=== PATIENT | female | born 1955 | race Caucasian/White ===

== ENCOUNTER 2020-09-19 13:59 | Outpatient (REF) | payer MEDICARE, SELFPAY ==
[2020-09-19 14:02] LABS: MANUAL DIFF FLAG NO
[2020-09-19 14:10] LABS: Basophils Absolute Auto 0.1 X10*3/uL (0.0-0.2); Basophils Percent Auto 0.9 % (0-2); Eosinophils Absolute Auto 0.2 X10*3/uL (0.0-0.4); Eosinophils Percent Auto 3.7 % (0-4); Hematocrit 42.6 % (37-47); Hemoglobin 13.7 g/dl (12.0-16.0); Imm Gran Abs Auto 0.01 X10*3/uL (0.00-0.03); Imm Gran Pct Auto 0.2 % (0.0-0.4); Lymphocytes Absolute Auto 1.6 X10*3/uL (1.2-4.9); Lymphocytes Percent Auto 29.5 % (20-40); Mean Corpuscular HGB Conc 32.2 g/dl (31.0-35.0); Mean Corpuscular Hemoglobin 30.6 pg (27.0-33.0); Mean Corpuscular Volume 95.3 fL (80-98); Mean Platelet Volume 9.6 fL (9.4-12.3); Monocytes Absolute Auto 0.4 X10*3/uL (0.1-1.2); Neutrophils Absolute Auto 3.2 X10*3/uL (2.0-8.3); Neutrophils Percent Auto 58.7 % (45-73); Platelet Count 231 X10*3/uL (160-400); Red Blood Count 4.47 X10*6/uL (4.20-5.50); Red Cell Distribution Width 13.4 % (11.0-16.0); White Blood Count 5.5 X10*3/uL (4.8-10.8)
[2020-09-19 14:38] LABS: Alanine Aminotransferase 25 U/L (0-31); Albumin Level 4.1 g/dL (3.5-5.0); Alkaline Phosphatase 65 U/L (39-117); Anion Gap 13 (12-20); Aspartate Amino Transferase 23 U/L (5-31); Bilirubin Total 0.6 mg/dL (0.0-1.0); Blood Urea Nitrogen 20 mg/dL (9-16); Calcium 8.8 mg/dL (8.4-10.2); Carbon Dioxide 29 mmol/L (22-29); Chloride 104 mmol/L (96-108); Estimated Glomerular Filt Rate > 60; Glucose Fasting 92 mg/dL (60-99); Potassium 4.8 mmol/L (3.3-5.1); Sodium 141 mmol/L (135-145); Total Protein 6.7 g/dL (6.5-8.0)
[2020-09-19 15:00] LABS: Thyroid Stimulating Hormone 3.22 uIU/mL (0.32-4.0)
== END 2020-09-19 14:00 | disposition home or self-care (01) ==
LOC: HO.LNP 13:59
PROVIDERS: Visit Provider Internal Medicine
DX: R06.02 Shortness of breath (principal)
CPT/HCPCS: 80053; 84443; 85025

== ENCOUNTER → 2020-10-28 12:55 | Outpatient (REF) | payer MEDICARE, SELFPAY ==
--- NOTE | 2020-10-28 13:00 | CA_ITS ---
Transthoracic Echocardiogram Patient (Last, First, Middle): Becky Rios R Gender: Female Date of : 1955 Age: 65 Procedure Date: 10/28/2020 Procedure Type: Transthoracic Echocardiogram Location: OP Height: 157.48 cm Weight: 86.18 kg BSA: 1.87 m2 Heart Rate: bpm BP: 147 / 80 mmHg Beauty Culturist: EVERETTE Referring MD: Jesus Malave MD Symptoms: SHORTNESS OF BREATH Study Quality: Good ECG Rhythm: Sinus Conclusions: - The left ventricular systolic function is normal. The visually estimated ejection fraction is between 60-65%. - There is a bicuspid aortic valve. There is mild to moderate aortic valve stenosis. Trace to mild aortic regurgitation. Findings Left Ventricle Normal left ventricular cavity size. There is normal left ventricular wall thickness. The left ventricular systolic function is normal. The visually estimated ejection fraction is between 60-65%. There is no evidence of regional wall motion abnormalities. Diastolic function is normal for age. Right Ventricle Normal right ventricular cavity size and systolic function. Atria The left atrium is normal in size. The right atrium is normal in size. Aortic Valve There is a bicuspid aortic valve. There is mild to moderate aortic valve stenosis. The peak aortic velocity is 2.33 m/s with a calculated peak gradient of 22 mmHg. The mean gradient is 15 mmHg. The aortic valve area is 1.33 cm2. Trace to mild aortic regurgitation. Dimensionless index 0.39. Mitral Valve The mitral valve appears normal. There is trace mitral valve regurgitation. There is no mitral valve stenosis. Pulmonic Valve The pulmonic valve was not well visualized. There is trace pulmonic valve regurgitation. Tricuspid Valve Normal tricuspid valve structure. There is trace tricuspid valve regurgitation. The pulmonary artery systolic pressure is normal. Great Vessels The asc aorta is normal in size. Top normal ascending aortic size at 3.6 cm. Venous The inferior vena cava is normal in size and collapses greater than 50% with inspiration. Pericardium/Pleural There is no evidence of pericardial effusion. Prior Study Comparison No significant change compared to prior study dated: 01/17/2019. Measurements M-Mode Liner Measurements Normals - Women/Men AOV Cusps: 2.00 1.5-2.6 cm/m2 2D Linear Measurements IVSd: 0.95 0.6-0.9/0.6-1.0 cm LVIDd: 4.59 3.9-5.3/4.2-5.9 cm LVIDd Index: 2.45 2.4-3.2/2.2-3.1 cm/m2 LVIDs: 3.10 2.0-3.6 cm LVPWd: 0.94 0.7-1.1 cm Ao Root: 2.70 2.1-3.5 cm LA Diam: 3.40 2.7-3.8/3.0-4.0 cm LAIDs Index: 1.82 1.5-2.3 cm/m2 LV Mass: 181.36 67-162/88-224 g LV Mass Index: 96.99 43-95/49-115 g/m2 LVOT Diam: 2.10 3.0+(-)1.3 cm 2D Systolic Function EF 4C: 66.50 >55% EF 2C: 65.50 >55% EF BiP: 67.00 >55% Mitral Valve MV Pk E: 0.75 MV PK A: 0.70 MV Decel Time: 183.00 E/A: 1.10 E'Lateral: 9.79 E'Medial: 7.94 E/E' Med: 9.50 E/E' Lat: 7.70 PHT: 54.00 MVA PHT: 4.07 Decel [place]: 4.11 Aortic Valve AoV Pk [place]: 2.33 AoV Mn [place]: 1.85 AoV VTI: 0.64 AoV Pk Grad: 22.00 Aov Mn Grad: 15.00 JENNIFER Cont.VTI: 1.33 AI Pk [place]: 3.84 AI [place]: 2.08 LVOT LVOT Pk [place]: 0.92 LVOT Mn [place]: 0.65 LVOT VTI: 0.24 LVOT Pk Grad: 3.00 LVOT Mn Grad: 2.00 LVOT Diam: 2.10 LVOT Area: 3.46 Diastolic Function MV Pk E: 0.75 MV Pk A: 0.70 E/A: 1.10 E'Medial: 7.94 E/E' Med: 9.50 E' Laterial: 9.79 E/E' Lat: 7.70 Tricuspid Valve TR Pk [place]: 1.83 TR Pk Grad: 13.00 RA Press: 3.00 RVSP: 16.00 Great Vessels Aorta Ao Root-2D: 2.70 2.0-3.7 cm Ao Asc: 3.60 2.1-3.4 cm Ao Arch: 2.70 Pulmonary Valve PV Pk [place]: 1.30 Peak PV Grad: 7.00 Updated in Other Vendor System with Status of Final Louis Brooks MD electronically signed on 10/30/2020 4:53:56 PM with status of Final
== END ==
LOC: HO.CARD 12:55
PROVIDERS: PCP Internal Medicine; Visit Provider Internal Medicine
DX: R06.02 Shortness of breath (principal)
CPT/HCPCS: 93306

== ENCOUNTER 2020-12-29 09:29 | Outpatient (REF) | payer MEDICARE, SELFPAY ==
--- NOTE | ~2020-12-29 | XR_ITS ---
EXAMINATION: XR CHEST CLINICAL INFORMATION: Shortness of breath COMPARISON: Previous chest CTA December 2016 TECHNIQUE: 2 views of the chest were obtained. FINDINGS: The heart does not appear enlarged. The ascending thoracic aorta is prominent. This is similar to previous chest CTA December 2016. Hilar and mediastinal contours are otherwise unremarkable. The lungs are clear. There is no pleural effusion or pneumothorax. There are degenerative changes of the spine. XR/XR chest 2V IMPRESSION: No evidence for acute disease in the chest. Prominent ascending thoracic aorta similar to December 2016 chest CTA.
== END 2020-12-29 09:30 | disposition home or self-care (01) ==
LOC: HO.XRAY 09:29
PROVIDERS: PCP Internal Medicine; Visit Provider Internal Medicine
DX: R06.02 Shortness of breath (principal)
CPT/HCPCS: 71046

== ENCOUNTER 2021-06-12 10:31 | Outpatient (REF) | payer MEDICARE, SELFPAY ==
[2021-06-12 10:33] LABS: MANUAL DIFF FLAG NO
[2021-06-12 10:45] LABS: Basophils Percent Auto 0.7 % (0-2); Eosinophils Absolute Auto 0.2 X10*3/uL (0.0-0.4); Eosinophils Percent Auto 3.7 % (0-4); Hematocrit 42.3 % (37.0-47.0); Hemoglobin 13.9 g/dl (12.0-16.0); Imm Gran Abs Auto 0.01 X10*3/uL (0.00-0.03); Imm Gran Pct Auto 0.2 % (0.0-0.4); Lymphocytes Absolute Auto 1.5 X10*3/uL (1.2-4.9); Lymphocytes Percent Auto 32.8 % (20-40); Mean Corpuscular HGB Conc 32.9 g/dl (31.0-35.0); Mean Corpuscular Volume 94.2 fL (80.0-98.0); Mean Platelet Volume 9.8 fL (9.4-12.3); Monocytes Absolute Auto 0.3 X10*3/uL (0.1-1.2); Monocytes Percent Auto 7.4 % (2-11); Neutrophils Absolute Auto 2.5 x10*3/uL (2.0-8.3); Neutrophils Percent Auto 55.2 % (45-73); Platelet Count 240 X10*3/uL (160-400); Red Blood Count 4.49 X10*6/uL (4.20-5.50); Red Cell Distribution Width 13.5 % (11.0-16.0); White Blood Count 4.6 X10*3/uL (4.8-10.8)
[2021-06-12 10:48] LABS: Appearance Urine HAZY; Color Urine YELLOW; Glucose Urine UA NEG (NEG); Leukocyte Esterase Urine 2+ (NEG); Nitrite Urine NEG (NEG); Specific Gravity - Urine 1.025 (1.005-1.025); Urine Blood NEG (NEG); Urine Ketones NEG (NEG); Urine Protein NEG (NEG-TRACE)
[2021-06-12 10:57] LABS: Alanine Aminotransferase 14 U/L (0-31); Albumin Level 4.3 g/dL (3.5-5.0); Alkaline Phosphatase 62 U/L (39-117); Anion Gap 13 (12-20); Aspartate Amino Transferase 18 U/L (5-31); Bilirubin Total 0.8 mg/dL (0.0-1.0); Blood Urea Nitrogen 21 mg/dL (9-16); Calcium 8.9 mg/dL (8.4-10.2); Carbon Dioxide 26 mmol/L (22-29); Chloride 104 mmol/L (96-108); Cholesterol 195 mg/dL; Estimated Glomerular Filt Rate 59; Glucose Fasting 108 mg/dL (60-99); HDL Cholesterol 74 mg/dL; LDL Cholesterol Calculated 107 mg/dl; Mucus Urine 2+ /LPF; Sodium 139 mmol/L (135-145); Squamous Epithelial Cell Urine 3+ /LPF; Total Protein 7.1 g/dL (6.5-8.0); Triglycerides 72 mg/dL
[2021-06-12 10:58] LABS: Bacteria Urine 2+ /LPF; RBC Urine 0 /HPF (0)
[2021-06-12 11:17] LABS: Vitamin D 25-OH Total 36.8 ng/mL (>30)
== END 2021-06-12 10:32 | disposition home or self-care (01) ==
LOC: HO.LNP 10:31
PROVIDERS: PCP Internal Medicine; Visit Provider Internal Medicine
DX: Z00.00 Encounter for general adult medical examination without abnormal findings (principal); I35.0 Nonrheumatic aortic (valve) stenosis; I73.00 Raynaud's syndrome without gangrene
CPT/HCPCS: 80053; 80061; 81001; 82306; 85025

== ENCOUNTER → 2021-09-07 08:17 | Outpatient (REF) | payer MEDICARE, SELFPAY ==
--- NOTE | 2021-09-07 08:23 | CA_ITS ---
Transthoracic Echocardiogram Patient (Last, First, Middle): Becky Rios R Gender: Female Date of : 1955 Age: 66 Procedure Date: 09/07/2021 Procedure Type: Transthoracic Echocardiogram Location: OP Height: 157.48 cm Weight: 90.72 kg BSA: 1.91 m2 Heart Rate: bpm BP: 136 / 80 mmHg Tank Hoop Bender: DAWIT Referring MD: Jesus Malave MD Symptoms: NON RHEUMATIC VALVE STENOSIS I35.0, MURMUR R01.1 Study Quality: Good ECG Rhythm: Sinus Conclusions: - The left ventricular systolic function is normal. The calculated ejection fraction is 58% by biplane method. - There is a bicuspid aortic valve. There is mild to moderate aortic valve stenosis. Trace to mild aortic regurgitation. - There is mild dilatation of the ascending aorta measuring 3.90 cm and no dilatation of the aortic arch measuring 2.60 cm. Findings Left Ventricle Normal left ventricular cavity size. There is normal left ventricular wall thickness. The left ventricular systolic function is normal. The calculated ejection fraction is 58% by biplane method. There is no evidence of regional wall motion abnormalities. Diastolic function is normal for age. Right Ventricle Normal right ventricular cavity size and systolic function. Atria Both atria are normal in size. Aortic Valve There is a bicuspid aortic valve. There is mild to moderate aortic valve stenosis. The peak aortic velocity is 2.50 m/s with a calculated peak gradient of 25 mmHg. The mean gradient is 14 mmHg. The aortic valve area is 1.10 cm2. Trace to mild aortic regurgitation. Dimensionless index 0.32. Mitral Valve There is mild anterior mitral leaflet thickening. There is trace mitral valve regurgitation. There is no mitral valve stenosis. Pulmonic Valve The pulmonic valve was not well visualized. Tricuspid Valve Normal tricuspid valve structure. There is trace tricuspid valve regurgitation. The right ventricular systolic pressure is 35 mmHg. Top normal RVSP. Great Vessels There is mild dilatation of the ascending aorta measuring 3.90 cm and no dilatation of the aortic arch measuring 2.60 cm. Venous The inferior vena cava is mildly dilated and collapses greater than 50% with inspiration. Pericardium/Pleural There is no evidence of pericardial effusion. Prior Study Comparison Changes noted compared to prior study dated: 10/28/2020. Slight progression of aortic stenosis. Increase in ascending aortic size. Measurements 2D Linear Measurements IVSd: 1.00 0.6-0.9/0.6-1.0 cm LVIDd: 4.57 3.9-5.3/4.2-5.9 cm LVIDd Index: 2.39 2.4-3.2/2.2-3.1 cm/m2 LVIDs: 3.22 2.0-3.6 cm LVPWd: 1.00 0.7-1.1 cm Ao Root: 2.90 2.1-3.5 cm LA Diam: 3.50 2.7-3.8/3.0-4.0 cm LAIDs Index: 1.83 1.5-2.3 cm/m2 LV Mass: 195.00 67-162/88-224 g LV Mass Index: 102.10 43-95/49-115 g/m2 LVOT Diam: 2.10 3.0+(-)1.3 cm 2D Systolic Function EF 4C: 56.20 >55% EF 2C: 63.50 >55% EF BiP: 57.80 >55% Mitral Valve MV Pk E: 0.83 MV PK A: 0.59 MV Decel Time: 185.00 E/A: 1.40 E'Lateral: 8.16 E'Medial: 8.49 E/E' Med: 9.70 E/E' Lat: 10.10 PHT: 54.00 MVA PHT: 4.07 Decel [place]: 4.47 Aortic Valve AoV Pk [place]: 2.50 AoV Mn [place]: 1.81 AoV VTI: 0.65 AoV Pk Grad: 25.00 Aov Mn Grad: 14.00 JENNIFER Cont.VTI: 1.10 LVOT LVOT Pk [place]: 0.80 LVOT Mn [place]: 0.56 LVOT VTI: 0.21 LVOT Pk Grad: 3.00 LVOT Mn Grad: 1.00 LVOT Diam: 2.10 LVOT Area: 3.46 Diastolic Function MV Pk E: 0.83 MV Pk A: 0.59 E/A: 1.40 E'Medial: 8.49 E/E' Med: 9.70 E' Laterial: 8.16 E/E' Lat: 10.10 Right Ventricle TAPSE (mm): 17.00 TVS' [place]: 11.50 Tricuspid Valve TR Pk [place]: 2.62 TR Pk Grad: 27.00 RA Press: 8.00 RVSP: 35.00 Great Vessels Aorta Ao Root-2D: 2.90 2.0-3.7 cm Ao Asc: 3.90 2.1-3.4 cm Ao Arch: 2.60 Updated in Other Vendor System with Status of Final Louis Brooks MD electronically signed on 09/07/2021 12:01:15 PM with status of Final
== END ==
LOC: HO.CARD 08:17
PROVIDERS: PCP Internal Medicine; Visit Provider Internal Medicine
DX: R01.1 Cardiac murmur, unspecified (principal); R35.0 Frequency of micturition
CPT/HCPCS: 93306

== ENCOUNTER 2022-06-17 10:33 | Outpatient (REF) | payer MEDICARE, SELFPAY ==
[2022-06-17 10:36] LABS: MANUAL DIFF FLAG NO
[2022-06-17 10:54] LABS: Appearance Urine Cloudy; Color Urine Yellow; Glucose Urine UA Negative (Negative); Leukocyte Esterase Urine Large (3+) (Negative); Nitrite Urine Negative (Negative); PH 6.5 (5.0-9.0); UMIC TRIGGER UA YES; Urine Blood Negative (Negative); Urine Ketones Negative (Negative); Urine Protein Negative (Neg-Trace)
[2022-06-17 10:58] LABS: Basophils Percent Auto 0.8 % (0-2); Eosinophils Absolute Auto 0.2 X10*3/uL (0.0-0.4); Eosinophils Percent Auto 3.1 % (0-4); Hematocrit 43.5 % (37.0-47.0); Hemoglobin 14.4 g/dl (12.0-16.0); Imm Gran Abs Auto 0.01 X10*3/uL (0.00-0.03); Imm Gran Pct Auto 0.2 % (0.0-0.4); Lymphocytes Absolute Auto 1.7 X10*3/uL (1.2-4.9); Lymphocytes Percent Auto 31.9 % (20-40); Mean Corpuscular HGB Conc 33.1 g/dl (31.0-35.0); Mean Corpuscular Volume 93.5 fL (80.0-98.0); Mean Platelet Volume 9.5 fL (9.4-12.3); Monocytes Absolute Auto 0.4 X10*3/uL (0.1-1.2); Monocytes Percent Auto 6.9 % (2-11); Neutrophils Percent Auto 57.1 % (45-73); Platelet Count 253 X10*3/uL (160-400); Red Blood Count 4.65 X10*6/uL (4.20-5.50); Red Cell Distribution Width 13.3 % (11.0-16.0); White Blood Count 5.2 X10*3/uL (4.8-10.8)
[2022-06-17 11:20] LABS: Bacteria Urine 4+ (None Seen); Hyaline Casts Urine 0-2 /LPF (0-2); RBC Urine 0-2 /HPF (0-2)
[2022-06-17 11:24] LABS: Alanine Aminotransferase 9 U/L (0-31); Albumin Level 4.4 g/dL (3.5-5.0); Alkaline Phosphatase 58 U/L (39-117); Anion Gap 14 (12-20); Aspartate Amino Transferase 17 U/L (5-31); Bilirubin Total 0.7 mg/dL (0.0-1.0); Blood Urea Nitrogen 16 mg/dL (9-16); Calcium 9.3 mg/dL (8.4-10.2); Carbon Dioxide 27 mmol/L (22-29); Chloride 105 mmol/L (96-108); Cholesterol 201 mg/dL; Estimated Glomerular Filt Rate 60; Glucose Fasting 104 mg/dL (60-99); HDL Cholesterol 72 mg/dL; LDL Cholesterol Calculated 112 mg/dl; Potassium 4.4 mmol/L (3.3-5.1); Sodium 142 mmol/L (135-145); Total Protein 7.2 g/dL (6.5-8.0); Triglycerides 89 mg/dL; Vitamin D 25-OH Total 41.3 ng/mL (>30)
== END 2022-06-17 10:34 | disposition home or self-care (01) ==
LOC: HO.LNP 10:33
PROVIDERS: Visit Provider Internal Medicine
DX: Z00.00 Encounter for general adult medical examination without abnormal findings (principal); N95.8 Other specified menopausal and perimenopausal disorders
CPT/HCPCS: 80053; 80061; 81001; 82306; 85025

== ENCOUNTER 2022-07-15 20:29 | Emergency (ER) | payer MEDICARE, SELFPAY ==
--- NOTE | ~2022-07-15 | XR_ITS ---
EXAMINATION: XR CHEST CLINICAL INFORMATION: Chest pain COMPARISON: Chest x-ray 12/29/2020 TECHNIQUE: Frontal portable view of the chest was obtained. 10:21 PM FINDINGS: No significant abnormality is noted involving the heart, lungs, mediastinum, bony thorax or soft tissues. XR/XR chest 1V IMPRESSION: Unremarkable examination.
--- NOTE | ~2022-07-15 | CT_ITS ---
EXAMINATION: CT HEAD WITHOUT CONTRAST CLINICAL INFORMATION: Weakness. COMPARISON: None TECHNIQUE: Contiguous axial imaging was performed from the skull base to vertex without intravenous administration of contrast. This CT examination was performed using dose optimization techniques as appropriate, variously including the following: *Automated exposure control *Adjustment of mA and/or kV according to patient size (this includes techniques or standardized protocols for targeted exams where dose is matched to indication/reason for exam; i.e. extremities or head) *Use of iterative reconstruction technique DLP: 605 mGy-cm FINDINGS: No intracranial hemorrhage, tumors or acute infarcts noted. Mild diffuse commensurate prominence of ventricles and sulci. No focal parenchymal lesions of the brain. Minimal segmental calcific atherosclerosis of the cavernous portions of the internal carotid arteries. Normal appearance of the orbits and globes. No significant opacification of the visualized paranasal sinuses, mastoid air cells and middle ear cavities. CT/CT head/brain wo IV con IMPRESSION: No acute intracranial abnormalities.
[2022-07-15 20:44] VITALS: BP 186/78; BP 196/94; PULSE 61; PULSE 67; RESP 15; TEMP 36.6; O2SAT 98; BMI 37.1
--- NOTE | 2022-07-15 21:00 | ECG_ITS ---
Test Reason : SOB Blood Pressure : / mmHG Vent. Rate : 061 BPM Atrial Rate : 061 BPM P-R Int : 174 ms QRS Dur : 066 ms QT Int : 418 ms P-R-T Axes : 053 -03 031 degrees QTc Int : 420 ms Normal sinus rhythm Normal ECG No previous ECGs available Referred By: Beatrice Torres Electronically Signed By:RUI MALDONADO MD
[2022-07-15 21:41] VITALS: BP 174/72; PULSE 65; RESP 16; TEMP 36.6; O2SAT 97
[2022-07-15 21:52] LABS: MANUAL DIFF FLAG NO
[2022-07-15 21:53] LABS: Basophils Absolute Auto 0.1 X10*3/uL (0.0-0.2); Basophils Percent Auto 0.9 % (0-2); Eosinophils Absolute Auto 0.2 X10*3/uL (0.0-0.4); Eosinophils Percent Auto 2.5 % (0-4); Hematocrit 40.4 % (37.0-47.0); Hemoglobin 13.4 g/dl (12.0-16.0); Imm Gran Abs Auto 0.03 X10*3/uL (0.00-0.03); Imm Gran Pct Auto 0.4 % (0.0-0.4); Lymphocytes Absolute Auto 2.8 X10*3/uL (1.2-4.9); Lymphocytes Percent Auto 34.7 % (20-40); Mean Corpuscular HGB Conc 33.2 g/dl (31.0-35.0); Mean Corpuscular Hemoglobin 30.2 pg (27.0-33.0); Mean Corpuscular Volume 91.2 fL (80.0-98.0); Mean Platelet Volume 8.7 fL (9.4-12.3); Monocytes Absolute Auto 0.6 X10*3/uL (0.1-1.2); Monocytes Percent Auto 6.9 % (2-11); Neutrophils Absolute Auto 4.5 x10*3/uL (2.0-8.3); Neutrophils Percent Auto 54.6 % (45-73); Platelet Count 265 X10*3/uL (160-400); Red Blood Count 4.43 X10*6/uL (4.20-5.50); Red Cell Distribution Width 13.4 % (11.0-16.0); White Blood Count 8.2 X10*3/uL (4.8-10.8)
--- NOTE | 2022-07-15 21:53 | ED.SOB ---
HPI - SOB/Dyspnea General Chief Complaint: Dyspnea Stated Complaint: sob Time Seen by Provider: 07/15/22 20:47 History of Present Illness HPI Narrative: Patient is a 67-year-old female presented today with having shortness of breath that is ongoing. Patient denies any coughing congestion upper respiratory symptoms. Vaccinated for COVID. No headache no nausea no diarrhea. No GI symptoms. No chest pain, no orthopnea no leg swelling. No history of blood clots. No history of cancer. Patient from home. Complaining of increasing shortness of breath. Generalized malaise. No change in sleep pattern. No change in weight. No changes in medication. Related Data Allergies Allergy/AdvReac Type Severity Reaction Status Date / Time No Known Allergies Allergy Unverified 04/24/20 15:14 Review of Systems Review of Systems: Positive shortness of breath No chest pain no diaphoresis All system reviewed otherwise negative Yes all other systems are reviewed and are negative PMFSH Past Medical History Attestation statement: The following information was validated with the patient. Social History Social History Smoked in Last 30 Days: No Use of substances other than those prescribed or required for medical reasons: No Advance Directives: No Advance Directives Information Provided: No Physical Exam Vital Signs: Vital Signs: Last Vital Signs Temp 97.9 F 07/15/22 21:41 Pulse 65 07/15/22 21:41 Resp 16 07/15/22 21:41 BP 174/72 H 07/15/22 21:41 Pulse Ox 97 07/15/22 21:41 O2 Del Method 07/15/22 21:41 BMI result Body Mass Index 37.1 Appearance: Alert. Oriented X3. No acute distress. Eyes: Pupils equal, round and reactive to light. ENT: Pharynx normal. Neck: Normal inspection. Neck supple. No lymph nodes noted. No crepitus CVS: Normal heart rate and rhythm. Pulses normal. Normal S1 and S2 Respiratory: No respiratory distress. Breath sounds normal. No Wheezing. No rales Abdomen: Soft and nontender. No rigidity. No distention. good BS x4 Skin: Skin warm and dry. Normal skin color. Normal skin turgor. Extremities: No lower extremity edema. Neurovascular intact to all extremities. No Lacerations. No Rash Neuro: Oriented X 3. No motor deficit. No sensory deficit. Moving all extermities. No slurred speech Medical Decision Making Medical Decision Making MDM Narrative: Well-appearing O2 sats 97% on room air no distress. Will check x-ray for pneumonia pneumothorax. Will also get D-dimer to rule out the possibility of PE. Patient is low risk for PE. With a negative D-dimer unlikely to have PE. Patient's troponin is pending. No chest pain. Pain atypical for ACS. A thyroid will also be checked. Hemoglobin will be checked for anemia. Patient's troponin was negative. EKG showed a sinus pattern heart rate was 60 W[place] QRS QT within normal limits is no acute ST segment elevation. In the setting of patient having no chest pain just generalized malaise. Unlikely this secondary to ACS. Patient's TSH is normal. No evidence for hypo or hyperthyroid. Patient's hemoglobin is normal. No evidence for anemia. D-dimer is less than 150. In the setting of low risk history unlikely to have pulmonary emboli. Her O2 sats 98% on room air. Her flu COVID RSV were all negative. CT scan of the head was grossly negative for any acute evidence of bleeding no large mass. Patient's O2 sats did not drop with ambulation. Will discharge patient home. Patient walks with a steady gait reflexes at patella were equal. No hyperreflexia noted. Symptoms not consistent with Guillain-[place] Differential Diagnoses: Differential diagnosis (Flu RSV COVID, anemia, congestive heart failure, pneumonia, pulmonary emboli, mass, hypothyroid) Consideration of admission/observation: Consideration of Admission/Observation (O2 sat 98% no need for admission ambulates okay, has good follow-up) Lab Attestation: I reviewed the patient's lab results. Independent interpretation of EKG, rhythm strip, radiology study: Independent interp EKG,rhythm strip, radiology study I performed an independent interpretation of the: EKG My interpretation is Patient's EKG showed a sinus pattern heart rate is 60 WV QRS QT within normal limits is no acute ST segment elevation. Tests considered but not performed: Tests Considered But Not Performed (No need for CTA given negative D-dimer) Discharge Plan Discharge Clinical Impression: Shortness of breath Patient Disposition: Home, Self-Care Instructions: Shortness of Breath (ED) Referrals: PhysicianRobin [Primary Care Provider] - 07/16/22
[2022-07-15 22:12] LABS: Troponin-I High Sensitivity 14.2 ng/L (<3.5-17.0)
[2022-07-15 22:13] LABS: B Type Natriuretic Peptide 27 pg/mL (<100)
[2022-07-15 22:16] LABS: D Dimer High Sensitivity < 150 NG/ML
[2022-07-16 00:01] LABS: Anion Gap 13 (12-20); Blood Urea Nitrogen 24 mg/dL (9-16); Carbon Dioxide 27 mmol/L (22-29); Chloride 104 mmol/L (96-108); Creatinine Clr Calc Pharmacy 67.5; Estimated Glomerular Filt Rate > 60; Glucose Random 106 mg/dL (60-115); Potassium 4.2 mmol/L (3.3-5.1); Sodium 140 mmol/L (135-145)
[2022-07-16 00:22] LABS: TSH reflex Free T4 3.47 uIU/mL (0.32-4.0)
[2022-07-16 01:12] LABS: Influenza A PCR NEGATIVE (Negative); Influenza B PCR NEGATIVE (Negative); Resp Syncy Virus RNA Qual PCR NEGATIVE (Negative); SARS COV2 PCR INHOUSE NEGATIVE (Negative)
[2022-07-16 01:58] VITALS: BP 147/78; PULSE 64; RESP 14; O2SAT 95
== END 2022-07-16 02:08 | disposition home or self-care (01) ==
PROVIDERS: Emergency Provider Emergency Medicine Emergency Medical Services
DX: R06.02 Shortness of breath (principal); R51.9 Headache, unspecified; R53.1 Weakness; Z20.822 Contact with and (suspected) exposure to COVID-19; Z79.899 Other long term (current) drug therapy
CPT/HCPCS: 0241U; 36415; 70450; 71045; 80048; 83880; 84443; 84484; 85025; 85379; 93005; 99284

== ENCOUNTER → 2022-07-16 09:16 | Outpatient (REF) | payer MEDICARE, SELFPAY ==
--- NOTE | 2022-07-16 09:19 | CA_ITS ---
Transthoracic Echocardiogram Patient (Last, First, Middle): Becky Rios R Gender: Female Date of : 1955 Age: 67 Procedure Date: 07/16/2022 Procedure Type: Transthoracic Echocardiogram Location: OP Height: 157.48 cm Weight: 92.08 kg BSA: 1.92 m2 Heart Rate: 56 bpm BP: 147 / 78 mmHg Youth Care Professional: SB Referring MD: Jesus Malave MD Donor Relations Officer: Jameel Cordoba MD Symptoms: AORTIC VALVE DIS ORDER I35.9 Study Quality: Adequate ECG Rhythm: Bradycardia Conclusions: - 1. Normal LV systolic function with LVEF of 60 65% 2. [id number] aortic stenosis mild aortic regurgitation with possible underlying bicuspid aortic valve 3. Mildly dilated ascending aorta 4.2 cm 4. Normal RV systolic pressure 5. No gross pericardial effusion Findings Left Ventricle Normal left ventricular size, thickness, and systolic function. The visually estimated ejection fraction is between 60-65%. Spectral Doppler is indicative of a normal filling pattern. Right Ventricle Normal right ventricular cavity size and systolic function. Atria Both atria are normal in size. Interatrial shunt cannot be excluded. Aortic Valve The aortic valve was not well visualized. There is moderate calcification of the aortic valve. There is mild to moderate aortic valve stenosis. The peak aortic gradient is 20 mmHg.The mean gradient is 12 mmHg. There is mild aortic valve regurgitation. Mitral Valve Normal mitral valve structure and function. There is trace mitral valve regurgitation. There is no mitral valve stenosis. Pulmonic Valve The pulmonic valve is likely normal. There is trace pulmonic valve regurgitation. Tricuspid Valve Normal tricuspid valve structure. There is trace tricuspid valve regurgitation. The right ventricular systolic pressure is normal. The right ventricular systolic pressure is 25 mmHg. Normal right atrial pressure. There is no evidence of pulmonary hypertension. Great Vessels The pulmonary artery was not well visualized. There is mild dilatation of the ascending aorta measuring 4.20 cm. Venous The inferior vena cava is normal in size and collapses greater than 50% with inspiration. Pericardium/Pleural There is no evidence of pericardial effusion. Prior Study Comparison Changes noted compared to prior study dated: 09/07/2021. ascending aorta is slightly enlarged on this study measured at 4.2 cm compared to prior study. Measurements 2D Linear Measurements IVSd: 0.84 0.6-0.9/0.6-1.0 cm LVIDd: 4.91 3.9-5.3/4.2-5.9 cm LVIDd Index: 2.56 2.4-3.2/2.2-3.1 cm/m2 LVIDs: 3.03 2.0-3.6 cm LVPWd: 0.92 0.7-1.1 cm LA Diam: 3.60 2.7-3.8/3.0-4.0 cm LAIDs Index: 1.88 1.5-2.3 cm/m2 LV Mass: 184.81 67-162/88-224 g LV Mass Index: 96.26 43-95/49-115 g/m2 LVOT Diam: 2.00 3.0+(-)1.3 cm 2D Systolic Function EF 4C: 57.70 >55% EF 2C: 64.10 >55% EF BiP: 61.70 >55% Mitral Valve MV Pk E: 0.72 MV PK A: 0.56 MV Decel Time: 208.00 E/A: 1.30 E'Lateral: 6.74 E'Medial: 5.33 E/E' Med: 13.40 E/E' Lat: 10.60 PHT: 61.00 MVA PHT: 3.61 Decel [place]: 3.44 Aortic Valve AoV Pk [place]: 2.25 AoV Mn [place]: 1.61 AoV VTI: 0.58 AoV Pk Grad: 20.00 Aov Mn Grad: 12.00 JENNIFER Cont.VTI: 1.09 AI Pk [place]: 4.07 AI [place]: 1.73 LVOT LVOT Pk [place]: 0.83 LVOT Mn [place]: 0.57 LVOT VTI: 0.20 LVOT Pk Grad: 3.00 LVOT Mn Grad: 2.00 LVOT Diam: 2.00 LVOT Area: 3.14 Diastolic Function MV Pk E: 0.72 MV Pk A: 0.56 E/A: 1.30 E'Medial: 5.33 E/E' Med: 13.40 E' Laterial: 6.74 E/E' Lat: 10.60 Right Ventricle TAPSE (mm): 18.90 TVS' [place]: 10.20 Tricuspid Valve TR Pk [place]: 2.33 TR Pk Grad: 22.00 RA Press: 3.00 RVSP: 25.00 Great Vessels Aorta Sinus of Valsalva: 2.90 2.0-3.5 cm Ao Asc: 4.20 2.1-3.4 cm Ao Arch: 3.20 Pulmonary Veins Pulm Vein S/D 1.20 Pulmonary Valve PV Pk [place]: 0.88 Peak PV Grad: 3.00 Updated in Other Vendor System with Status of Final Jameel Cordoba MD electronically signed on 07/17/2022 1:40:46 PM with status of Final
== END ==
LOC: HO.CARD 09:16
PROVIDERS: PCP Internal Medicine; Visit Provider Internal Medicine
DX: I35.9 Nonrheumatic aortic valve disorder, unspecified (principal)
CPT/HCPCS: 93306

== ENCOUNTER 2022-07-16 11:45 | Outpatient (REF) | payer MEDICARE, SELFPAY ==
--- NOTE | ~2022-07-16 | CT_ITS ---
EXAMINATION: CT ANGIOGRAM OF THE CHEST WITH AND WITHOUT CONTRAST (CT PULMONARY ANGIOGRAM FOR PE) EXAMINATION: CT ANGIOGRAM OF THE CHEST WITH CONTRAST (CT PULMONARY ANGIOGRAM FOR PE) CLINICAL INFORMATION: Shortness of breath. Evaluate for pulmonary embolism. COMPARISON: Chest CT from 12/16/2016. CXR from 07/15/2022. TECHNIQUE: Prior to contrast administration, noncontrast localization images were obtained. Subsequently, multidetector volumetric imaging was performed from the thoracic inlet to below the diaphragms following the administration of 65 mL Omnipaque 350 intravenous contrast. No contrast reaction reported. Sagittal, coronal, and MIP oblique sagittal reformatted images were obtained on the CT workstation, uploaded to PACS, and reviewed. This CT examination was performed using dose optimization techniques as appropriate, variously including the following: *Automated exposure control *Adjustment of mA and/or kV according to patient size (this includes techniques or standardized protocols for targeted exams where dose is matched to indication/reason for exam; i.e. extremities or head) *Use of iterative reconstruction technique DLP: Total exam dose-length product 127 mGy-cm FINDINGS: LUNGS AND PLEURA: Trachea and central airways are widely patent and normal in caliber. Mild mosaic attenuation of the lungs can represent air trapping phenomenon from inflammation of small airways. A few scattered linear opacities of atelectasis are present in both lungs. No airspace disease, pleural effusion or pneumothorax. QUALITY OF STUDY/CONTRAST BOLUS: Satisfactory. CARDIOVASCULAR: The pulmonary arteries are normal in size. No embolic filling defects are identified within the main, lobar or segmental vessels. The heart size is normal. No pericardial effusion. At the level of the right pulmonary artery, the ascending thoracic aorta is 3.9 cm AP and 3.8 cm transverse diameter (see saved encarnacion image). The ascending thoracic aorta was 4 cm on 12/16/2016. No aneurysm or dissection. The great vessels arising from the top of the aortic arch are widely patent. MEDIASTINUM/LOWER NECK: No mediastinal mass. The esophagus and visualized portion of the thyroid gland are unremarkable. LYMPHATICS: No pathologic sized axillary, hilar or mediastinal lymph nodes. UPPER ABDOMEN: No acute findings in the visualized portion of the upper abdomen. Cholelithiasis is noted. OSSEOUS STRUCTURES: Multilevel degenerative disc disease of the thoracic spine. There is a stairstep pattern of mild degenerative anterolisthesis at C7-T1, T1-T2, T2-T3 and T3-T4. Mild anterolisthesis also noted at T10-11 and T11-12. Bone island of T10 vertebral body. No suspicious osseous lesions. CT/CT angio chest PE protocol IMPRESSION: * No evidence of pulmonary embolism. * There are a few scattered linear opacities of atelectasis in both lungs, which have mild mosaic attenuation. This could represent mild air trapping phenomenon from inflammation of small airways.
[2022-07-16] MEDS: iohexoL 350 MG/ML 100 ML INFUS..BTL 65 ML IV (12:18)
== END 2022-07-16 11:46 | disposition home or self-care (01) ==
LOC: HO.CT 11:45
PROVIDERS: PCP Internal Medicine; Visit Provider Internal Medicine
DX: R06.02 Shortness of breath (principal)
CPT/HCPCS: 71275; Q9967

== ENCOUNTER 2022-11-29 10:53 | Outpatient (REF) | payer MEDICARE, SELFPAY ==
--- NOTE | ~2022-11-29 | XR_ITS ---
EXAMINATION: AP PELVIS AND BILATERAL HIPS XR KNEE, RIGHT CLINICAL INFORMATION: Pain. COMPARISON: MRI lumbar spine of 01/24/2015. TECHNIQUE: AP and lateral views of the right knee. AP pelvis and 2 views of each hip. FINDINGS: RIGHT KNEE: AP and lateral views of the right knee performed. Right knee joint spaces are maintained. No acute fracture or dislocation. No right knee effusion. No significant spurring. AP PELVIS AND BILATERAL HIPS. AP view of the pelvis does not demonstrate any evidence of acute fracture or diastasis. There is some mild sclerosis about the sacroiliac joints bilaterally but without evidence of fusion or widening. Patient status post previous spinal surgery and fusion at the L4-L5 level. Degenerative disc disease is seen at the L5-S1 level. 2 views of the right hip demonstrate significant degenerative change with loss of the joint space superiorly and with marginal sclerosis and spurring. No femoral head collapse is identified. There is mild spurring of the right greater trochanter. 2 views of the left hip do not demonstrate any evidence of acute fracture or dislocation. There is some mild marginal spurring present. The joint space appears maintained. No destructive lytic or sclerotic lesions identified. No evidence of femoral head collapse. XR/XR knee RT 2V IMPRESSION: Status post spinal fusion L4-L5 with hardware intact. Degenerative disc disease L5-S1 level. Significant degenerative joint disease involving the right hip. No significant right knee abnormality appreciated.
--- NOTE | ~2022-11-29 | XR_ITS ---
EXAMINATION: AP PELVIS AND BILATERAL HIPS XR KNEE, RIGHT CLINICAL INFORMATION: Pain. COMPARISON: MRI lumbar spine of 01/24/2015. TECHNIQUE: AP and lateral views of the right knee. AP pelvis and 2 views of each hip. FINDINGS: RIGHT KNEE: AP and lateral views of the right knee performed. Right knee joint spaces are maintained. No acute fracture or dislocation. No right knee effusion. No significant spurring. AP PELVIS AND BILATERAL HIPS. AP view of the pelvis does not demonstrate any evidence of acute fracture or diastasis. There is some mild sclerosis about the sacroiliac joints bilaterally but without evidence of fusion or widening. Patient status post previous spinal surgery and fusion at the L4-L5 level. Degenerative disc disease is seen at the L5-S1 level. 2 views of the right hip demonstrate significant degenerative change with loss of the joint space superiorly and with marginal sclerosis and spurring. No femoral head collapse is identified. There is mild spurring of the right greater trochanter. 2 views of the left hip do not demonstrate any evidence of acute fracture or dislocation. There is some mild marginal spurring present. The joint space appears maintained. No destructive lytic or sclerotic lesions identified. No evidence of femoral head collapse. XR/XR hips LEA min 3V IMPRESSION: Status post spinal fusion L4-L5 with hardware intact. Degenerative disc disease L5-S1 level. Significant degenerative joint disease involving the right hip. No significant right knee abnormality appreciated.
== END 2022-11-29 10:54 | disposition home or self-care (01) ==
LOC: HO.XRAY 10:53
PROVIDERS: PCP Internal Medicine; Visit Provider Internal Medicine
DX: M25.552 Pain in left hip (principal); M25.551 Pain in right hip
CPT/HCPCS: 73522; 73560

== ENCOUNTER 2023-03-29 14:49 | Outpatient (AMB) | payer MEDICARE, SELFPAY ==
[2023-03-29 14:54] VITALS: BP 150/80; PULSE 55; BMI 29.8
--- NOTE | 2023-03-29 14:54 | MHC.OFFVIS ---
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 In the past, she was seen regarding bicuspid aortic valve but we have not seen recently. Her significant other has been diagnosed with dementia and she is dealing with that issue for some time. Otherwise, she needs hip surgery and hence preoperative cardiac evaluation. Overall, she does not really have any clear exertional symptoms like chest pain or shortness of breath. However, there is some limitation from the pain itself. Before all of this, she was very active and used to play tennis extra. No documented coronary disease, myocardial infarction. Her blood pressures are on the higher side but she does not seem to be on blood pressure medicines. [facility] Medical History (Updated 03/29/23 @ 15:38 by Louis Brooks MD) Ascending aorta enlargement Bicuspid aortic valve Non-rheumatic aortic stenosis Family History (Updated 03/29/23 @ 15:00 by Yeny Nunez) Mother Heart problem Father Heart problem Social History (Updated 03/29/23 @ 15:00 by Yeny Nunez) Alcohol intake: never Patient Tobacco Use Status: Never used Tobacco Review of Systems Const Denies weakness ENT Denies dizziness Card Denies chest pain, Denies chest pain with activity, Denies syncope, Denies rapid heart rate, Denies pedal edema, Denies edema, Denies leg edema, Denies lightheadedness, Denies palpitations, Denies dyspnea, Denies dyspnea on exertion and Denies orthopnea Resp Denies cough, Denies dyspnea and Denies dyspnea on exertion GI Denies hematochezia and Denies change in stool character Musc Denies abnormal gait, Denies muscle cramps, Denies muscle weakness, Denies numbness, Denies radiating pain into limb and Denies tingling Neuro Denies abnormal gait, Denies dizziness, Denies syncope, Denies numbness, Denies tingling and Denies weakness Endo Denies palpitations Physical Exam Vital Signs: Last Vital Signs Pulse 55 03/29/23 14:54 BP 150/80 H 03/29/23 14:54 BMI result Body Mass Index 29.8 Const General: comfortable and no acute distress Orientation/consciousness: patient oriented x3 HEENT Other: Unremarkable Head: Yes normal to inspection Neck Neck: Yes normal visual inspection Chest Chest palpation & inspection: normal inspection of the chest Resp Auscultation: clear to auscultation bilaterally Cardio Palpation: normal PMI Heart sounds: S1 normal heart sound present, S2 normal heart sound present, no gallops, Murmur heart sound present systolic II/ and at the right sternal border and no rubs GI Palpation (GI): Soft to palpation Back/Spine/Pelvis Other: unremarkable Skin General skin exam: no rashes or lesions noted Neuro General: patient oriented x3 Extrem General: Yes normal to inspection Psych Mental Status: mental status grossly normal Office Procedures EKG Details: EKG with sinus bradycardia 55/Min; no significant ST-T changes and otherwise unremarkable[place] [address]-[id number], Complete Assessment & Plan Assessment & Plan (1) Preoperative cardiovascular examination: Code(s): Z01.810 - Encounter for preprocedural cardiovascular examination (2) Non-rheumatic aortic stenosis: Code(s): I35.0 - Nonrheumatic aortic (valve) stenosis (3) Bicuspid aortic valve: Code(s): Q23.1 - Congenital insufficiency of aortic valve (4) Ascending aorta enlargement: Code(s): I77.89 - Other specified disorders of arteries and arterioles (5) Elevated blood pressure reading without diagnosis of hypertension: Code(s): R03.0 - Elevated blood-pressure reading, without diagnosis of hypertension Plan In the most recent echocardiogram from July, LVEF 60-65%. Ibjq-ug-dtmbhnqq aortic stenosis with suspected bicuspid aortic valve. Mild ascending aortic dilatation at 4.2 cm. In the echocardiogram prior to that, ascending aortic size was 3.9 cm. Hence there is a change. With regard to the hip surgery, suggest myocardial perfusion imaging for further evaluation. With regard to bicuspid aortic valve/aortic stenosis/aortic dilatation, will need periodic echocardiograms. Otherwise, blood pressure seems to be on the higher side and she will need to probably do some home blood pressures and may need medications for the same. She would like to consolidate her care with her PCP. We will see her as and when necessary. She would also like to get echocardiograms through her own PCP who will order. Orders: Orders CA stress test Today Z01.810 - Encounter for preprocedural cardiovascular examination NM cardiolite stress test Today Z01.810 - Encounter for preprocedural cardiovascular examination Coding Level of Care Code New Pt Level 4 (41715) Diagnoses Preoperative cardiovascular examination Z01.810 Non-rheumatic aortic stenosis I35.0 Bicuspid aortic valve Q23.1 Ascending aorta enlargement I77.89 Elevated blood pressure reading without diagnosis of hypertension R03.0 CPT Codes EKG - CPT: [id number], Complete ([id number])
== END 2023-03-29 15:23 | disposition home or self-care (01) ==
PROVIDERS: PCP Internal Medicine; Referring Provider Internal Medicine; Visit Provider Internal Medicine
DX: I77.89 Other specified disorders of arteries and arterioles (principal); I35.0 Nonrheumatic aortic (valve) stenosis; Z01.810 Encounter for preprocedural cardiovascular examination; R00.1 Bradycardia, unspecified
CPT/HCPCS: 93010; 99204

== ENCOUNTER → 2023-03-29 14:49 | Outpatient (BNVA) | payer MEDICARE, SELFPAY | PROVIDERS: PCP Internal Medicine; Referring Provider Internal Medicine; Visit Provider Internal Medicine | DX: Z01.810 Encounter for preprocedural cardiovascular examination (principal); I35.0 Nonrheumatic aortic (valve) stenosis; I77.89 Other specified disorders of arteries and arterioles; R03.0 Elevated blood-pressure reading, without diagnosis of hypertension; Q23.1 Congenital insufficiency of aortic valve | CPT/HCPCS: 93005; 99202 ==

== ENCOUNTER → 2023-04-18 08:50 | Outpatient (REF) | payer MEDICARE, SELFPAY ==
--- NOTE | ~2023-04-18 | NM_ITS ---
Exercise Myocardial perfusion study Indication: Preoperative cardiovascular risk stratification Technique: The patient was brought in for an exercise perfusion study on 04/18/2023. Patient performed exercise as per Cl protocol and was injected 25 mCi of sestamibi was given intravenously one target HR was achieved. Images were obtained using the SPECT gamma camera interlaced with the gating device. Images were obtained in supine position. Resting perfusion study was performed on 04/19/2023. Patient was administered 25 mCi of sestamibi intravenously at rest. Images were then obtained in supine position. Images obtained with and without CT attenuation. Total DLP 84 mGy-cm. Images were processed with the software and compared side to side in short axis, horizontal long axis and vertical long axis views. Findings: The stress perfusion study showed non attenuated images show minimally reduced uptake in the LV myocardium. Remainder of the LV myocardium normally perfused. Attenuation corrected images show mildly to moderately reduced uptake in the apex of the LV myocardium.. The gated study shows normal LV systolic function with calculated LVEF of 57%. LV cavity is normal in size. The gated study shows normal systolic wall thickening and contraction of all segments. There is no transient ischemic dilation. Resting study shows no change in perfusion pattern compared to stress perfusion study. Gating at rest reveals normal systolic wall motion with ejection fraction at 55%. The findings are consistent with no clear reversible defect suggestive ischemia. Minimal apical defect most likely due to soft tissue attenuation. NM/NM cardiolite stress test Impression: 1. Normal myocardial perfusion 2. Gated LVEF is 57% 3. Transient ischemic dilatation not present Stress EKG is negative for ischemia
--- NOTE | 2023-04-18 08:52 | CA_ITS ---
Acquisition Time: 2023-04-18 09:05:02 Total Exercise Time: 00:07:35 Test Indications: AORTIC STENOSIS Medications: ASA CELECOXIB ESTRADRAL Protocol: SUZIE Max HR: 146 BPM 97% of Pred: 150 BPM Max BP: 172/070 mmHG Max Work Load: 9.4 METS Exercise stress test exercuse 7 min 35 sec of Suzie protocol achieving 97% MPHR, without anignal symptoms, with isolated PVCs, with normotensive response to exercise, without EKG changes. Nuclear images pending. Test reviewed with Dr. Gunter. Referred By: Gianna Gunter Overread By: GIANNA GUNTER
== END ==
LOC: HO.CARD 08:50
PROVIDERS: PCP Internal Medicine; Visit Provider Internal Medicine
DX: Z01.810 Encounter for preprocedural cardiovascular examination (principal)
CPT/HCPCS: 78452; 93017; A9500

== ENCOUNTER → 2023-04-18 09:13 | Outpatient (BNV) | payer MEDICARE, SELFPAY | PROVIDERS: PCP Internal Medicine; Visit Provider Internal Medicine Cardiovascular Disease | DX: I35.0 Nonrheumatic aortic (valve) stenosis (principal); Z01.810 Encounter for preprocedural cardiovascular examination | CPT/HCPCS: 78452; 93016; 93018 ==

== ENCOUNTER 2023-06-23 10:52 | Outpatient (REF) | payer MEDICARE, SELFPAY ==
[2023-06-23 10:55] LABS: MANUAL DIFF FLAG NO
[2023-06-23 11:00] LABS: Basophils Absolute Auto 0.1 X10*3/uL (0.0-0.2); Eosinophils Absolute Auto 0.2 X10*3/uL (0.0-0.4); Eosinophils Percent Auto 2.9 % (0-4); Hematocrit 42.9 % (37.0-47.0); Imm Gran Abs Auto 0.02 X10*3/uL (0.00-0.03); Imm Gran Pct Auto 0.4 % (0.0-0.4); Lymphocytes Absolute Auto 1.3 X10*3/uL (1.2-4.9); Lymphocytes Percent Auto 24.6 % (20-40); Mean Corpuscular HGB Conc 32.6 g/dl (31.0-35.0); Mean Corpuscular Hemoglobin 30.4 pg (27.0-33.0); Mean Corpuscular Volume 93.3 fL (80.0-98.0); Mean Platelet Volume 10.2 fL (9.4-12.3); Monocytes Absolute Auto 0.3 X10*3/uL (0.1-1.2); Neutrophils Absolute Auto 3.4 x10*3/uL (2.0-8.3); Neutrophils Percent Auto 65.1 % (45-73); Platelet Count 191 X10*3/uL (160-400); Red Cell Distribution Width 13.6 % (11.0-16.0); White Blood Count 5.2 X10*3/uL (4.8-10.8)
[2023-06-23 11:01] LABS: Appearance Urine Clear; Color Urine Yellow; Glucose Urine UA Negative (Negative); Leukocyte Esterase Urine Moderate (2+) (Negative); Nitrite Urine Negative (Negative); PH 5.5 (5.0-9.0); UMIC TRIGGER UACC YES; Urine Blood Negative (Negative); Urine Ketones Negative (Negative); Urine Protein Negative (Neg-Trace)
[2023-06-23 11:06] LABS: Bacteria Urine 1+ (None Seen); Hyaline Casts Urine 0-2 /LPF (0-2); RBC Urine 0-2 /HPF (0-2); UACC Culture Trigger YES
[2023-06-23 11:50] LABS: Alanine Aminotransferase 8 U/L (0-31); Albumin Level 4.5 g/dL (3.5-5.0); Alkaline Phosphatase 74 U/L (39-117); Anion Gap 13 (12-20); Aspartate Amino Transferase 22 U/L (5-31); Bilirubin Total 0.6 mg/dL (0.0-1.0); Blood Urea Nitrogen 19 mg/dL (9-16); Calcium 9.5 mg/dL (8.4-10.2); Carbon Dioxide 26 mmol/L (22-29); Chloride 105 mmol/L (96-108); Cholesterol 201 mg/dL (<200); Estimated Glomerular Filt Rate > 60; Glucose Fasting 89 mg/dL (60-99); HDL Cholesterol 79 mg/dL (>40); LDL Cholesterol Calculated 113 mg/dL (<100); Potassium 4.3 mmol/L (3.3-5.1); Sodium 140 mmol/L (135-145); Total Protein 7.7 g/dL (6.5-8.0); Triglycerides 49 mg/dL (<150)
== END 2023-06-23 10:53 | disposition home or self-care (01) ==
LOC: HO.LNP 10:52
PROVIDERS: Visit Provider Internal Medicine
DX: Z00.00 Encounter for general adult medical examination without abnormal findings (principal); R82.90 Unspecified abnormal findings in urine
CPT/HCPCS: 80053; 80061; 81001; 85025; 87086

== ENCOUNTER → 2023-08-16 10:42 | Outpatient (REF) | payer MEDICARE, SELFPAY ==
--- NOTE | 2023-08-16 11:00 | CA_ITS ---
Transthoracic Echocardiogram Patient (Last, First, Middle): Becky Rios R Gender: Female Date of : 1955 Age: 68 Procedure Date: 08/16/2023 Procedure Type: Transthoracic Echocardiogram Location: OP Height: 157.48 cm Weight: 73.94 kg BSA: 1.75 m2 Heart Rate: bpm BP: 120 / 72 mmHg [employer] Piping Designer: CAM Referring MD: Jesus Malave MD Director Group Sales: Jameel Cordoba MD Symptoms: I35.9 AORTIC VALVE DIS ORDER Study Quality: Adequate ECG Rhythm: Sinus Conclusions: - 1. Normal LV systolic function with LVEF of 60-65% 2. Bicuspid aortic valve with [id number] aortic stenosis and mild aortic regurgitation 3. Mildly dilated ascending aorta at 4.2 cm 4. Normal RV systolic pressure 5. No gross pericardial effusion Findings Left Ventricle Normal left ventricular size, thickness, and systolic function. The visually estimated ejection fraction is between 60-65%. Spectral Doppler is indicative of a normal filling pattern. Peak GLS is -19.7%, within normal limits Right Ventricle Normal right ventricular cavity size and systolic function. Atria The left atrium is likely dilated. There is no evidence of interatrial shunt. The right atrium is normal in size. Aortic Valve There is a bicuspid aortic valve. There is moderate calcification of the aortic valve. There is mild to moderate aortic valve stenosis. The peak aortic gradient is 26 mmHg.The mean gradient is 16 mmHg. There is mild aortic valve regurgitation. Mitral Valve Normal mitral valve structure and function. There is trace mitral valve regurgitation. There is no mitral valve stenosis. Pulmonic Valve The pulmonic valve is likely normal. There is trace pulmonic valve regurgitation. Tricuspid Valve Normal tricuspid valve structure. There is mild tricuspid valve regurgitation. The right ventricular systolic pressure is normal. The right ventricular systolic pressure is 32 mmHg. Normal right atrial pressure. There is no evidence of pulmonary hypertension. Great Vessels The pulmonary artery was not well visualized. There is mild dilatation of the ascending aorta measuring 4.20 cm. Venous The inferior vena cava is normal in size and collapses greater than 50% with inspiration. Pericardium/Pleural There is no evidence of pericardial effusion. Prior Study Comparison No significant change compared to prior study dated: 07/16/2022. Measurements 2D Linear Measurements IVSd: 0.95 0.6-0.9/0.6-1.0 cm LVIDd: 4.69 3.9-5.3/4.2-5.9 cm LVIDd Index: 2.68 2.4-3.2/2.2-3.1 cm/m2 LVIDs: 2.97 2.0-3.6 cm LVPWd: 1.03 0.7-1.1 cm LA Diam: 3.60 2.7-3.8/3.0-4.0 cm LAIDs Index: 2.06 1.5-2.3 cm/m2 LV Mass: 201.74 67-162/88-224 g LV Mass Index: 115.28 43-95/49-115 g/m2 LVOT Diam: 2.00 3.0+(-)1.3 cm 2D Systolic Function EF 4C: 59.60 >55% EF 2C: 67.60 >55% EF BiP: 64.20 >55% Mitral Valve MV Pk E: 0.80 MV PK A: 0.55 MV Decel Time: 172.00 E/A: 1.40 E'Lateral: 8.49 E'Medial: 7.72 E/E' Med: 10.40 E/E' Lat: 9.40 PHT: 50.00 MVA PHT: 4.40 Decel [place]: 4.66 Aortic Valve AoV Pk [place]: 2.57 AoV Mn [place]: 1.84 AoV VTI: 0.69 AoV Pk Grad: 26.00 Aov Mn Grad: 16.00 JENNIFER Cont.VTI: 1.04 AI Pk [place]: 3.88 AI [place]: 1.69 LVOT LVOT Pk [place]: 0.83 LVOT Mn [place]: 0.63 LVOT VTI: 0.23 LVOT Pk Grad: 3.00 LVOT Mn Grad: 2.00 LVOT Diam: 2.00 LVOT Area: 3.14 Diastolic Function MV Pk E: 0.80 MV Pk A: 0.55 E/A: 1.40 E'Medial: 7.72 E/E' Med: 10.40 E' Laterial: 8.49 E/E' Lat: 9.40 Right Ventricle TAPSE (mm): 20.00 TVS' [place]: 10.90 Tricuspid Valve TR Pk [place]: 2.44 TR Pk Grad: 24.00 RA Press: 8.00 RVSP: 32.00 Great Vessels Aorta Sinus of Valsalva: 2.80 2.0-3.[address] [place]: 2.29 1.7-3.4 cm Ao Asc: 4.20 2.1-3.4 cm Ao Arch: 3.20 Updated in Other Vendor System with Status of Final Jameel Cordoba MD electronically signed on 08/16/2023 5:33:24 PM with status of Final
== END ==
LOC: HO.CARD 10:42
PROVIDERS: PCP Internal Medicine; Visit Provider Internal Medicine
DX: I35.9 Nonrheumatic aortic valve disorder, unspecified (principal)
CPT/HCPCS: 93306; 93356

== ENCOUNTER → 2023-08-16 11:00 | Outpatient (BNV) | payer MEDICARE, SELFPAY | PROVIDERS: PCP Internal Medicine; Visit Provider Internal Medicine Cardiovascular Disease | DX: I35.9 Nonrheumatic aortic valve disorder, unspecified (principal) | CPT/HCPCS: 93306 ==

== ENCOUNTER 2024-07-26 10:42 | Outpatient (REF) | payer MEDICARE, SELFPAY ==
[2024-07-26 10:54] LABS: MANUAL DIFF FLAG NO
[2024-07-26 11:14] LABS: Basophils Absolute Auto 0.1 X10*3/uL (0.0-0.2); Basophils Percent Auto 1.4 % (0-2); Eosinophils Absolute Auto 0.2 X10*3/uL (0.0-0.4); Eosinophils Percent Auto 5.3 % (0-4); Hematocrit 41.7 % (37.0-47.0); Hemoglobin 14.1 g/dl (12.0-16.0); Imm Gran Abs Auto 0.02 X10*3/uL (0.00-0.03); Imm Gran Pct Auto 0.5 % (0.0-0.4); Lymphocytes Absolute Auto 1.5 X10*3/uL (1.2-4.9); Lymphocytes Percent Auto 35.4 % (20-40); Mean Corpuscular HGB Conc 33.8 g/dl (31.0-35.0); Mean Corpuscular Hemoglobin 30.9 pg (27.0-33.0); Mean Corpuscular Volume 91.2 fL (80.0-98.0); Mean Platelet Volume 9.4 fL (9.4-12.3); Monocytes Absolute Auto 0.3 X10*3/uL (0.1-1.2); Monocytes Percent Auto 6.9 % (2-11); Neutrophils Absolute Auto 2.2 x10*3/uL (2.0-8.3); Neutrophils Percent Auto 50.5 % (45-73); Platelet Count 261 X10*3/uL (160-400); Red Blood Count 4.57 X10*6/uL (4.20-5.50); Red Cell Distribution Width 13.4 % (11.0-16.0); White Blood Count 4.4 X10*3/uL (4.8-10.8)
[2024-07-26 11:27] LABS: Appearance Urine Cloudy; Color Urine Yellow; Glucose Urine UA Negative (Negative); Leukocyte Esterase Urine Moderate (2+) (Negative); Nitrite Urine Negative (Negative); UMIC TRIGGER UACC YES; Urine Blood Negative (Negative); Urine Ketones Negative (Negative); Urine Protein Negative (Neg-Trace)
[2024-07-26 11:42] LABS: Bacteria Urine 1+ (None Seen); Hyaline Casts Urine 0-2 /LPF (0-2); RBC Urine 0-2 /HPF (0-2); UACC Culture Trigger YES; WBC Urine 0-5 /HPF (0-5)
[2024-07-26 11:52] LABS: Alanine Aminotransferase 14 U/L (0-31); Albumin Level 4.1 g/dL (3.5-5.0); Alkaline Phosphatase 58 U/L (39-117); Anion Gap 10 (12-20); Aspartate Amino Transferase 23 U/L (5-31); Bilirubin Total 0.7 mg/dL (0.0-1.0); Blood Urea Nitrogen 18 mg/dL (9-16); Carbon Dioxide 29 mmol/L (22-29); Chloride 107 mmol/L (96-108); Cholesterol 176 mg/dL (<200); Estimated Glomerular Filt Rate > 60; Glucose Fasting 92 mg/dL (60-99); HDL Cholesterol 67 mg/dL (>40); LDL Cholesterol Calculated 99 mg/dL (<100); Potassium 3.9 mmol/L (3.3-5.1); Sodium 142 mmol/L (135-145); Total Protein 6.9 g/dL (6.5-8.0); Triglycerides 50 mg/dL (<150)
== END 2024-07-26 10:43 | disposition home or self-care (01) ==
LOC: HO.LNP 10:42
PROVIDERS: Visit Provider Internal Medicine
DX: Z00.00 Encounter for general adult medical examination without abnormal findings (principal)
CPT/HCPCS: 80053; 80061; 81001; 85025; 87086

== ENCOUNTER → 2024-08-24 08:41 | Outpatient (REF) | payer MEDICARE, SELFPAY ==
--- NOTE | 2024-08-24 08:47 | CA_ITS ---
Transthoracic Echocardiogram Patient (Last, First, Middle): Becky Rios R Gender: Female Date of : 1955 Age: 69 Procedure Date: 08/24/2024 Procedure Type: Transthoracic Echocardiogram Location: OP Height: 160.02 cm Weight: 87.54 kg BSA: 1.90 m2 Heart Rate: 69 bpm BP: 142 / 72 mmHg Lvn: SB Referring MD: Jesus Malave MD Symptoms: I35.9AV DISORDER Study Quality: Adequate ECG Rhythm: Sinus Conclusions: - Normal left ventricular cavity size. The left ventricular systolic function is normal. The visually estimated ejection fraction is between 60-65%. - E/E prime ratio is between 8 and 15 consistent with indeterminate filling pressures. - Normal right ventricular cavity size and systolic function. - There is mild to moderate aortic valve stenosis. The peak aortic velocity is 2.42 m/s. The mean gradient is 13 mmHg. The aortic valve area is 1.13 cm2. - There is mild dilatation of the ascending aorta measuring 4.00 cm and mild dilatation of the aortic arch measuring 3.30 cm. Findings Left Ventricle Normal left ventricular cavity size. The left ventricular systolic function is normal. The visually estimated ejection fraction is between 60-65%. Diastolic function is normal for age. Spectral Doppler is indicative of an impaired relaxation filling pattern. E/E prime ratio is between 8 and 15 consistent with indeterminate filling pressures. There is mild septal asymmetric hypertrophy. Right Ventricle Normal right ventricular cavity size and systolic function. Atria The left atrium is likely dilated. Aortic Valve There is mild calcification of the aortic valve. There is mild to moderate aortic valve stenosis. The peak aortic velocity is 2.42 m/s. The mean gradient is 13 mmHg. The aortic valve area is 1.13 cm2. There is trace (trivial) aortic valve regurgitation. Mitral Valve The mitral valve appears normal. There is no mitral valve regurgitation. There is no mitral valve stenosis. Pulmonic Valve The pulmonic valve is normal. There is trace pulmonic valve regurgitation. Tricuspid Valve Normal tricuspid valve structure. There is no tricuspid valve regurgitation. Normal right atrial pressure. There is no evidence of pulmonary hypertension. Great Vessels There is mild dilatation of the ascending aorta measuring 4.00 cm and mild dilatation of the aortic arch measuring 3.30 cm. The visualized portions of the pulmonary artery and branches are normal. Venous The inferior vena cava is normal in size and collapses greater than 50% with inspiration. Pericardium/Pleural There is no evidence of pericardial effusion. Prior Study Comparison No significant change compared to prior study dated: 08/16/2023. Measurements 2D Linear Measurements IVSd: 1.13 0.6-0.9/0.6-1.0 cm LVIDd: 4.83 3.9-5.3/4.2-5.9 cm LVIDd Index: 2.54 2.4-3.2/2.2-3.1 cm/m2 LVIDs: 3.49 2.0-3.6 cm LVPWd: 0.77 0.7-1.1 cm LA Diam: 3.70 2.7-3.8/3.0-4.0 cm LAIDs Index: 1.95 1.5-2.3 cm/m2 LV Mass: 199.97 67-162/88-224 g LV Mass Index: 105.25 43-95/49-115 g/m2 LVOT Diam: 2.10 3.0+(-)1.3 cm 2D Systolic Function EF 4C: 71.70 >55% EF 2C: 54.50 >55% EF BiP: 63.70 >55% Mitral Valve MV Pk E: 0.71 MV PK A: 0.57 MV Decel Time: 184.00 E/A: 1.20 E'Lateral: 6.74 E'Medial: 5.33 E/E' Med: 13.30 E/E' Lat: 10.50 PHT: 54.00 MVA PHT: 4.07 Decel [place]: 3.84 Aortic Valve AoV Pk [place]: 2.42 AoV Mn [place]: 1.67 AoV VTI: 0.59 AoV Pk Grad: 23.00 Aov Mn Grad: 13.00 JENNIFER Cont.VTI: 1.13 AI Pk [place]: 3.26 AI [place]: 1.23 LVOT LVOT Pk [place]: 0.81 LVOT Mn [place]: 0.57 LVOT VTI: 0.19 LVOT Pk Grad: 3.00 LVOT Mn Grad: 2.00 LVOT Diam: 2.10 LVOT Area: 3.46 Diastolic Function MV Pk E: 0.71 MV Pk A: 0.57 E/A: 1.20 E'Medial: 5.33 E/E' Med: 13.30 E' Laterial: 6.74 E/E' Lat: 10.50 Right Ventricle TAPSE (mm): 22.60 TVS' [place]: 13.70 Tricuspid Valve TR Pk [place]: 1.25 TR Pk Grad: 6.00 RA Press: 3.00 RVSP: 9.00 Great Vessels Aorta Sinus of Valsalva: 2.70 2.0-3.5 cm Ao Asc: 4.00 2.1-3.4 cm Ao Arch: 3.30 Pulmonary Veins Pulm Vein S/D 1.30 Pulmonary Valve PV Pk [place]: 1.15 Peak PV Grad: 5.00 Updated in Other Vendor System with Status of Final Myke Granda MD electronically signed on 08/25/2024 1:38:54 PM with status of Final
== END ==
LOC: HO.CARD 08:41
PROVIDERS: PCP Internal Medicine; Visit Provider Internal Medicine
DX: I35.9 Nonrheumatic aortic valve disorder, unspecified (principal)
CPT/HCPCS: 93306

== ENCOUNTER → 2024-08-24 08:47 | Outpatient (BNV) | payer MEDICARE, SELFPAY | PROVIDERS: PCP Internal Medicine; Visit Provider Internal Medicine Cardiovascular Disease | DX: I35.2 Nonrheumatic aortic (valve) stenosis with insufficiency (principal); I35.8 Other nonrheumatic aortic valve disorders; I51.89 Other ill-defined heart diseases | CPT/HCPCS: 93306 ==

== ENCOUNTER 2025-03-29 15:43 | Outpatient (REF) | payer MEDICARE, SELFPAY ==
--- OUTSIDE RECORDS SUMMARY | 2025-03-29 15:46 | XMS_ITS | Patient Health Record ---
Author Organization Jesus Malave MD Address [address] [place], [place] [id number] Care Team Providers Care Eyeglass Assembler Name Role Phone Jesus Malave Primary Care Provider Allergies No Known Allergies Results Component Value Reference Range Notes Complete Blood Count Auto Di ff Reviewed date:07/26/2024 12:23:24 PM Interpretation: Performing Lab:[facility], [address] [place] [phone] Notes/Report: White Blood Count 4.4 4.8-10.8 X10*3/uL Red Blood Count 4.57 4.20-5.50 X10*6/uL Hemoglobin 14.1 12.0-16.0 g/dl Hematocrit 41.7 37.0-47.0 % Mean Corpuscular Volume 91.2 80.0-98.0 fL Mean Corpuscular Hemoglobin 30.9 27.0-33.0 pg Mean Corpuscular HGB Conc 33.8 31.0-35.0 g/dl Red Cell Distribution Width 13.4 11.0-16.0 % Platelet Count 261 160-400 X10*3/uL Mean Platelet Volume 9.4 9.4-12.3 fL Neutrophils Percent Auto 50.5 45-73 % Imm Gran Pct Auto 0.5 0.0-0.4 % Lymphocytes Percent Auto 35.4 20-40 % Monocytes Percent Auto 6.9 2-11 % Eosinophils Percent Auto 5.3 0-4 % Basophils Percent Auto 1.4 0-2 % NRBC Pct Auto 0.0 0.0-0.2 /100WBC Neutrophils Absolute Auto 2.2 2.0-8.3 x10*3/u L Imm Gran Abs Auto 0.02 0.00-0.03 X10*3/uL Lymphocytes Absolute Auto 1.5 1.2-4.9 X10*3/u L Monocytes Absolute Auto 0.3 0.1-1.2 X10*3/uL Eosinophils Absolute Auto 0.2 0.0-0.4 X10*3/u L Basophils Absolute Auto 0.1 0.0-0.2 X10*3/uL NRBC Abs Auto 0.000 0.0-0.012 X10*3/uL Comprehensive [place]. Panel Fa st Reviewed date:07/26/2024 12:25:21 PM Interpretation: Performing Lab:[facility], [address] [place] [phone] Notes/Report: Sodium 142 135-145 mmol/L Potassium 3.9 3.3-5.1 mmol/L Chloride 107 96-108 mmol/L Carbon Dioxide 29 22-29 mmol/L Anion Gap 10 12-20 Blood Urea Nitrogen 18 9-16 mg/dL Creatinine 0.88 0.5-1.4 mg/dL Estimated Glomerular Filt Rate > 60 Chronic Kidney Disease: Estimated GFR < 60 mL/min/1.73m2 Severe Kidney Disease: Estimated GFR < 15 mL/min/1.73m2 Glucose Fasting 92 60-99 mg/dL Calcium 9.0 8.4-10.2 mg/dL Bilirubin Total 0.7 0.0-1.0 mg/dL Aspartate Amino Transferase 23 5-31 U/L Alanine Aminotransferase 14 0-31 U/L Total Protein 6.9 6.5-8.0 g/dL Albumin Level 4.1 3.5-5.0 g/dL Alkaline Phosphatase 58 39-117 U/L Lipid Panel Reviewed date:07/26/2024 12:17:17 PM Interpretation: Performing Lab:[facility], [address] [place] [phone] Notes/Report: Triglycerides 50 <150 mg/dL Desirable Triglyceride: less than 150 mg/dL Borderline High Triglyceride 150-199 mg/dL High Triglyceride: 200-499 mg/dL Very High Triglyceride: greater than or equal to 5OO mg/dL Cholesterol 176 <200 mg/dL Desirable Cholesterol: less than 200 mg/dL Borderline High Cholesterol: 200-239 mg/dL High Cholesterol: greater than 239 mg/dL LDL Cholesterol Calculated 99 <100 mg/dL Desirable LDL: less than 100 mg/dL Near Optimal/Above Optimal LDL: 110-129 mg/dL Borderline High LDL: 130-159 mg/dL High LDL: 160-189 mg/dL Very High LDL: greater than or equal to 190 mg/dL HDL Cholesterol 67 >40 mg/dL Desirable HDL: greater than 40 mg/dL Note: This HDL assay may give artificially low results in patients with liver disease. UA ClnCatch+Micro w/rflx Cul t Reviewed date:07/26/2024 12:25:03 PM Interpretation: Performing Lab:[facility], [address] [place] [phone] Notes/Report: Urine, Clean Catch Color Urine Yellow Appearance Urine Cloudy PH 6.0 5.0-9.0 Glucose Urine UA Negative Negative mg/dL Urine Blood Negative Negative Specific [place] - Urine 1.020 1.005-1.025 Urine Protein Negative Neg-Trace mg/dL Urine Ketones Negative Negative mg/dL Nitrite Urine Negative Negative Leukocyte Esterase Urine Moderate (2+) Negative RBC Urine 0-2 0-2 /HPF WBC Urine 0-5 0-5 /HPF Squamous Epithelial Cell Urine 3-5 0-2 /HPF Bacteria Urine 1+ None Seen Hyaline Casts Urine 0-2 0-2 /LPF Hold Gold Reviewed date:07/26/2024 12:16:59 PM Interpretation: Performing Lab:[facility], [address] [place] [phone] Notes/Report: Hold Gold See Note Specimen held untested for 24 hours; Call to request Chemistry testing. Urine Culture Reviewed date:07/27/2024 04:37:35 PM Interpretation: Performing Lab:[facility], [address] [place] [address], [place] [phone] Notes/Report: Urine Culture No growth. Reason For Referral No Information Medications Medication SIG (Take, Route, Frequency, Duration) Notes Start Date End Date Status Estradiol 0.5 MG 1 tablet Orally Once a day for 90 days Active Fiber - as directed Orally N ot-Taking ProAir HFA 108 (90 Base) MCG/ACT 2 puffs as needed Inhalation every 6 hrs for 30 days 11/22/2018 Not-Taking Omeprazole 20 MG 1 capsule 1/2 to 1 hour before morning meal Orally Once a day for 30 days 03/29/2025 Active Aspir-81 81 MG 1 tablet Orally Once a day for 30 day(s) Active Ambien 5 MG 1 tablet at bedtime Orally Once a day for 14 days 06/25/2022 Not-Taking Vitamin D (Cholecalciferol) 50 MCG (2000 UT) 2 capsules Orally Once a day Active Zolpidem Tartrate 10 MG 1 tablet at bedt maxime as needed Orally Once a day as needed 05/29/2018 Not-Taking dexAMETHasone 4 MG 1 tablet Orally 3 times a day for 10 days 03/14/2025 Not-Taking HYDROcodone-Acetaminophen 5-325 MG 1 tablet as needed Orally every 6 hrs as needed for 30 days 08/17/2022 Not-Taking medroxyPROGESTERone Acetate 2.5 MG TAKE ONE [...] dental work for 1 days 04/07/2021 Active Immunizations Vaccine Route Administration Date Status Comme nts Tetanus Unknown 02/17/2011 Administered Flu Vaccine IM Intramuscular 04/26/2011 Administered TDaP IM Intramuscular 11/08/2011 Administered Flu Vaccine IM Intramuscular 04/04/2012 Administered Flu Vaccine IM Intramuscular 07/09/2013 Administered PPSV23 (Pnemovax) IM Intramuscular 03/15/2014 Administered Fluarix Quadrivalent IM Intramuscular 04/23/2014 Administe red Fluarix Quadrivalent IM Intramuscular 04/28/2015 Administe red Fluarix Quadrivalent IM Intramuscular 04/19/2016 Administe red Shingles IM Intramuscular 04/26/2016 Administered Fluarix Quadrivalent IM Intramuscular 05/30/2017 Administe red Prevnar 13 IM Intramuscular 06/13/2017 Administered Shingrix IM Intramuscular 01/09/2018 Administered Shingrix IM Intramuscular 04/17/2018 Administered Fluarix Quadrivalent IM Intramuscular 04/20/2018 Administe red Fluarix Quadrivalent IM Intramuscular 06/26/2019 Administe red PPSV23 (Pnemovax) IM Intramuscular 10/08/2019 Administered Influenza High Dose IM Intramuscular 04/10/2020 Administer ed Covid Vaccine Unknown 08/05/2020 Administered [facility] Covid Vaccine Unknown 08/27/2020 Administered [facility] Influenza High Dose IM Intramuscular 06/12/2021 Administer ed Influenza High Dose IM Intramuscular 05/27/2022 Administer ed SARS-COV-2 Moderna Unknown 06/20/2021 Administered Influenza High Dose IM Intramuscular 06/23/2023 Administer ed Social History Tobacco Use: Social History Observation Description Date Details (start date - stop date) Never Smoker NA - NA Tobacco Use/Smoking Question Answer Notes Patient is a nonsmoker Additional Findings: Tobacco Non-User Cu rrent non-smoker, currently using no form of tobacco Alcohol Screen Question Answer Notes Did you have a drink containing alcohol in the p ast year? No Points 0 Interpretation Negative Problems Problem Type SNOMED Code ICD Code Onset Dates Problem Status W/U Status Risk Notes Problem 8345460 Primary insomnia (F51.01) Active confirmed Problem 391263097 Other specified menopausal and perimenopausal disorders (N95.8) Active confirmed Problem 6256965 Aortic valve dis order (I35.9) Active confirmed Problem 710669100 Nonrheumatic aor tic valve stenosis (I35.0) Active confirmed Problem 132361309 Raynauds phenome non without gangrene (I73.00) Active confirmed Problem 20550684 Heart murmur (R01.1) Active confirmed Problem 401921899 Acquired spondylolisthesis (M43.10) Active confirmed Problem 71844542 Degeneration of lumbar or lumbosacral intervertebral disc (M51.37) Active confirmed Problem Loss of balance (568977793) Loss of balance (R26.89) Active confirmed Problem 98997887 Aortic ectasia, thoracic (I77.810) Active confirmed Problem 46989870 Spinal 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) Active confirmed Vital Signs Blood pressure diastolic 76 mm Hg 03/29/2025 manfred ght is up 8 pounds since 08-03-24 Height 62.25 in 03/29/2025 weight is up 8 pounds since 08-03-24 Blood pressure systolic 144 mm Hg 03/29/2025 weig ht is up 8 pounds since 08-03-24 Weight 203 lbs 03/29/2025 weight is up 8 pounds since 08-03-24 BMI 36.83 kg/m2 03/29/2025 weight is up 8 pounds since 08-03-24 Encounters Encounter Location Date Provider Diagnosis Jesus Malave MD [address] [place] [id number] 07/26/2024 Jesus Malave Blood tests for routine general physical examination Z00.00 Jesus Malave MD [address] [place] [id number] 03/29/2025 Jesus Malave Loss of balance R26. 89 and Heartburn R12 Jesus Malave MD [address] [place] [id number] 07/23/2024 Jesus Malave Bronchitis J40 Jesus Malave MD [address] [place] [id number] 08/03/2024 Jesus Malave Nonrheumatic aortic valve stenosis I35.0 ; Annual physical exam Z00.00 ; Degeneration of lumbar or lumbosacral intervertebral disc M51.37 and Depression screening Z13.31 Jesus Malave MD [address] [place] [id number] 06/28/2024 Jesus Malave MD [address] [place] [id number] 07/24/2024 Jesus Malave MD [address] [place] [id number] 09/04/2024 Jesus Malave MD [address] [place] [id number] 03/14/2025 Jesus Malave Assessments Encounter Date Diagnosis (ICD Code) Assessment Notes Treatment Notes Treatment Clinical Notes Section Notes 07/26/2024 Blood tests for routine general physical examination (ICD-10 - Z00.00) 03/29/2025 Loss of balance (ICD-10 - R26.89) 03/29/2025 Heartburn (ICD-10 - R12) 07/23/2024 Bronchitis (ICD-10 - J40) patient verbalized understanding of medication and directions for use 08/03/2024 Nonrheumatic aortic valve stenosis (ICD-10 - I35.0) 08/03/2024 Annual physical exam (ICD-10 - Z00.00) labs reviewed and discused with patient 08/03/2024 Degeneration of lumbar or lumbosacral intervertebral disc (ICD-10 - M51.37) 08/03/2024 Depression screening (ICD-10 - Z13.31) negative screen Plan Of Treatment Pending Test Test Name Order Date MRI BRAIN NO CONTRAST 03/29/2025 MRI LUMBAR SPINE NO CONTRAST 08/17/2022 ECHO 06/19/2021 ECHO 06/25/2022 CTA CHEST FOR PE 07/16/2022 Complete Blood Count Auto Diff 5 Comprehensive [place]. Panel Fast 5 TSH reflex Free T4 03/29/2025 CA stress test 07/19/2022 CA echo transthoracic complete 3 CA echo transthoracic complete 4 Next Appt Details Provider Name:Jesus Monzon ier, 07/02/2025 08:00:00 AM, [address] [place] [address], [address], [phone], Provider Name:Jesus Monzon ier, 07/11/2025 07:30:00 AM, [address] [place] [address], [place] [address], [place], [place], [phone], Insurance Providers Payer Name Payer Address Payer Phone Subscriber Number Group Number Insured Name Patient Relationship to Insured Coverage Start Date Coverage End Date [employer] E [address] NESSA BEJARANO [id number] Becky Rios Self - patient is the insured MEDICARE [employer] [address] [place] [address] [id number] Gabriel, Becky Self - patient is the insured Medical (General) History Medical History History ICD Code 06/14/12 - Colonoscopy (repeat 10 yrs) 06/18/21 Mammo with additional view Surgical History Surgery Date(Month/Year) L-4 L-5 trans-facet foraminal decompress ion by Dr. Canales 02/2017
--- OUTSIDE RECORDS SUMMARY | 2025-03-29 15:46 | XMS_ITS | Patient Health Record ---
Author Organization [facility] Address [address] [place] [address] Care Team Providers Care Receptionist Doctor'S Office Name Role Phone Jesus Malave MD Primary Care Provider Ar Mercado Unavailable [phone] Reason For Referral No Information Medications Medication SIG (Take, Route, Frequency, Duration) Notes Start Date End Date Status Aspirin 81 MG Orally Active Prempro Active CeleBREX Active Problems Problem Type SNOMED Code ICD Code Onset Dates Problem Status W/U Status Risk Notes Problem Disorder of joint of ankle and/or foot (871863526) Arthritis - Degenerative (719.97) Active confirmed Problem Plantar fasciitis (029400448) Plantar Fasciitis (728.71) Active confirmed Problem Pain in limb (46573419) Pain in Limb (729.5) Active confirmed Problem Stress fracture (42639933) Stress fx (733.94) Active confirmed Plan Of Treatment No Information Insurance Providers Payer Name Payer Address Payer Phone Subscriber Number Group Number Insured Name Patient Relationship to Insured Coverage Start Date Coverage End Date [employer] [address] [place] [address] [id number] Becky Rios Self - patient is the insured Medical (General) History Medical History History ICD Code Raynauds syndrome Chicken pox Mumps Surgical History Surgery Date(Month/Year) section ,
[2025-03-29 15:47] LABS: MANUAL DIFF FLAG NO
[2025-03-29 15:51] LABS: Hematocrit 39.4 % (37.0-47.0); Hemoglobin 13.3 g/dl (12.0-16.0); Imm Gran Abs Auto 0.04 X10*3/uL (0.00-0.03); Imm Gran Pct Auto 0.5 % (0.0-0.4); Lymphocytes Absolute Auto 1.4 X10*3/uL (1.2-4.9); Mean Corpuscular HGB Conc 33.8 g/dl (31.0-35.0); Mean Corpuscular Hemoglobin 30.9 pg (27.0-33.0); Mean Corpuscular Volume 91.6 fL (80.0-98.0); NRBC Abs Auto 0.000 X10*3/uL (0.0-0.012); NRBC Pct Auto 0.0 /100WBC (0.0-0.2); Platelet Count 193 X10*3/uL (160-400); Red Blood Count 4.30 X10*6/uL (4.20-5.50); White Blood Count 7.4 X10*3/uL (4.8-10.8)
[2025-03-29 16:19] LABS: Alanine Aminotransferase 16 U/L (0-31); Albumin Level 3.6 g/dL (3.5-5.0); Alkaline Phosphatase 55 U/L (39-117); Anion Gap 10 (12-20); Aspartate Amino Transferase 24 U/L (5-31); Blood Urea Nitrogen 21 mg/dL (9-16); Calcium 8.3 mg/dL (8.4-10.2); Carbon Dioxide 28 mmol/L (22-29); Chloride 106 mmol/L (96-108); Estimated Glomerular Filt Rate > 60; Potassium 4.0 mmol/L (3.3-5.1); Sodium 140 mmol/L (135-145); Total Protein 5.8 g/dL (6.5-8.0)
== END 2025-03-29 15:44 | disposition home or self-care (01) ==
LOC: HO.LNP 15:43
PROVIDERS: Visit Provider Internal Medicine
DX: Z13.29 Encounter for screening for other suspected endocrine disorder (principal); R26.89 Other abnormalities of gait and mobility
CPT/HCPCS: 80053; 84443; 85025

== ENCOUNTER 2025-05-22 12:12 | Outpatient (AMB) | payer MEDICARE, SELFPAY ==
--- OUTSIDE RECORDS SUMMARY | 2025-03-14 10:24 | XMS_ITS ---
Author Organization Jesus Malave MD Address [address] [place] [phone] Care Team Providers Care Harness Worker Name Role Phone Jesus Malave Primary Care Provider REASON FOR VISIT Dexamethazone Medications Medication SIG (Take, Route, Fr equency, Duration) Notes Start Date End Date Status dexAMETHasone 4 MG 1 tablet Orally 3 ti mes a day for 10 days 03/14/2025 Active Encounters Encounter Location Date Provider Diagnosis Jesus Malave MD [address] [facility] [address] [place] [phone] 03/14/2025 Jesus Malave Plan Of Treatment Medication Medication Name Sig Start Date Stop Date Notes dexAMETHasone 4 MG 1 tablet Orally 3 ti mes a day for 10 days 03/14/2025 Next Appt Details Provider Name:Jesus burkett, 05/30/2025 07:30:00 AM, [address] [facility], [address], [place], [place], [phone], Provider Name:Jesus burkett, 06/13/2025 07:45:00 AM, [address], [address], [place], [place], [phone], Provider Name:Jesus Monzon ier, 07/02/2025 08:00:00 AM, [address] [facility], [address], [place], [phone], Provider Name:Jesus Monzon ier, 07/11/2025 07:30:00 AM, [address] [facility], [address], [place], [phone], Progress Notes * Becky DIAZ RDOB:11/1954 (70 yo F)Acc No.[id number]:03/14/2025 Patient: Ting SLATERbhavna Hwang :1955 A ge:70 Y S ex:Female Address:[address] [place] [address] * Refills Start dexAMETHasone Tablet, 4 MG, Orally, 30 Tablet, 1 tablet, 3 times a day, 10 days, Refills=1 * true * Date: Generated for Vandana mendoza/Stella/Philipitting on: 03:31 PM EDT
--- OUTSIDE RECORDS SUMMARY | 2025-03-29 10:30 | XMS_ITS ---
Author Organization Jesus Malave MD Address [address] [place], [place] [phone] Care Team Providers Care Cement Rubber Name Role Phone Jesus Malave Primary Care Provider Allergies No Known Allergies Results Component Value Reference Range Notes Complete Blood Count Auto Di ff Reviewed date:03/29/2025 04:04:52 PM Interpretation: Performing Lab:[facility], [address] [place] [phone] Notes/Report: White Blood Count 7.4 4.8-10.8 X10*3/uL [...] NRBC Abs Auto 0.000 0.0-0.012 X10*3/uL Comprehensive [place]. Panel Fa st Reviewed date:03/31/2025 03:19:55 PM Interpretation: Performing Lab:[facility], [address] [place] [phone] Notes/Report: Sodium 140 135-145 mmol/L Potassium 4.0 [...] T4 Reviewed date:03/31/2025 03:19:34 PM Interpretation: Performing Lab:[facility], [address] [place] [phone] Notes/Report: TSH reflex Free T4 3.45 0.32-4.0 [...] Status Risk Notes Problem Loss of balance ([id number]) Loss of balance (R26.89) Active confirmed Vital Signs Blood pressure systolic 144 mm Hg 03/29/20 25 Blood pressure diastolic 76 mm Hg 025 Height 62.25 in 03/29/2025 Weight 203 lbs 03/29/2025 BMI 36.83 kg/m2 03/29/2025 weight is up 8 pounds since 08-03-24 Encounters Encounter Location Date Provider Diagnosis Jesus Malave MD [address] [place] [phone] 03/29/2025 Jesus Malave Loss of balance R26.89 [...] Up: 2 Weeks, Reason: Provider Name:Jesus burkett, 05/30/2025 07:30:00 AM, [address] [place] [address], [address], [phone], Provider Name:Jesus burkett, 06/13/2025 07:45:00 AM, [address] [place] [address], [phone], Provider Name:Jesus burkett, 07/02/2025 08:00:00 AM, [address] [place] [address], [phone], Provider Name:Jesus burkett, 07/11/2025 07:30:00 AM, [address] [place] [address], [phone], Progress Notes * Becky DIAZ RDOB:11/1954 (70 yo F)Acc No.[id number]:03/29/2025 Progress Notes Patient: Dario Becky GRAMAJO Provider: Lico Malave MD :1955 A ge:70 Y S ex:Female Date:03/29/2025 Address:[address] [place] [address] Subjective: * Chief Complaints: * F atigue [...] Medications: T akingVitamin D (Cholecalciferol) 50 MCG (1999 UT) Capsule 2 capsules Orally Once a [...] MD Date: 0 03/29/2025 Generated for Vandana mendoza/Stella/Philipitting on: 1 03:30 PM EDT History and Physical Notes * HPI (History [...]
--- OUTSIDE RECORDS SUMMARY | 2025-04-19 04:30 | XMS_ITS ---
Author Organization Jesus Malave MD Address [address] [place], [place] [phone] Care Team Providers Care Pasta Maker Name Role Phone Jesus Malave Primary Care Provider Allergies No Known Allergies REASON FOR VISIT [...] Location Date Provider Diagnosis Jesus Malave MD [address] [place] [address] Drive [address] [place], [place] [phone] 04/19/2025 Jesus Malave Heart murmur R01.1 and [...] Up: 4 Weeks, Reason: Provider Name:Jesus burkett, 05/30/2025 07:30:00 AM, [address] [place] [address], [address], [place], [place], [phone], Provider Name:Jesus burkett, 06/13/2025 07:45:00 AM, [address], [address], [place], [place], [phone], Provider Name:Jesus Monzon ier, 07/02/2025 08:00:00 AM, [address], [address], [place], [place], [phone], Provider Name:Jesus Monzon ier, 07/11/2025 07:30:00 AM, [address], [address], [place], [place], [phone], Progress Notes * Becky DIAZ RDOB:11/1954 (70 yo F)Acc No.[id number]:04/19/2025 Progress Notes Patient: Becky SLATER Provider: Lico Malave MD :1955 A ge:70 Y S ex:Female Date:04/19/2025 Address:[address] [place], [place] [id number] Subjective: * Chief Complaints: * 2 week [...] 04/19/2025 Generated for Vandana mendoza/Stella/Philipitting on: 1 03:31 PM EDT History and Physical Notes * [...]
--- OUTSIDE RECORDS SUMMARY | 2025-04-23 04:07 | XMS_ITS ---
Author Organization Jesus Malave MD Address [address] [place] [phone] Care Team Providers Care Loan Services Professional Name Role Phone Jesus Malave Primary Care Provider REASON FOR VISIT RF Amoxicillin Medications Medication SIG (Take, Route, Fr equency, Duration) Notes Start Date End Date Status Amoxicillin 500 MG 2 capsules Orally 1 hour before dental work for 1 days 04/07/2021 Active Encounters Encounter Location Date Provider Diagnosis Jesus Malave MD 10 [facility] [address] [place] [phone] 04/23/2025 Jesus Malave Plan Of Treatment Medication Medication Name Sig Start Date Stop Date Notes Amoxicillin 500 MG 2 capsules Orally 1 hour before dental work for 1 days 04/07/2021 Next Appt Details Provider Name:Jesus burkett, 05/30/2025 07:30:00 AM, [address] [facility], [address], [place], [place], [phone], Provider Name:Jesus burkett, 06/13/2025 07:45:00 AM, [address] [facility], [address], [place], [place], [phone], Provider Name:Jesus Monzon ier, 07/02/2025 08:00:00 AM, [address] [facility], [address], [place], [place], [phone], Provider Name:Jesus Monzon ier, 07/11/2025 07:30:00 AM, [address] [facility], [address], [place], [place], [phone], Progress Notes * Becky DIAZ RDOB:11/1954 (70 yo F)Acc No.[id number]:04/23/2025 Patient: Dario ROX, Becky Hwang :1955 A ge:70 Y S ex:Female Address:[address] [place] [address] * Refills Refill Amoxicillin Capsule, 500 MG, Orally, 4 Capsule, 2 capsules, 1 hour before dental work, 1 days, Refills=1 * true * Date: Generated for Vandana mendoza/Setlla/Abdiazizsmitting on: 03:29 PM EDT
--- OUTSIDE RECORDS SUMMARY | 2025-05-21 04:15 | XMS_ITS ---
Author Organization Jesus Malave MD Address [address] [place], [place] [phone] Care Team Providers Care Can Striper Name Role Phone Jesus Malave Primary Care Provider [phone] Allergies No Known Allergies Reason For Referral Reason shortness of breath Diagnosis 1 Shortness of breath (R06.02) Referral Organization Jesus Malave MD Referring Provider First Name Jesus Referring Provider Last Name Frieda Referring Provider Speciality Internal M edicine Referred Provider KENY GUNTER Referred Provider Specialty Cardiology General Notes Libra Portillo 1 08:48:28 AM >patient is aware of appt Referral Priority Routine Referral Appointment Date 05/22/2025 [...] kg/m2 05/21/2025 weight is down 2 pounds [facility] 04-19-25 Encounters Encounter Location Date Provider Diagnosis Jesus Malave MD [address] [place] [address] [place] [phone] 05/21/2025 Jesus Malave Heartburn R12 and Shortness [...] 3 Weeks, Reason: Provider Name:Jesus Monzon ier, 05/30/2025 07:30:00 AM, [address] [place] [address], [address], [phone], Provider Name:Jesus Monzon ier, 06/13/2025 07:45:00 AM, [address] [place] [address], [address], [phone], Provider Name:Jesus Monzon ier, 07/02/2025 08:00:00 AM, [address] [place] [address], [address], [phone], Provider Name:Jesus Monzon ier, 07/11/2025 07:30:00 AM, [address] [place] [address], [address], [phone], Progress Notes * Becky DIAZ RDOB:11/1954 (70 yo F)Acc No.[id number]:05/21/2025 Progress Notes Patient: Becky SLATER Provider: Lico Malave MD :1955 A ge:70 Y S ex:Female Date:05/21/2025 Address:[address] [place], [place] [phone] Subjective: * Chief Complaints: * 1 . Breathing problems. * HPI: S ymptom(s): patient is a [...] D enies N ausea. * Medical History: 1 08/14/11 - Colonoscopy (repeat 10 yrs), 06/18/21 Mammo with additional view. * Medications: T aking Vitamin D (Cholecalciferol) 50 MCG (2000 UT) Capsule 2 capsules Orally Once a day , Taking Aspir-81 81 MG Tablet Delayed Release 1 tablet Orally Once a day , Taking Estradiol 0.5 MG Tablet 1 tablet Orally Once a day , Taking Albuterol Sulfate HFA 108 (90 Base) MCG/ACT Aerosol Solution 1 puff as needed Inhalation every 4 hrs , Taking medroxyPROGESTERone Acetate 2.5 MG Tablet TAKE ONE TABLET BY MOUTH EVERY DAY WITH FOOD , Taking Celecoxib 200 MG Capsule TAKE ONE CAPSULE BY MOUTH EVERY DAY WITH FOOD , Taking Omeprazole 20 MG Capsule Delayed Release 1 capsule 1/2 to 1 hour before morning meal Orally Once a day , Taking Amoxicillin 500 MG Capsule 2 capsules Orally 1 hour before dental work , Not-Taking/PRN Fiber - Tablet as directed Orally , Not-Taking/PRN dexAMETHasone 4 MG Tablet 1 tablet Orally 3 times a day , Not-Taking/PRN HYDROcodone-Acetaminophen 5-325 MG Tablet 1 tablet as needed Orally every 6 hrs as needed , Not-Taking/PRN Ambien 5 MG Tablet 1 tablet at bedtime Orally Once a day , Not-Taking/PRN Zolpidem Tartrate 10 MG Tablet 1 tablet at bedtime as needed Orally Once a day as needed , Not-Taking/PRN ProAir HFA 108 (90 Base) MCG/ACT Aerosol Solution 2 puffs as needed Inhalation every 6 hrs , Medication List reviewed and reconciled with the patient * Allergies: N .K.D.A. Objective: * Vitals: H t: 62.25, Wt: 203, BMI:36.83, BP:132/76, Wt-k.08. weight is down 2 pounds since 9-12-25. * Examination: G eneral Examination: GENERAL APPEARANCE: [...] To:GIANNA GUNTER Cardiology Reason:shortness of breath * Follow Up: 3 Weeks * * The named appointment provid er may or may not be the originator of this progress note, and it is not deemed complete until electronically signed by the appointment provider. Sign off status: Pending * Provider: Lico Malave MD Date: Generated for Vandana mendoza/Stella/Philipitting on: 03:30 PM EDT History and Physical Notes * Examination Category Sub-Category Detail Notes Category Not es General Examination GENERAL APPEARANCE: alert, w ell hydrated, in no distress HEART: grade 3/6 systolic m urmur at left sternal border LUNGS: no wheezes, rales, r honchi, good air movement, clear to auscultation bilaterally SKIN: good turgor Consultation Request Notes Referral Date Referring Provider Referred Provider Not tiny 05/21/2025 Jesus Malave HARIHARAN s hortness of breath
--- NOTE | 2025-05-22 12:36 | MHC.OFFVIS ---
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 In the past, she was seen regarding bicuspid aortic valve. She used to be extremely active including playing tennis extra but has not done that recently. She has actually gained a lot of weight, almost 40 lb or so over the last year. After that, she is also feeling more short of breath. Any form of activity makes her short of breath. No anginal-type chest pains or jaw pain extra. No known coronary disease. [facility] Medical History Ascending aorta enlargement Bicuspid aortic valve Non-rheumatic aortic stenosis Family History Mother Heart problem Father Heart problem Social History Alcohol intake: never Patient Tobacco Use Status: Never used Tobacco Review of Systems Const Denies chills, Denies fatigue, Denies fever(s), Denies frequent falls, Denies weakness, Denies weight gain and Denies weight loss ENT Denies dizziness Card Denies chest pain, Denies leg edema, Denies lightheadedness, Denies palpitations, Denies dyspnea and Denies dyspnea on exertion Resp Denies cough, Denies dyspnea and Denies dyspnea on exertion GI Denies hematochezia Musc Denies abnormal gait, Denies muscle weakness, Denies numbness, Denies radiating pain into limb and Denies tingling Neuro Denies abnormal gait, Denies dizziness, Denies frequent falls, Denies numbness, Denies tingling and Denies weakness Endo Denies fatigue and Denies palpitations Physical Exam Vital Signs: Last Vital Signs Pulse 75 05/22/25 12:37 BP 120/72 05/22/25 12:37 BMI result Body Mass Index 36.8 Const General: comfortable and no acute distress Orientation/consciousness: patient oriented x3 HEENT Other: Unremarkable Head: Yes normal to inspection Neck Neck: Yes normal visual inspection Chest Chest palpation & inspection: normal inspection of the chest Resp Auscultation: clear to auscultation bilaterally Cardio Palpation: normal PMI Heart sounds: S1 normal heart sound present, S2 normal heart sound present, no gallops, no murmurs and no rubs GI Palpation (GI): Soft to palpation Back/Spine/Pelvis Other: unremarkable Skin General skin exam: no rashes or lesions noted Neuro General: patient oriented x3 Extrem General: Yes normal to inspection Psych Mental Status: mental status grossly normal Office Procedures EKG Details: EKG with underlying sinus rhythm at 75/Min; cannot exclude old anterior infarct more than likely from her weight gain in body habitus; [place]. [id number], Complete Assessment & Plan Assessment & Plan (1) Non-rheumatic aortic stenosis: Code(s): I35.0 - Nonrheumatic aortic (valve) stenosis Category: Medical (2) Bicuspid aortic valve: Code(s): Q23.1 - Congenital insufficiency of aortic valve Category: Medical (3) Ascending aorta enlargement: Code(s): I77.89 - Other specified disorders of arteries and arterioles Category: Medical Plan Cardiac testing reviewed. Last echocardiogram from 08/2024-LVEF 60-65%. [id number]-[id number] aortic stenosis. Ascending aortic size 4 cm. Not specifically describe it bicuspid aortic valve in this study, but known to be bicuspid in the past. In the stress test 2022, she was able to do 9.4 METS on Cl protocol; no angina or EKG findings of ischemia. Perfusion component was normal. Overall, strongly suspect that her shortness of breath is related to weight gain as she has gained almost 40 lb in weight. Hence main recommendation would be try to get back to her usual baseline weight over a period of time. If indeed she gets worse with new symptoms, angina extra, then we will need to pursue further workup. We discussed about this at length today. We will plan on repeat echocardiogram about an year from the last study. Follow up after that. Discussion Notes During the visit, we discussed the likelihood that the patient's symptoms are primarily due to weight gain, with a high probability. We agreed to order an echocardiogram to rule out any cardiac changes and to monitor the heart murmur. The patient was advised to focus on weight loss through diet and exercise, with a follow-up planned in six months to assess progress. Patient was informed and verbally consented to the use of an ambient scribe for clinic note documentation during this visit. Orders: Orders CA echo transthoracic complete 2 Months I35.0 - Nonrheumatic aortic (valve) stenosis Coding Level of Care Code Est Pt Level 4 (39989) Complex EM visit Add On G2211 Diagnoses Non-rheumatic aortic stenosis I35.0 Bicuspid aortic valve Q23.1 Ascending aorta enlargement I77.89 CPT Codes EKG - CPT: 43787-[id number], Complete ([id number])
[2025-05-22 12:37] VITALS: BP 120/72; PULSE 75; BMI 36.8
--- OUTSIDE RECORDS SUMMARY | 2025-05-22 15:30 | XMS_ITS | Patient Health Record ---
Author Organization Jesus Malave MD Address [address] [place], [place] [id number] Care Team Providers Care Pharmacognosy Teacher Name Role Phone Jesus Malave Primary Care Provider [phone] Allergies No Known Allergies Results Component Value Reference Range Notes Complete Blood Count Auto Di ff Reviewed date:07/26/2024 12:23:24 PM Interpretation: Performing Lab:[facility], [address] [place] [phone] Notes/Report: White Blood Count 4.4 4.8-10.8 X10*3/uL [...] NRBC Abs Auto 0.000 0.0-0.012 X10*3/uL Comprehensive Bay. Panel Fa st Reviewed date:07/26/2024 12:25:21 PM Interpretation: Performing Lab:[facility], [address] [place] [phone] Notes/Report: Sodium 142 135-145 mmol/L Potassium 3.9 [...] Panel Reviewed date:07/26/2024 12:17:17 PM Interpretation: Performing Lab:[facility], [address] [place] [phone] Notes/Report: Triglycerides 50 <150 mg/dL Desirable Triglyceride: [...] t Reviewed date:07/26/2024 12:25:03 PM Interpretation: Performing Lab:[facility], [address] [place] [phone] Notes/Report: Urine, Clean Catch Color Urine Yellow Appearance Urine Cloudy PH 6.0 5.0-9.0 Glucose Urine UA Negative Negative mg/dL Urine Blood Negative Negative Specific Webb - Urine 1.020 1.005-1.025 Urine Protein Negative Neg-Trace mg/dL Urine Ketones Negative Negative mg/dL Nitrite Urine Negative Negative Leukocyte Esterase Urine Moderate (2+) Negative RBC Urine 0-2 0-2 /HPF WBC Urine 0-5 0-5 /HPF Squamous Epithelial Cell Urine 3-5 0-2 /HPF Bacteria Urine 1+ None Seen Hyaline Casts Urine 0-2 0-2 /LPF Complete Blood Count Auto Di ff Reviewed date:03/29/2025 04:04:52 PM Interpretation: Performing Lab:[facility], [address] [place] [phone] Notes/Report: White Blood Count 7.4 4.8-10.8 X10*3/uL [...] NRBC Abs Auto 0.000 0.0-0.012 X10*3/uL Comprehensive Bay. Panel Fa st Reviewed date:03/31/2025 03:19:55 PM Interpretation: Performing Lab:[facility], [address] [place] [phone] Notes/Report: Sodium 140 135-145 mmol/L Potassium 4.0 [...] T4 Reviewed date:03/31/2025 03:19:34 PM Interpretation: Performing Lab:[facility], [address] [place] [phone] Notes/Report: TSH reflex Free T4 3.45 0.32-4.0 uIU/mL Caesar Madsen Reviewed date:07/26/2024 12:16:59 PM Interpretation: Performing Lab:[facility], [address] [place] [phone] Notes/Report: Caesar Madsen See Note Specimen held untested for 24 hours; Call to request Chemistry testing. Urine Culture Reviewed date:07/27/2024 04:37:35 PM Interpretation: Performing Lab:[facility], [address] [place] [phone] Notes/Report: Urine Culture No growth. Caesar Madsen Reviewed date:03/29/2025 04:03:58 PM Interpretation: Performing Lab:[facility], [address] [place] [phone] Notes/Report: Caesar Madsen See Note Specimen held untested for 24 hours; Call to request Chemistry testing. Reason For Referral Reason shortness of breath Diagnosis 1 Shortness of breath (R06.02) Referral Organization Jesus Malave MD Referring Provider First Name Jesus Referring Provider Last Name Frieda Referring Provider Speciality Internal M edicine Referred Provider KENY GUNTER Referred Provider Specialty Cardiology General Notes Libra Portillo 1 08:48:28 AM >patient is aware of appt Referral Priority Routine Referral Appointment Date 05/22/2025 Medications Medication SIG (Take, Route, Frequency, Duration) Notes Start Date End Date Status Albuterol Sulfate HFA 108 (9 0 Base) MCG/ACT 1 puff as needed Inhalation every 4 hrs for 30 days 07/04/2023 Active HYDROcodone-Acetaminophen 5-325 MG 1 tablet as needed Orally every 6 hrs as needed for 30 days 08/17/2022 Not-Taking Vitamin D (Cholecalciferol) 50 MCG (2000 UT) 2 capsules Orally Once a day Active Ambien 5 MG 1 tablet at bedtime Orally Once a day for 14 days 06/25/2022 Not-Taking Aspir-81 81 MG 1 tablet Orally Once a day for 30 day(s) Active Zolpidem Tartrate 10 MG 1 tablet at bedt maxime as needed Orally Once a day as needed 05/29/2018 Not-Taking Estradiol 0.5 MG 1 tablet Orally Once a day for 90 days Active ProAir HFA 108 (90 Base) MCG/ACT 2 puffs as needed Inhalation every 6 hrs for 30 days 11/22/2018 Not-Taking Amoxicillin 500 MG 2 capsules Orally 1 hour before dental work for 1 days 04/07/2021 Active Fiber - as directed Orally N ot-Taking dexAMETHasone 4 MG 1 tablet Orally 3 times a day for 10 days 03/14/2025 Not-Taking Omeprazole 20 MG 1 capsule 1/2 to 1 hour before morning meal Orally Once a day for 90 days 03/29/2025 Active medroxyPROGESTERone Acetate 2.5 MG TAKE ONE TABLET BY MOUTH EVERY DAY WITH FOOD for 90 Active Celecoxib 200 MG TAKE ONE CAPSULE BY MOUTH EVERY DAY WITH FOOD for 90 Active Immunizations Vaccine Route Administration Date Status [...] Problem Status W/U Status Risk Notes Problem 2924690 Primary insomnia (F51.01) Active confirmed Problem 513158500 Other specified menopausal and perimenopausal disorders (N95.8) Active confirmed Problem 6965534 Aortic valve dis order (I35.9) Active confirmed Problem 418976462 Nonrheumatic aor tic valve stenosis (I35.0) Active confirmed Problem 548335783 Raynauds phenome non without gangrene (I73.00) Active confirmed Problem 67099913 Heart murmur (R01.1) Active confirmed Problem 905708783 Acquired spondylolisthesis (M43.10) Active confirmed Problem 62769083 Degeneration of lumbar or lumbosacral intervertebral disc (M51.37) Active confirmed Problem Loss of balance (080246815) Loss of balance (R26.89) Active confirmed Problem 41242851 Aortic ectasia, thoracic (I77.810) Active confirmed Problem 41549957 Spinal 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) Active confirmed Vital Signs Blood pressure diastolic 76 mm Hg 05/21/2025 manfred ght is down 2 pounds since 04-19-25 Height 62.25 in 05/21/2025 weight is down 2 pounds since 9-12-25 Blood pressure systolic 132 mm Hg 05/21/2025 teofilo ht is down 2 pounds since 04-19-25 Weight 203 lbs 05/21/2025 weight is down 2 pounds since 04-19-25 BMI 36.83 kg/m2 05/21/2025 weight is down 2 pounds since 04-19-25 Encounters Encounter Location Date Provider Diagnosis Jesus Malave MD [address] [place] [id number] 07/26/2024 Jesus Malave Blood tests for routine general physical examination Z00.00 Jesus Malave MD [address] [place] [id number] 05/21/2025 Jesus Malave Heartburn R12 and Shortness of breath R06.02 Jesus Malave MD [address] [place] [address] [id number] 07/23/2024 Jesus Malave Bronchitis J40 Jesus Malave MD [address] [place] [address] [id number] 08/03/2024 Jesus Malave Nonrheumatic aortic valve stenosis I35.0 ; Annual physical exam Z00.00 ; Degeneration of lumbar or lumbosacral intervertebral disc M51.37 and Depression screening Z13.31 Jesus Malave MD [address] [place] [address] [id number] 03/29/2025 Jesus Malave Loss of balance R26. 89 and Heartburn R12 Jesus Malave MD [address] [place] [address] [id number] 04/19/2025 Jesus Malave Heart murmur R01.1 a nd Spinal stenosis of lumbar region without neurogenic claudication M48.061 Jesus Malave MD [address] [place] [address] [id number] 06/28/2024 Jesus Malave MD [address] [place] [address] [id number] 07/24/2024 Jesus Malave MD [address] [place] [address] [id number] 09/04/2024 Jesus Malave MD [address] [place] [address] [id number] 03/14/2025 Jesus Malave MD [address] [place] [address] Drive [address] [place], [place] [id number] 04/23/2025 Jesus Malave Assessments Encounter Date Diagnosis (ICD Code) Assessment Notes Treatment Notes Treatment Clinical Notes Section Notes 07/26/2024 Blood tests for routine general physical examination (ICD-10 - Z00.00) 05/21/2025 Heartburn (ICD-10 - R12) 05/21/2025 Shortness of breath (ICD-10 - R06.02) seems most likely cardiac. will refer to dr casas 07/23/2024 Bronchitis (ICD-10 - J40) patient verbalized understanding of medication and directions for use 08/03/2024 Nonrheumatic aortic valve stenosis (ICD-10 - I35.0) 08/03/2024 Annual physical exam (ICD-10 - Z00.00) labs reviewed and discused with patient 03/29/2025 Loss of balance (ICD-10 - R26.89) 03/29/2025 Heartburn (ICD-10 - R12) 04/19/2025 Heart murmur (ICD-10 - R01.1) not getting any worse 08/03/2024 Degeneration of lumbar or lumbosacral intervertebral disc (ICD-10 - M51.37) 04/19/2025 Spinal stenosis of lumbar region without neurogenic claudication (ICD-10 - M48.061) is stable so will encourage her to start exercising. 08/03/2024 Depression screening (ICD-10 - Z13.31) negative screen Plan Of Treatment Pending Test Test Name Order Date MRI BRAIN NO CONTRAST 03/29/2025 MRI LUMBAR SPINE NO CONTRAST 08/17/2022 ECHO 06/19/2021 ECHO 06/25/2022 CTA CHEST FOR PE 07/16/2022 CA stress test 07/19/2022 CA echo transthoracic complete 3 CA echo transthoracic complete 4 Next Appt Details Provider Name:Jesus burkett, 05/30/2025 07:30:00 AM, [address] [place] [address], [address], [place], [place], [phone], Provider Name:Jesus burkett, 06/13/2025 07:45:00 AM, [address] [facility], [address], [place], [place], [phone], Provider Name:Jesus Monzon ier, 07/02/2025 08:00:00 AM, [address] [facility], [address], [place], [phone], Provider Name:Jesus Monzon ier, 07/11/2025 07:30:00 AM, [address] [facility], [address], [place], [place], [phone], Insurance Providers Payer Name Payer Address Payer Phone Subscriber Number Group Number Insured Name Patient Relationship to Insured Coverage Start Date Coverage End Date [employer] E [address] [place], [place] [id number] Becky Rios Self - patient is the insured MEDICARE [address] [place] [address] [id number] Becky Rios Self - patient is the insured Medical (General) History Medical History History ICD Code 06/14/12 - Colonoscopy (repeat 10 yrs) 06/18/21 Mammo with additional view Surgical History Surgery Date(Month/Year) L-4 L-5 trans-facet foraminal decompress ion by Dr. Canales 02/2017
== END 2025-05-22 13:00 | disposition home or self-care (01) ==
LOC: HO.HCS 12:13
PROVIDERS: PCP Internal Medicine; Visit Provider Internal Medicine
DX: I35.0 Nonrheumatic aortic (valve) stenosis (principal); Q23.1 Congenital insufficiency of aortic valve; I77.89 Other specified disorders of arteries and arterioles
CPT/HCPCS: 93010; 99214; G2211

== ENCOUNTER → 2025-05-22 12:12 | Outpatient (BNVA) | payer MEDICARE, SELFPAY | PROVIDERS: PCP Internal Medicine; Visit Provider Internal Medicine | DX: I35.0 Nonrheumatic aortic (valve) stenosis (principal); Q23.1 Congenital insufficiency of aortic valve; I77.89 Other specified disorders of arteries and arterioles; R06.02 Shortness of breath; Z79.82 Long term (current) use of aspirin; Q23.81 Bicuspid aortic valve | CPT/HCPCS: 93005; 99212 ==

== ENCOUNTER 2025-07-02 10:53 | Outpatient (REF) | payer MEDICARE, SELFPAY ==
--- OUTSIDE RECORDS SUMMARY | 2024-09-04 06:26 | XMS_ITS ---
Author Organization eJsus Malave MD Address [address] [place] [phone] Care Team Providers Care Comber Operator Name Role Phone Jesus Malave Primary Care Provider REASON FOR VISIT Insurance issue Encounters Encounter Location Date Provider Diagnosis Jesus Malave MD [address] [place] [phone] 09/04/2024 Jesus Malave Plan Of Treatment Next Appt Details Provider Name:Jesus Monzon ier, 07/11/2025 07:30:00 AM, [address], Suite [facility], [place], [place], [phone], Progress Notes * Becky DIAZ RDOB:11/1954 (69 yo F)Acc No.[id number]:09/04/2024 Patient: Dario Becky GRAMAJO :1955 A ge:69 Y S ex:Female Address:[address] [place] [id number] * true * Date: Generated for Vandana mendoza/Stella/Nadja on: 09/01/2024 02:14 PM EST
--- OUTSIDE RECORDS SUMMARY | 2025-03-14 09:24 | XMS_ITS ---
Author Organization Jesus Malave MD Address [address] [place] [phone] Care Team Providers Care Infrastructure Technician Name Role Phone Jesus Malave Primary Care Provider REASON FOR VISIT Dexamethazone Medications Medication SIG (Take, Route, Fr equency, Duration) Notes Start Date End Date Status dexAMETHasone 4 MG 1 tablet Orally 3 ti mes a day for 10 days 03/14/2025 Active Encounters Encounter Location Date Provider Diagnosis Jesus Malave MD [address] [facility] [address] [place] [phone] 03/14/2025 Jesus Malave Plan Of Treatment Medication Medication Name Sig Start Date Stop Date Notes dexAMETHasone 4 MG 1 tablet Orally 3 ti mes a day for 10 days 03/14/2025 Next Appt Details Provider Name:Jesus ribeiror, 07/11/2025 07:30:00 AM, [address] [facility], [address], [place], [place], [phone], Progress Notes * Becky DIAZ RDOB:11/1954 (70 yo F)Acc No.[id number]:03/14/2025 Patient: Becky SLATER :1955 A ge:70 Y S ex:Female Address:[address] [place] [address] * Refills Start dexAMETHasone Tablet, 4 MG, Orally, 30 Tablet, 1 tablet, 3 times a day, 10 days, Refills=1 * true * Date: Generated for Vandana mendoza/Stella/Abdiazizsmitting on: 09/01/2024 02:14 PM EST
--- OUTSIDE RECORDS SUMMARY | 2025-03-29 09:30 | XMS_ITS ---
Author Organization Jesus Malave MD Address [address] [place], [place] [id number] Care Team Providers Care Film Laboratory Technician Name Role Phone Jesus Malave Primary Care Provider [phone] Allergies No Known Allergies Results Component Value Reference Range Notes Complete Blood Count Auto Di ff Reviewed date:03/29/2025 04:04:52 PM Interpretation: Performing Lab:[facility], [address] [place] [phone] Notes/Report: White Blood Count 7.4 4.8-10.8 X10*3/uL Red Blood Count 4.30 4.20-5.50 X10*6/uL Hemoglobin 13.3 12.0-16.0 g/dl Hematocrit 39.4 37.0-47.0 % Mean Corpuscular Volume 91.6 80.0-98.0 fL Mean Corpuscular Hemoglobin 30.9 27.0-33.0 pg Mean Corpuscular HGB Conc 33.8 31.0-35.0 g/dl Red Cell Distribution Width 14.8 11.0-16.0 % Platelet Count 193 160-400 X10*3/uL Mean Platelet Volume 8.9 9.4-12.3 fL Neutrophils Percent Auto 71.7 45-73 % Imm Gran Pct Auto 0.5 0.0-0.4 % Lymphocytes Percent Auto 19.3 20-40 % Monocytes Percent Auto 6.1 2-11 % Eosinophils Percent Auto 2.0 0-4 % Basophils Percent Auto 0.4 0-2 % NRBC Pct Auto 0.0 0.0-0.2 /100WBC Neutrophils Absolute Auto 5.3 2.0-8.3 x10*3/u L Imm Gran Abs Auto 0.04 0.00-0.03 X10*3/uL Lymphocytes Absolute Auto 1.4 1.2-4.9 X10*3/u L Monocytes Absolute Auto 0.5 0.1-1.2 X10*3/uL Eosinophils Absolute Auto 0.2 0.0-0.4 X10*3/u L Basophils Absolute Auto 0.0 0.0-0.2 X10*3/uL NRBC Abs Auto 0.000 0.0-0.012 X10*3/uL Comprehensive [place]. Panel Fa st Reviewed date:03/31/2025 03:19:55 PM Interpretation: Performing Lab:[facility], [address] [place] [phone] Notes/Report: Sodium 140 135-145 mmol/L Potassium 4.0 3.3-5.1 mmol/L Chloride 106 96-108 mmol/L Carbon Dioxide 28 22-29 mmol/L Anion Gap 10 12-20 Blood Urea Nitrogen 21 9-16 mg/dL Creatinine 0.90 0.5-1.4 mg/dL Estimated Glomerular Filt Rate > 60 Chronic Kidney Disease: Estimated GFR < 60 mL/min/1.73m2 Severe Kidney Disease: Estimated GFR < 15 mL/min/1.73m2 Glucose Fasting 96 60-99 mg/dL Calcium 8.3 8.4-10.2 mg/dL Bilirubin Total 0.4 0.0-1.0 mg/dL Aspartate Amino Transferase 24 5-31 U/L Alanine Aminotransferase 16 0-31 U/L Total Protein 5.8 6.5-8.0 g/dL Albumin Level 3.6 3.5-5.0 g/dL Alkaline Phosphatase 55 39-117 U/L TSH reflex Free T4 Reviewed date:03/31/2025 03:19:34 PM Interpretation: Performing Lab:[facility], [address] [place] [phone] Notes/Report: TSH reflex Free T4 3.45 0.32-4.0 uIU/mL REASON FOR VISIT fatigue bloating pressure goingup right side of head feels she is veering to the left when walking started 03-19-25 Medications Medication SIG (Take, Route, Frequency, Duration) Notes Start Date End Date Status ProAir HFA 108 (90 Base) MCG/ACT 2 puffs as needed Inhalation every 6 hrs for 30 days 11/22/2018 Not-Taking Omeprazole 20 MG 1 capsule 1/2 to 1 hour before morning meal Orally Once a day for 30 days 03/29/2025 Active Ambien 5 MG 1 tablet at bedtime Orally Once a day for 14 days 06/25/2022 Not-Taking Zolpidem Tartrate 10 MG 1 tablet at bedt maxime as needed Orally Once a day as needed 05/29/2018 Not-Taking HYDROcodone-Acetaminophen 5-325 MG 1 tablet as needed Orally every 6 hrs as needed for 30 days 08/17/2022 Not-Taking dexAMETHasone 4 MG 1 tablet Orally 3 times a day for 10 days 03/14/2025 Not-Taking medroxyPROGESTERone Acetate 2.5 MG TAKE ONE TABLET BY MOUTH EVERY DAY WITH FOOD for 90 Active Celecoxib 200 MG TAKE ONE CAPSULE BY MOUTH EVERY DAY WITH FOOD for 90 Active Albuterol Sulfate HFA 108 (9 0 Base) MCG/ACT 1 puff as needed Inhalation every 4 hrs for 30 days 07/04/2023 Active Amoxicillin 500 MG 2 capsules Orally 1 hour before dental work for 1 days 04/07/2021 Active Estradiol 0.5 MG 1 tablet Orally Once a day for 90 days Active Fiber - as directed Orally N ot-Taking Aspir-81 81 MG 1 tablet Orally Once a day for 30 day(s) Active Vitamin D (Cholecalciferol) 50 MCG (2000 UT) 2 capsules Orally Once a day Active Problems Problem Type SNOMED Code ICD Code Onset Dates Problem Status W/U Status Risk Notes Problem Loss of balance (850169957) Loss of balance (R26.89) Active confirmed Vital Signs Blood pressure systolic 144 mm Hg 03/29/20 25 Blood pressure diastolic 76 mm Hg 025 Height 62.25 in 03/29/2025 Weight 203 lbs 03/29/2025 BMI 36.83 kg/m2 03/29/2025 weight is up 8 pounds since 08-03-24 Encounters Encounter Location Date Provider Diagnosis Jesus Malave MD [address] [place] [phone] 03/29/2025 Jesus Malave Loss of balance R26.89 and Heartburn R12 Assessments Encounter Date Diagnosis (ICD Code) Assessment Notes Treatment Notes Treatment Clinical Notes Section Notes 03/29/2025 Loss of balance (ICD-10 - R26.89) 03/29/2025 Heartburn (ICD-10 - R12) Plan Of Treatment Medication Medication Name Sig Start Date Stop Date Notes Omeprazole 20 MG 1 capsule 1/2 to 1 h our before morning meal Orally Once a day for 30 days 03/29/2025 Pending Test Test Name Order Date MRI BRAIN NO CONTRAST 03/29/2025 Next Appt Details Follow Up: 2 Weeks, Reason: Provider Name:Jesus Monzon ier, 07/11/2025 07:30:00 AM, [address], [address], [place], [place], [phone], Progress Notes * Becky DIAZ RDOB:11/1954 (70 yo F)Acc No.[id number]:03/29/2025 Progress Notes Patient: Becky SLATER Provider: Lico Malave MD :1955 A ge:70 Y S ex:Female Date:03/29/2025 Address:[address] [place], [place] [id number] Subjective: * Chief Complaints: * F atigue bloating pressure goingup right side of head feels she is veering to the left when walking started 03-19-25 * HPI: S ymptom(s): patient is a 70 yo female here for complaint of fatigue and bloating/ not feeling well..headache on back of head. all started after the dexamethasone. balance is way off and stomach is bloated. off dexamthasone. having trouble with balance. has to hold onto things when walking in condo. * ROS: G eneral/Constitutional: Denies C hills. A dmits F atigue. D enies F ever. D enies H eadache. E NT: Denies S ore throat. R espiratory: Denies C ough. A dmits S hortness of breath with exertion. G astrointestinal: bloating a dmits. D enies A bdominal pain. D enies C hange in bowel habits. D enies C onstipation. D enies D iarrhea. A dmits N ausea. * Medical History: * Surgical History: * Hospitalization/Major Diagno stic Procedure: * Medications: T akingVitamin D (Cholecalciferol) 50 MCG (1999) Capsule 2 capsules Orally Once a day Aspir-81 81 MG Tablet Delayed Release 1 tablet Orally Once a day Estradiol 0.5 MG Tablet 1 tablet Orally Once a day Albuterol Sulfate HFA 108 (90 Base) MCG/ACT Aerosol Solution 1 puff as needed Inhalation every 4 hrs Amoxicillin 500 MG Capsule 2 capsules Orally 1 hour before dental work medroxyPROGESTERone Acetate 2.5 MG Tablet TAKE ONE TABLET BY MOUTH EVERY DAY WITH FOOD Celecoxib 200 MG Capsule TAKE ONE CAPSULE BY MOUTH EVERY DAY WITH FOOD Taking Vitamin D (Cholecalciferol) 50 MCG (1999) Capsule 2 capsules Orally Once a day Taking Aspir-81 81 MG Tablet Delayed Release 1 tablet Orally Once a day Taking Estradiol 0.5 MG Tablet 1 tablet Orally Once a day Taking Albuterol Sulfate HFA 108 (90 Base) MCG/ACT Aerosol Solution 1 puff as needed Inhalation every 4 hrs Taking Amoxicillin 500 MG Capsule 2 capsules Orally 1 hour before dental work Taking medroxyPROGESTERone Acetate 2.5 MG Tablet TAKE ONE TABLET BY MOUTH EVERY DAY WITH FOOD Taking Celecoxib 200 MG Capsule TAKE ONE CAPSULE BY MOUTH EVERY DAY WITH FOOD Not-Taking/PRNFiber - Tablet as directed Orally dexAMETHasone 4 MG Tablet 1 tablet Orally 3 times a day HYDROcodone- Acetaminophen 5-325 MG Tablet 1 tablet as needed Orally every 6 hrs as needed Ambien 5 MG Tablet 1 tablet at bedtime Orally Once a day Zolpidem Tartrate 10 MG Tablet 1 tablet at bedtime as needed Orally Once a day as needed ProAir HFA 108 (90 Base) MCG/ACT Aerosol Solution 2 puffs as needed Inhalation every 6 hrs Medication List reviewed and reconciled with the patientNot-Taking/PRN Fiber - Tablet as directed Orally Not-Taking/PRN dexAMETHasone 4 MG Tablet 1 tablet Orally 3 times a day Not- Taking/PRN HYDROcodone-Acetaminophen 5-325 MG Tablet 1 tablet as needed Orally every 6 hrs as needed Not-Taking/PRN Ambien 5 MG Tablet 1 tablet at bedtime Orally Once a day Not-Taking/PRN Zolpidem Tartrate 10 MG Tablet 1 tablet at bedtime as needed Orally Once a day as needed Not-Taking/PRN ProAir HFA 108 (90 Base) MCG/ACT Aerosol Solution 2 puffs as needed Inhalation every 6 hrs Medication List reviewed and reconciled with the patient * Allergies: N .K.D.A.yes[Allergies Verified] Objective: * Vitals: H t: 62.25, Wt: 203, BMI:36.83, BP:144/76, Wt-k.08. weight is up 8 pounds since 08-03-24. * Examination: G eneral Examination: GENERAL APPEARANCE: a lert, well hydrated, in no distress.? HEAD: n ormocephalic. SKIN: n ormal. HEART: g rade 2/6 systolic murmur at left sternal border.? LUNGS: n o wheezes, rales, rhonchi, good air movement, clear to auscultation bilaterally. ABDOMEN: s oft, nontender, nondistended, no rebound tenderness, no masses palpable. Assessment: * Assessment: 1. L oss of balance - R26.89 (Primary) 2 . H eartburn - R12 ? Plan: * Treatment: 2. H eartburn Start Omeprazole Capsule Delayed Release, 20 MG, 1 capsule 1/2 to 1 hour before morning meal, Orally, Once a day, 30 days, 30, Refills 1. * Procedure Codes: 3 6415 VENIPUNCT, ROUTINE* * Follow Up: 2 Weeks * * Sign off status: Completed true * Provider: Lico Malave MD Date: 0 03/29/2025 Generated for Vandana mendoza/Stella/Nadja on: 09/01/2024 02:15 PM EST History and Physical Notes * HPI (History of Present Illness) Category Sub-Category Detail Notes Category Not es Symptom(s) patient is a 70 yo female here for complaint of fatigue and bloating/ not feeling well..headache on back of head. all started after the dexamethasone. balance is way off and stomach is bloated. off dexamthasone. having trouble with balance. has to hold onto things when walking in condo Examination Category Sub-Category Detail Notes Category Not es General Examination GENERAL APPEARANCE: alert, w ell hydrated, in no distress HEAD: normocephalic HEART: grade 2/6 systolic m urmur at left sternal border LUNGS: no wheezes, rales, r honchi, good air movement, clear to auscultation bilaterally ABDOMEN: soft, nontender, non distended, no rebound tenderness, no masses palpable SKIN: normal
--- OUTSIDE RECORDS SUMMARY | 2025-04-19 03:30 | XMS_ITS ---
Author Organization Jesus Malave MD Address [address] [place], [place] [id number] Care Team Providers Care Vendette Name Role Phone Jesus Malave Primary Care Provider [phone] Allergies No Known Allergies REASON FOR VISIT [...] Jesus Malave MD [address] [place], [place] [phone] 04/19/2025 Jesus Malave Heart murmur R01.1 and [...] Up: 4 Weeks, Reason: Provider Name:Jesus burkett, 07/11/2025 07:30:00 AM, [address], [address], [place], [place], [phone], Progress Notes * Becky DIAZ RDOB:11/1954 (70 yo F)Acc No.[id number]:04/19/2025 Progress Notes Patient: Becky SLATER Provider: Lico Malave MD :1955 A ge:70 Y S ex:Female Date:04/19/2025 Address:[address] [place] [address] Subjective: * Chief Complaints: * 2 week [...] day Taking Vitamin D (Cholecalciferol) 50 MCG (1999) [...] Malave MD Date: 0 04/19/2025 Generated for Vandana mendoza/Stella/Philipitting on: 1 09/01/2024 02:15 PM EST History and Physical [...]
--- OUTSIDE RECORDS SUMMARY | 2025-04-23 03:07 | XMS_ITS ---
Author Organization Jesus Malave MD Address [address] [place] [phone] Care Team Providers Care Cotton Gin Yard Supervisor Name Role Phone Jesus Malave Primary Care Provider [phone] REASON FOR VISIT RF Amoxicillin Medications Medication SIG (Take, Route, Fr equency, Duration) Notes Start Date End Date Status Amoxicillin 500 MG 2 capsules Orally 1 hour before dental work for 1 days 04/07/2021 Active Encounters Encounter Location Date Provider Diagnosis Jesus Malave MD [address] [facility] [address] [place] [phone] 04/23/2025 Jesus Malave Plan Of Treatment Medication Medication Name Sig Start Date Stop Date Notes Amoxicillin 500 MG 2 capsules Orally 1 hour before dental work for 1 days 04/07/2021 Next Appt Details Provider Name:Jesus Monzon ier, 07/11/2025 07:30:00 AM, [address] [facility], [address], [place], [place], [phone], Progress Notes * Becky DIAZ RDOB:11/1954 (70 yo F)Acc No.[id number]:04/23/2025 Patient: Becky SLATER :1955 A ge:70 Y S ex:Female Address:[address] [place] [address] * Refills Refill Amoxicillin Capsule, 500 MG, Orally, 4 Capsule, 2 capsules, 1 hour before dental work, 1 days, Refills=1 * true * Date: Generated for Vandana mendoza/Stella/Philipitting on: 09/01/2024 02:13 PM EST
--- OUTSIDE RECORDS SUMMARY | 2025-05-21 03:15 | XMS_ITS ---
Author Organization Jesus Malave MD Address [address] [place], [place] [phone] Care Team Providers Care Hollow Core Door Frame Assembler Name Role Phone Jesus Malave Primary [...] kg/m2 05/21/2025 weight is down 2 pounds [facility] e 04-19-25 Encounters Encounter Location Date Provider Diagnosis Jesus Malave MD [address] [facility] [address] [place], [place] [phone] 05/21/2025 Jesus Malave Heartburn R12 and Shortness [...] 3 Weeks, Reason: Provider Name:Jesus Monzon ier, 07/11/2025 07:30:00 AM, [address] [place] [address], [address], [place], [place], [phone], Progress Notes * Becky DIAZ RDOB:11/1954 (70 yo F)Acc No.[id number]:05/21/2025 Progress Notes Patient: Becky SLATER Provider: Lico Malave MD :1955 A ge:70 Y S ex:Female Date:05/21/2025 Address:[address] [place] [address] Subjective: * Chief Complaints: * B reathing [...] work Taking Vitamin D (Cholecalciferol) 50 MCG (1999) [...] Lico Malave MD Date: Generated for Vandana mendoza/Stella/Philipitting on: 09/01/2024 02:14 PM EST History and Physical Notes * [...]
--- OUTSIDE RECORDS SUMMARY | 2025-05-23 04:40 | XMS_ITS ---
Author Organization Jesus Malave MD Address [address] [place] [phone] Care Team Providers Care Sailor Name Role Phone Jesus Malave Primary Care Provider [phone] REASON FOR VISIT med issue Medications Medication SIG (Take, Route, Fr equency, Duration) Notes Start Date End Date Status Omeprazole 20 MG 1 capsule 1/2 to 1 h our before morning meal Orally Once a day for 90 days 03/29/2025 Active Encounters Encounter Location Date Provider Diagnosis Jesus Malvae MD [address] [place] [id number] 05/23/2025 Jesus Malave Heartburn R12 Assessments Encounter [...] Provider Name:Jesus Monzon ier, 07/11/2025 07:30:00 AM, [address] [place] [address], [address], [place], [place], [phone], Progress Notes * Becky DIAZ RDOB:11/1954 (70 yo F)Acc No.[id number]:05/23/2025 Patient: Sajan [place] Jaiden :1955 A ge:70 Y S ex:Female Address:[address] [place] [address] * Refills Refill Omeprazole Capsule Delayed Release, 20 MG, Orally, 90, 1 capsule 1/2 to 1 hour before morning meal, Once a day, 90 days, Refills=3 * true * Date: Generated for Vandana mendoza/Stella/Philipitting on: 09/01/2024 02:14 PM EST
--- OUTSIDE RECORDS SUMMARY | 2025-05-30 11:30 | XMS_ITS ---
Author Organization Jesus Malave MD Address [address] [place] [phone] Care Team Providers Care Barrel Marker Name Role Phone Jesus Malave Primary Care Provider Allergies No Known Allergies REASON FOR VISIT 4 week Encounters Encounter Location Date Provider Diagnosis Jesus Malave MD [address] [facility] [address] [place] [phone] 05/30/2025 Jesus Malave Plan Of Treatment Next Appt Details Provider Name:Jesus Monzon ier, 07/11/2025 07:30:00 AM, [address] [facility], Suite [facility], [place], [place], [phone], Progress Notes * Becky DIAZ RDOB:11/1954 (70 yo F)Acc No.[id number]:05/30/2025 Progress Notes Patient: W Becky GRAMAJO Provider: Lico Malave MD :1955 A ge:70 Y S ex:Female Date:05/30/2025 Address:[address] [place], [place] [phone] Subjective: * Chief Complaints: * 1 . 4 week. * HPI: S ymptom(s): patient is a 70yo female here fr follow up visit. * ROS: G eneral/Constitutional: Denies C hills. D enies F atigue. D enies F ever. D enies H eadache. E NT: Denies S ore throat. R espiratory: Denies C ough. D enies S hortness of breath at rest. D enies S hortness of breath with exertion. G astrointestinal: Denies D iarrhea. D enies N ausea. * Medical History: 1 08/14/11 - Colonoscopy (repeat 10 yrs), 06/18/21 Mammo with additional view. * Allergies: N .K.D.A. Objective: * Vitals: Assessment: Plan: * Treatment: * * The named appointment provid er may or may not be the originator of this progress note, and it is not deemed complete until electronically signed by the appointment provider. Sign off status: Pending * Provider: Lico Malave MD Date: Generated for Vandana mendoza/Stella/Nadja on: 09/01/2024 02:14 PM EST
--- OUTSIDE RECORDS SUMMARY | 2025-06-20 11:30 | XMS_ITS ---
Author Organization Jesus Malave MD Address [address] [place] [phone] Care Team Providers Care Rendering Equipment Tender Name Role Phone Jesus Malave Primary Care Provider [phone] Allergies No Known Allergies REASON FOR VISIT 4 week follow up Encounters Encounter Location Date Provider Diagnosis Jesus Malave MD 10 [facility] [address] [place] [phone] 06/20/2025 Jesus Malave Plan Of Treatment Next Appt Details Provider Name:Jesus Monzon ier, 07/11/2025 07:30:00 AM, [address] [facility], Suite [facility], [place], [place], [phone], Progress Notes * Becky DIAZ RDOB:11/1954 (70 yo F)Acc No.[id number]:06/20/2025 Progress Notes Patient: W Becky GRAMAJO Provider: Lico Malave MD :1955 A ge:70 Y S ex:Female Date:06/20/2025 Address:[address] [place], [place] [phone] Subjective: * Chief Complaints: * 1 . 4 week follow up. * ROS: G eneral/Constitutional: Denies C hills. [...] Pending * Provider: Lico Malave MD Date: 08/20/2024 Generated for Vandana mendoza/Stella/Nadja on: 09/01/2024 02:15 PM EST
--- OUTSIDE RECORDS SUMMARY | 2025-07-02 03:00 | XMS_ITS ---
Author Organization Jesus Malave MD Address [address] [place], [place] [phone] Care Team Providers Care Underwriter Name Role Phone Jesus Malave Primary Care Provider [phone] Results Component Value Reference Range Notes Complete Blood Count Auto Di ff Reviewed date:07/02/2025 01:33:42 PM Interpretation: Performing Lab:[facility], [address] [place] [phone] Notes/Report: White Blood Count 5.9 4.8-10.8 X10*3/uL [...] NRBC Abs Auto 0.000 0.0-0.012 X10*3/uL Comprehensive [place]. Panel Fa st Reviewed date:07/02/2025 12:37:46 PM Interpretation: Performing Lab:[facility], [address] [place] [phone] Notes/Report: Sodium 139 135-145 mmol/L Potassium 3.9 [...] Panel Reviewed date:07/02/2025 12:37:04 PM Interpretation: Performing Lab:[facility], [address] [place] [phone] Notes/Report: Triglycerides 63 <150 mg/dL Desirable Triglyceride: [...] t Reviewed date:07/02/2025 12:38:52 PM Interpretation: Performing Lab:[facility], [address] [place] [phone] Notes/Report: Urine, Clean Catch Color Urine Yellow Appearance Urine Cloudy PH 5.5 5.0-9.0 Glucose Urine UA Negative Negative mg/dL Urine Blood Negative Negative Specific [place] - Urine 1.015 1.005-1.025 Urine Protein Negative [...] Malave MD [address] [place], [place] [phone] 07/02/2025 Jesus Malave Blood tests for routine general physical examination Z00.00 Assessments Encounter Date Diagnosis (ICD Code) Assessment Notes Treatment Notes Treatment Clinical Notes Section Notes 07/02/2025 Blood tests for routine general physical examination (ICD-10 - Z00.00) Plan Of Treatment Next Appt Details Provider Name:Jesus Monzon ier, 07/11/2025 07:30:00 AM, [address] [facility], Suite [facility], [place], [place], [phone], Progress Notes * Becky DIAZ RDOB:11/1954 (70 yo F)Acc No.[id number]:07/02/2025 Progress Note Patient: Becky SLATER Provider: Lico Malave MD :1955 A ge:70 Y S ex:Female Date:07/02/2025 Address:[address] [place] [address] Subjective: * Chief Complaints: * 1 . [...] Date: 09/01/2024 Generated for Vandana mendoza/Stella/Philipitting on: 09/01/2024 02:14 PM EST
[2025-07-02 10:57] LABS: MANUAL DIFF FLAG NO
[2025-07-02 11:09] LABS: Hematocrit 43.7 % (37.0-47.0); Hemoglobin 14.2 g/dl (12.0-16.0); Imm Gran Abs Auto 0.02 X10*3/uL (0.00-0.03); Imm Gran Pct Auto 0.3 % (0.0-0.4); Lymphocytes Absolute Auto 1.4 X10*3/uL (1.2-4.9); Mean Corpuscular HGB Conc 32.5 g/dl (31.0-35.0); Mean Corpuscular Hemoglobin 30.2 pg (27.0-33.0); Mean Corpuscular Volume 93.0 fL (80.0-98.0); NRBC Abs Auto 0.000 X10*3/uL (0.0-0.012); NRBC Pct Auto 0.0 /100WBC (0.0-0.2); Platelet Count 259 X10*3/uL (160-400); Red Blood Count 4.70 X10*6/uL (4.20-5.50); White Blood Count 5.9 X10*3/uL (4.8-10.8)
[2025-07-02 11:13] LABS: Appearance Urine Cloudy; Glucose Urine UA Negative (Negative); PH 5.5 (5.0-9.0); Specific Gravity - Urine 1.015 (1.005-1.025); UMIC TRIGGER UACC YES
[2025-07-02 11:23] LABS: Alanine Aminotransferase 14 U/L (0-31); Albumin Level 4.4 g/dL (3.5-5.0); Alkaline Phosphatase 69 U/L (39-117); Anion Gap 11 (12-20); Aspartate Amino Transferase 27 U/L (5-31); Blood Urea Nitrogen 22 mg/dL (9-16); Calcium 8.9 mg/dL (8.4-10.2); Carbon Dioxide 28 mmol/L (22-29); Chloride 104 mmol/L (96-108); Cholesterol 178 mg/dL (<200); Estimated Glomerular Filt Rate > 60; HDL Cholesterol 70 mg/dL (>40); Potassium 3.9 mmol/L (3.3-5.1); Sodium 139 mmol/L (135-145); Total Protein 6.9 g/dL (6.5-8.0); Triglycerides 63 mg/dL (<150)
[2025-07-02 11:28] LABS: UACC Culture Trigger YES
--- OUTSIDE RECORDS SUMMARY | 2025-07-02 14:14 | XMS_ITS | Patient Health Record ---
Author Organization Jesus Malave MD Address [address] [place], [place] [phone] Care Team Providers Care Winding Department Supervisor Name Role Phone Jesus Malave Primary Care Provider Allergies No Known Allergies Results Component Value Reference Range Notes Complete Blood Count Auto Di ff Reviewed date:07/26/2024 12:23:24 PM Interpretation: Performing Lab:[facility], [address] [place] [phone] Notes/Report: White Blood Count 4.4 4.8-10.8 X10*3/uL [...] NRBC Abs Auto 0.000 0.0-0.012 X10*3/uL Comprehensive [place]. Panel Fa st Reviewed date:07/26/2024 12:25:21 PM Interpretation: Performing Lab:[facility], [address] [place] [phone] Notes/Report: Sodium 142 135-145 mmol/L Potassium 3.9 [...] Panel Reviewed date:07/26/2024 12:17:17 PM Interpretation: Performing Lab:[facility], [address] [place] [phone] Notes/Report: Triglycerides 50 <150 mg/dL Desirable Triglyceride: [...] t Reviewed date:07/26/2024 12:25:03 PM Interpretation: Performing Lab:[facility], [address] [place] [phone] Notes/Report: Urine, Clean Catch Color Urine Yellow Appearance Urine Cloudy PH 6.0 5.0-9.0 Glucose Urine UA Negative Negative mg/dL Urine Blood Negative Negative Specific [place] - Urine 1.020 1.005-1.025 Urine Protein Negative [...] ff Reviewed date:07/02/2025 01:33:42 PM Interpretation: Performing Lab:[facility], [address] [place] [phone] Notes/Report: White Blood Count 5.9 4.8-10.8 X10*3/uL [...] NRBC Abs Auto 0.000 0.0-0.012 X10*3/uL Comprehensive [place]. Panel Fa st Reviewed date:07/02/2025 12:37:46 PM Interpretation: Performing Lab:[facility], [address] [place] [phone] Notes/Report: Sodium 139 135-145 mmol/L Potassium 3.9 [...] Panel Reviewed date:07/02/2025 12:37:04 PM Interpretation: Performing Lab:[facility], [address] [place] [phone] Notes/Report: Triglycerides 63 <150 mg/dL Desirable Triglyceride: [...] t Reviewed date:07/02/2025 12:38:52 PM Interpretation: Performing Lab:[facility], [address] [place] [phone] Notes/Report: Urine, Clean Catch Color Urine Yellow Appearance Urine Cloudy PH 5.5 5.0-9.0 Glucose Urine UA Negative Negative mg/dL Urine Blood Negative Negative Specific [place] - Urine 1.015 1.005-1.025 Urine Protein Negative [...] ff Reviewed date:03/29/2025 04:04:52 PM Interpretation: Performing Lab:[facility], [address] [place] [phone] Notes/Report: White Blood Count 7.4 4.8-10.8 X10*3/uL [...] NRBC Abs Auto 0.000 0.0-0.012 X10*3/uL Comprehensive [place]. Panel Fa st Reviewed date:03/31/2025 03:19:55 PM Interpretation: Performing Lab:[facility], [address] [place] [phone] Notes/Report: Sodium 140 135-145 mmol/L Potassium 4.0 [...] T4 Reviewed date:03/31/2025 03:19:34 PM Interpretation: Performing Lab:[facility], [address] [place] [phone] Notes/Report: TSH reflex Free T4 3.45 0.32-4.0 uIU/mL Caesar Madsen Reviewed date:07/26/2024 12:16:59 PM Interpretation: Performing Lab:[facility], [address] [place] [phone] Notes/Report: Caesar Madsen See Note Specimen held untested for 24 hours; Call to request Chemistry testing. Urine Culture Reviewed date:07/27/2024 04:37:35 PM Interpretation: Performing Lab:[facility], [address] [place] [phone] Notes/Report: Urine Culture No growth. Caesar Madsen Reviewed date:03/29/2025 04:03:58 PM Interpretation: Performing Lab:[facility], [address] [place] [phone] Notes/Report: Caesar Madsen See Note Specimen held untested for 24 hours; Call to request Chemistry testing. Caesar Madsen Reviewed date:07/02/2025 12:37:11 PM Interpretation: Performing Lab:[facility], [address] [place] [address], [place] [phone] Notes/Report: Hold Gold See Note Specimen held [...] EVERY DAY WITH FOOD for 90 Active Omeprazole 20 MG 1 capsule 1/2 to 1 hour before morning meal Orally Once a day for 90 days 03/29/2025 Active Immunizations Vaccine Route Administration Date Status [...] Problem Status W/U Status Risk Notes Problem 5391671 Primary insomnia (F51.01) Active confirmed Problem 757409000 Other specified menopausal and perimenopausal disorders (N95.8) Active confirmed Problem 4233012 Aortic valve dis order (I35.9) Active confirmed Problem 875751470 Nonrheumatic aor tic valve stenosis (I35.0) Active confirmed Problem 689052599 Raynauds phenome non without gangrene (I73.00) Active confirmed Problem 95871820 Heart murmur (R01.1) Active confirmed Problem 466730321 Acquired spondylolisthesis (M43.10) Active confirmed Problem 84152465 Degeneration of lumbar or lumbosacral intervertebral disc (M51.37) Active confirmed Problem Loss of balance (660805467) Loss of balance (R26.89) Active confirmed Problem 38088754 Aortic ectasia, thoracic (I77.810) Active confirmed Problem 15351129 Spinal 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) Active confirmed Vital Signs Blood pressure diastolic 76 mm Hg 05/21/2025 manfred ght is down 2 pounds since 04-19-25 Height 62.25 in 05/21/2025 weight is down 2 pounds since 04-19-25 Blood pressure systolic 132 mm Hg 05/21/2025 weig ht is down 2 pounds since 04-19-25 Weight 203 lbs 05/21/2025 weight is down 2 pounds since 04-19-25 BMI 36.83 kg/m2 05/21/2025 weight is down 2 pounds since 04-19-25 Encounters Encounter Location Date Provider Diagnosis Jesus Malave MD [address] [place] [id number] 07/26/2024 Jesus Malave Blood tests for routine general physical examination Z00.00 Jesus Malave MD [address] [place] [id number] 07/02/2025 Jesus Malave Blood tests for routine general physical examination Z00.00 Jesus Malave MD [address] [place] [id number] 07/23/2024 Jesus Malave Bronchitis J40 Jesus Malave MD [address] [place] [id number] 08/03/2024 Jesus Malave Nonrheumatic aortic valve stenosis I35.0 ; Annual physical exam Z00.00 ; Degeneration of lumbar or lumbosacral intervertebral disc M51.37 and Depression screening Z13.31 Jesus Malave MD [address] [place] [id number] 03/29/2025 Jesus Malave Loss of balance R26. 89 and Heartburn R12 Jesus Malave MD [address] [place] [id number] 04/19/2025 Jesus Malave Heart murmur R01.1 a nd Spinal stenosis of lumbar region without neurogenic claudication M48.061 Jesus Malave MD [address] [place] [id number] 05/21/2025 Jesus Malave Heartburn R12 and Shortness of breath R06.02 Jesus Malave MD [address] [place] [id number] 07/24/2024 Jesus Malave MD [address] [place] [id number] 09/04/2024 Jesus Malave MD [address] [place] [id number] 03/14/2025 Jesus Malave MD [address] [place] [id number] 04/23/2025 Jesus Malave MD [address] [place] [id number] 05/23/2025 Jesus Malave Heartburn R12 Assessments Encounter Date Diagnosis (ICD Code) Assessment Notes Treatment Notes Treatment Clinical Notes Section Notes 07/26/2024 Blood tests for routine general physical examination (ICD-10 - Z00.00) 07/02/2025 Blood tests for routine general physical examination (ICD-10 - Z00.00) 07/23/2024 Bronchitis (ICD-10 - J40) patient verbalized understanding of medication and directions for use 08/03/2024 Nonrheumatic aortic valve stenosis (ICD-10 - I35.0) 08/03/2024 Annual physical exam (ICD-10 - Z00.00) labs reviewed and discused with patient 03/29/2025 Loss of balance (ICD-10 - R26.89) 03/29/2025 Heartburn (ICD-10 - R12) 04/19/2025 Heart murmur (ICD-10 - R01.1) not getting any worse 05/21/2025 Heartburn (ICD-10 - R12) 05/21/2025 Shortness of breath (ICD-10 - R06.02) seems most likely cardiac. will refer to dr casas 05/23/2025 Heartburn (ICD-10 - R12) 08/03/2024 Degeneration of lumbar or lumbosacral intervertebral [...] Provider Name:Jesus Monzon ier, 07/11/2025 07:30:00 AM, [address] [place] [address], [address], [place], [place], [phone], Insurance Providers Payer Name Payer Address Payer Phone Subscriber Number Group Number Insured Name Patient Relationship to Insured Coverage Start Date Coverage End Date [employer] E [address] [place], [place] [id number] Becky Rios Self - patient is the insured MEDICARE [facility] [place] [address] [id number] Becky Rios Self - patient is the insured Medical (General) History Medical History History ICD Code 06/14/12 - Colonoscopy (repeat 10 yrs) 06/18/21 Mammo with additional view Surgical History Surgery Date(Month/Year) L-4 L-5 trans-facet foraminal decompress ion by Dr. Canales 02/2017
--- OUTSIDE RECORDS SUMMARY | 2025-07-02 14:15 | XMS_ITS | Patient Health Record ---
[facility] Address [address] [place] [address] Care Team Providers Care Treater Helper Name Role Phone Jesus Maalve MD Primary Care Provider Ar Crisostomo Unavailable [phone] Reason For Referral No Information Medications Medication SIG (Take, Route, Frequency, Duration) Notes Start Date End Date Status Aspirin 81 MG Orally Active Prempro Active CeleBREX Active Problems Problem Type SNOMED Code ICD Code Onset Dates Problem Status W/U Status Risk Notes Problem Disorder of joint of ankle and/or foot (066071909) Arthritis - Degenerative (719.97) Active confirmed Problem Plantar fasciitis (664217378) Plantar Fasciitis (728.71) Active confirmed Problem Pain in limb (83788616) Pain in Limb (729.5) Active confirmed Problem Stress fracture (06713177) Stress fx (733.94) Active confirmed Plan Of Treatment No Information Insurance Providers Payer Name Payer Address Payer Phone Subscriber Number Group Number Insured Name Patient Relationship to Insured Coverage Start Date Coverage End Date [employer] [address] [place] [address] [id number] Becky Rios Self - patient is the insured Medical (General) History Medical History History ICD Code Raynauds syndrome Chicken pox Mumps Surgical History Surgery Date(Month/Year) section ,
== END 2025-07-02 10:54 | disposition home or self-care (01) ==
LOC: HO.LNP 10:53
PROVIDERS: Visit Provider Internal Medicine
DX: Z00.00 Encounter for general adult medical examination without abnormal findings (principal); Z13.6 Encounter for screening for cardiovascular disorders
CPT/HCPCS: 80053; 80061; 81001; 85025; 87086

== ENCOUNTER 2025-07-11 13:13 | Outpatient (REF) | payer MEDICARE, SELFPAY ==
--- NOTE | ~2025-07-11 | XR_ITS ---
EXAMINATION: XR CHEST CLINICAL INFORMATION: SOB COMPARISON: X-ray 07/27/2022 TECHNIQUE: 2 views of the chest were obtained. FINDINGS: The cardiomediastinal silhouette is within normal limits. Mild right hemidiaphragm elevation.. There is peribronchial thickening, hazy opacities in the right lower lung. No effusion. No pneumothorax. . No pneumothorax. Thoracolumbar spondylosis. XR/XR chest 2V IMPRESSION: Right lower lung peribronchial thickening/hazy opacities, can be seen with inflammatory/infectious process. Electronically signed by: Kristopher Dowd MD 07/12/2025 07:32 AM [facility]
== END 2025-07-11 13:14 | disposition home or self-care (01) ==
LOC: HO.XRAY 13:13
PROVIDERS: PCP Internal Medicine; Visit Provider Internal Medicine
DX: R06.02 Shortness of breath (principal)
CPT/HCPCS: 71046

== ENCOUNTER → 2025-07-11 13:27 | Outpatient (BNV) | payer MEDICARE, SELFPAY | PROVIDERS: PCP Internal Medicine; Visit Provider Radiology Diagnostic Ultrasound | DX: R06.02 Shortness of breath (principal) | CPT/HCPCS: 71046 ==

== ENCOUNTER → 2025-07-24 14:43 | Outpatient (REF) | payer MEDICARE, SELFPAY ==
--- OUTSIDE RECORDS SUMMARY | 2025-03-29 09:30 | XMS_ITS ---
Author Organization Jesus Malave MD Address [address] [place], [place] [id number] Care Team Providers Care Stone Planer Name Role Phone Jesus Malave Primary Care Provider [phone] Allergies No Known Allergies Results Component Value Reference Range Notes Complete Blood Count Auto Di ff Reviewed date:03/29/2025 04:04:52 PM Interpretation: Performing Lab:[facility], [address] [place] [phone] Notes/Report: White Blood Count 7.4 4.8-10.8 X10*3/uL [...] NRBC Abs Auto 0.000 0.0-0.012 X10*3/uL Comprehensive [place]. Panel Fa st Reviewed date:03/31/2025 03:19:55 PM Interpretation: Performing Lab:[facility], [address] [place] [phone] Notes/Report: Sodium 140 135-145 mmol/L Potassium 4.0 [...] T4 Reviewed date:03/31/2025 03:19:34 PM Interpretation: Performing Lab:[facility], [address] [place] [phone] Notes/Report: TSH reflex Free T4 3.45 0.32-4.0 [...] Status Risk Notes Problem Loss of balance ([id number]) Loss of balance (R26.89) Active confirmed Vital Signs Blood pressure systolic 144 mm Hg 03/29/20 25 Blood pressure diastolic 76 mm Hg 025 Height 62.25 in 03/29/2025 Weight 203 lbs 03/29/2025 BMI 36.83 kg/m2 03/29/2025 weight is up 8 pounds since 08-03-24 Encounters Encounter Location Date Provider Diagnosis Jesus Malave MD [address] [place] [phone] 03/29/2025 Jesus Malave Loss of balance R26.89 [...] Follow Up: 2 Weeks, Reason: Provider Name:Jesus burkett, 08/15/2025 07:30:00 AM, [address] [place] [address], [address], [phone], Provider Name:Jesus burkett, 07/10/2026 07:00:00 AM, [address] [place] [address], [address], [phone], Provider Name:Jesus burkett, 07/17/2026 08:00:00 AM, [address] [place] [address], [address], [phone], Progress Notes * Becky DIAZ RDOB:11/1954 (70 yo F)Acc No.[id number]:03/29/2025 Progress Notes Patient: Becky SLATER Provider: Lico Malave MD :1955 A ge:70 Y S ex:Female Date:03/29/2025 Address:[address] [place], [place] [phone] Subjective: * Chief Complaints: * F atigue [...] Medications: T akingVitamin D (Cholecalciferol) 50 MCG (2000 UT) Capsule 2 capsules Orally Once a day [...] FOOD Taking Vitamin D (Cholecalciferol) 50 MCG (2000 UT) Capsule 2 capsules Orally Once a day [...] MD Date: 0 03/29/2025 Generated for Vandana mendoza/Stella/eTransmitting on: 1 09/24/2024 07:39 PM EST History and Physical Notes * [...]
--- OUTSIDE RECORDS SUMMARY | 2025-04-19 03:30 | XMS_ITS ---
Author Organization Jesus Malave MD Address [address] [place], [place] [id number] Care Team Providers Care Grinder Chipper Name Role Phone Jesus Malave Primary Care Provider [phone] Allergies No Known Allergies REASON FOR VISIT 2 week f/u, Wants to wait until May for Flu vac Medications Medication SIG (Take, Route, Frequency, Duration) Notes Start Date End Date Status dexAMETHasone 4 MG 1 tablet Orally 3 times a day for 10 days 03/14/2025 Not-Taking Celecoxib 200 MG TAKE ONE CAPSULE BY MOUTH EVERY DAY WITH FOOD for 90 Active Ambien 5 MG 1 tablet at bedtime Orally Once a day for 14 days 06/25/2022 Not-Taking HYDROcodone-Acetaminophen 5-325 MG 1 tablet as needed Orally every 6 hrs as needed for 30 days 08/17/2022 Not-Taking Zolpidem Tartrate 10 MG 1 tablet at bedt maxime as needed Orally Once a day as needed 05/29/2018 Not-Taking medroxyPROGESTERone Acetate 2.5 MG TAKE ONE TABLET BY MOUTH EVERY DAY WITH FOOD for 90 Active Amoxicillin 500 MG 2 capsules Orally 1 hour before dental work for 1 days 04/07/2021 Active Aspir-81 81 MG 1 tablet Orally Once a day for 30 day(s) Active Albuterol Sulfate HFA 108 (9 0 Base) MCG/ACT 1 puff as needed Inhalation every 4 hrs for 30 days 07/04/2023 Active Estradiol 0.5 MG 1 tablet Orally Once a day for 90 days Active ProAir HFA 108 (90 Base) MCG/ACT 2 puffs as needed Inhalation every 6 hrs for 30 days 11/22/2018 Not-Taking Omeprazole 20 MG 1 capsule 1/2 to 1 hour before morning meal Orally Once a day for 30 days 03/29/2025 Active Vitamin D (Cholecalciferol) 50 MCG (2000 UT) 2 capsules Orally Once a day Active Fiber - as directed Orally N ot-Taking Vital Signs Blood pressure systolic 152 mm Hg 04/19/20 25 Blood pressure diastolic 80 mm Hg 025 Height 62.25 in 04/19/2025 Weight 205 lbs 04/19/2025 BMI 37.19 kg/m2 04/19/2025 Encounters Encounter Location Date Provider Diagnosis Jesus Malave MD [address] [place] [address] Drive [address] [place], [place] [id number] 04/19/2025 Jesus Malave Heart murmur R01.1 and Spinal stenosis of lumbar region without neurogenic claudication M48.061 Assessments Encounter Date Diagnosis (ICD Code) Assessment Notes Treatment Notes Treatment Clinical Notes Section Notes 04/19/2025 Heart murmur (ICD-10 - R01.1) not getting any worse 04/19/2025 Spinal stenosis of lumbar region without neurogenic claudication (ICD-10 - M48.061) is stable so will encourage her to start exercising. Plan Of Treatment Treatment Notes Assessment Notes Heart murmur not getting any wors e Spinal stenosis of lumbar re gion without neurogenic claudication is stable so will encourage her to start exercising. Next Appt Details Follow Up: 4 Weeks, Reason: Provider Name:Jesus burkett, 08/15/2025 07:30:00 AM, [address] [place] [address], [address], [place], [place], [phone], Provider Name:Jesus burkett, 07/10/2026 07:00:00 AM, [address], [address], [place], [place], [phone], Provider Name:Jesus Monzon ier, 07/17/2026 08:00:00 AM, [address], [address], [place], [place], [phone], Progress Notes * Becky DIAZ RDOB:11/1954 (70 yo F)Acc No.[id number]:04/19/2025 Progress Notes Patient: Becky SLATER Provider: Lioc Malave MD :1955 A ge:70 Y S ex:Female Date:04/19/2025 Address:[address] [place], [place] [phone] Subjective: * Chief Complaints: * 2 week f/uWants to wait until May for Flu vac * HPI: S ymptom(s): patient is a 70 yo female here for 2 week follow up visit/ previously was having hot flashs sure on head is better. is out of breath. can't walk to the end of her street. stomach is better. was having hot flash symptoms. * ROS: G eneral/Constitutional: Denies C hills. D enies F atigue. D enies F ever. D enies H eadache. E NT: Denies S ore throat. R espiratory: Denies C ough. A dmits S hortness of breath at rest. A dmits S hortness of breath with exertion. C ardiovascular: Denies C hest pain at rest. D enies C hest pain with exertion. D enies D izziness. D enies F luid accumulation in the legs. A dmits?Shortness of breath. G astrointestinal: Denies D iarrhea. D enies N ausea. * Medical History: * Surgical [...] CAPSULE BY MOUTH EVERY DAY WITH FOOD Omeprazole 20 MG Capsule Delayed Release 1 capsule 1/2 to 1 hour before morning meal Orally Once a day Taking Vitamin D (Cholecalciferol) 50 MCG (2000 [...] BY MOUTH EVERY DAY WITH FOOD Taking Omeprazole 20 MG Capsule Delayed Release 1 capsule 1/2 to 1 hour before morning meal Orally Once a day Not-Taking/PRNFiber - Tablet as directed Orally dexAMETHasone 4 MG Tablet 1 tablet Orally 3 times a day HYDROcodone-Acetaminophen 5-325 MG Tablet 1 tablet as needed Orally every 6 hrs as needed Ambien 5 MG Tablet 1 tablet at bedtime Orally Once a day Zolpidem Tartrate 10 MG Tablet 1 tablet at bedtime as needed Orally Once a day as needed ProAir HFA 108 (90 Base) MCG/ACT Aerosol Solution 2 puffs as needed Inhalation every 6 hrs Not-Taking/PRN Fiber - Tablet as directed Orally Not-Taking/PRN dexAMETHasone 4 MG Tablet 1 tablet Orally 3 times a day Not-Taking/PRN HYDROcodone-Acetaminophen 5-325 MG Tablet 1 tablet as needed Orally every 6 hrs as needed Not-Taking/PRN Ambien 5 MG Tablet 1 tablet at bedtime Orally Once a day Not-Taking/PRN Zolpidem Tartrate 10 MG Tablet 1 tablet at bedtime as needed Orally Once a day as needed Not-Taking/PRN ProAir HFA 108 (90 Base) MCG/ACT Aerosol Solution 2 puffs as needed Inhalation every 6 hrs * Allergies: N .K.D.A.yes[Allergies Verified] Objective: * Vitals: H t: 62.25, Wt: 205, BMI:37.19, BP:152/80, Repeat BP:120/80, Wt-k.99. * Examination: G eneral Examination: GENERAL APPEARANCE: a lert, well hydrated, in no distress.? HEAD: n ormocephalic. SKIN: g ood turgor. HEART: r egular rate and rhythm, no murmurs, rubs, gallops.? LUNGS: c lear to auscultation bilaterally, good air movement, no wheezes, rales, rhonchi. Assessment: * Assessment: 1. H eart murmur - R01.1 (Primary) 2 . S jerod stenosis of lumbar region without neurogenic claudication - M48.061 Plan: * Treatment: 2. S jerod stenosis of lumbar region without neurogenic claudication Notes: is stable so will encourage her to start exercising. * Procedure Codes: * Follow Up: 4 Weeks * * Sign off status: Completed true * Provider: Lico Malave MD Date: 0 04/19/2025 Generated for [employer] kelly/Stella/Sherrieransmitting on: 1 09/24/2024 07:39 PM EST History and Physical Notes * HPI (History of Present Illness) Category Sub-Category Detail Notes Category Not es Symptom(s) patient is a 70 yo female here for 2 week follow up visit/ previously was having hot flashs sure on head is better. is out of breath. can't walk to the end of her street. stomach is better. was having hot flash symptoms. Examination Category Sub-Category Detail Notes Category Not es General Examination GENERAL APPEARANCE: alert, w ell hydrated, in no distress HEAD: normocephalic HEART: regular rate and rhy thm, no murmurs, rubs, gallops LUNGS: clear to auscultatio n bilaterally, good air movement, no wheezes, rales, rhonchi SKIN: good turgor
--- OUTSIDE RECORDS SUMMARY | 2025-04-23 03:07 | XMS_ITS ---
Author Organization Jesus Malave MD Address [address] [place] [phone] Care Team Providers Care Laser Engineer Name Role Phone Jesus Malave Primary Care Provider REASON FOR VISIT RF Amoxicillin Medications Medication SIG (Take, Route, Fr equency, Duration) Notes Start Date End Date Status Amoxicillin 500 MG 2 capsules Orally 1 hour before dental work for 1 days 04/07/2021 Active Encounters Encounter Location Date Provider Diagnosis Jesus Malave MD [address] [facility] [address] [place] [phone] 04/23/2025 Jesus Malave Plan Of Treatment Medication Medication Name Sig Start Date Stop Date Notes Amoxicillin 500 MG 2 capsules Orally 1 hour before dental work for 1 days 04/07/2021 Next Appt Details Provider Name:Jesus burkett, 08/15/2025 07:30:00 AM, [address] [facility] [address], [address], [place], [place], [phone], Provider Name:Jesus burkett, 07/10/2026 07:00:00 AM, [address], [address], [place], [place], [phone], Provider Name:Jesus Monzon ier, 07/17/2026 08:00:00 AM, [address], [address], [place], [place], [phone], Progress Notes * Becky DIAZ RDOB:11/1954 (70 yo F)Acc No.[id number]:04/23/2025 Patient: Dario Becky GRAMAJO :1955 A ge:70 Y S ex:Female Address:[address] [place] [id number] * Refills Refill Amoxicillin Capsule, 500 MG, Orally, 4 Capsule, 2 capsules, 1 hour before dental work, 1 days, Refills=1 * true * Date: Generated for Vandana mendoza/Stella/Abdiazizsmitting on: 09/24/2024 07:38 PM EST
--- OUTSIDE RECORDS SUMMARY | 2025-05-21 03:15 | XMS_ITS ---
Author Organization Jesus Malave MD Address [address] [place], [place] [phone] Care Team Providers Care Hand Fur Cleaner Name Role Phone Jesus Malave Primary Care Provider Allergies No Known Allergies Reason For Referral Reason shortness of breath Diagnosis 1 Shortness of breath (R06.02) Referral Organization Jesus Malave MD Referring Provider First Name Jesus Referring Provider Last Name Frieda Referring Provider Speciality Internal M edicine Referred Provider KENY GUNTER Referred Provider Specialty Cardiology General Notes Libra Portillo 1 08:48:28 AM >patient is aware of Chuck diaz Patti A 06/17/2025 03:08:17 PM >OFFICE NOTE RECD Referral Priority Routine Referral Appointment Date 05/22/2025 REASON FOR VISIT Breathing problems Medications Medication SIG (Take, Route, Frequency, Duration) Notes Start Date End Date Status HYDROcodone-Acetaminophen 5-325 MG 1 tablet as needed Orally every 6 hrs as needed for 30 days 08/17/2022 Not-Taking Ambien 5 MG 1 tablet at bedtime Orally Once a day for 14 days 06/25/2022 Not-Taking Zolpidem Tartrate 10 MG 1 tablet at bedt maxime as needed Orally Once a day as needed 05/29/2018 Not-Taking ProAir HFA 108 (90 Base) MCG/ACT 2 puffs as needed Inhalation every 6 hrs for 30 days 11/22/2018 Not-Taking dexAMETHasone 4 MG 1 tablet Orally 3 times a day for 10 days 03/14/2025 Not-Taking Albuterol Sulfate HFA 108 (9 0 Base) MCG/ACT 1 puff as needed Inhalation every 4 hrs for 30 days 07/04/2023 Active Amoxicillin 500 MG 2 capsules Orally 1 hour before dental work for 1 days 04/07/2021 Active Fiber - as directed Orally N ot-Taking medroxyPROGESTERone Acetate 2.5 MG TAKE ONE TABLET BY MOUTH EVERY DAY WITH FOOD for 90 Active Celecoxib 200 MG TAKE ONE CAPSULE BY MOUTH EVERY DAY WITH FOOD for 90 Active Vitamin D (Cholecalciferol) 50 MCG (2000 UT) 2 capsules Orally Once a day Active Aspir-81 81 MG 1 tablet Orally Once a day for 30 day(s) Active Estradiol 0.5 MG 1 tablet Orally Once a day for 90 days Active Omeprazole 20 MG 1 capsule 1/2 to 1 hour before morning meal Orally Once a day for 90 days 03/29/2025 Active Vital Signs Blood pressure systolic 132 mm Hg 05/21/20 25 Blood pressure diastolic 76 mm Hg 025 Height 62.25 in 05/21/2025 Weight 203 lbs 05/21/2025 BMI 36.83 kg/m2 05/21/2025 weight is down 2 pounds [facility] e 04-19-25 Encounters Encounter Location Date Provider Diagnosis Jesus Malave MD 10 [facility] [address] [place], [place] [phone] 05/21/2025 Jesus Malave Heartburn R12 and Shortness of breath R06.02 Assessments Encounter Date Diagnosis (ICD Code) Assessment Notes Treatment Notes Treatment Clinical Notes Section Notes 05/21/2025 Heartburn (ICD-10 - R12) 05/21/2025 Shortness of breath (ICD-10 - R06.02) seems most likely cardiac. will refer to dr casas Plan Of Treatment Medication Medication Name Sig Start Date Stop Date Notes Omeprazole 20 MG 1 capsule 1/2 to 1 h our before morning meal Orally Once a day for 90 days 03/29/2025 Treatment Notes Assessment Notes Shortness of breath seems most likely ca rdiac. will refer to dr casas Referrals Referral Date Details 05/21/2025 05/21/2025, shortnes s of breath, GIANNA GUNTER Next Appt Details Follow Up: 3 Weeks, Reason: Provider Name:Jesus Monzon ier, 08/15/2025 07:30:00 AM, [address] [place] [address], [address], [phone], Provider Name:Jesus Monzon ier, 07/10/2026 07:00:00 AM, [address] [place] [address], [address], [phone], Provider Name:Jesus ribeiror, 07/17/2026 08:00:00 AM, [address] [place] [address], [address], [phone], Progress Notes * Becky DIAZ RDOB:11/1954 (70 yo F)Acc No.[id number]:05/21/2025 Progress Notes Patient: Becky SLATER Provider: Lico Malave MD :1955 A ge:70 Y S ex:Female Date:05/21/2025 Address:[address] [place] [address] Subjective: * Chief Complaints: * B reathing problems * HPI: S ymptom(s): patient is a 70 yo female here for follow up visit, still out of breath with walking. * ROS: G eneral/Constitutional: Denies C hills. D enies F atigue. D enies F ever. D enies H eadache. E NT: Denies S ore throat. R espiratory: Patient complaining of n o pnd or orthopneas. D enies?Cough. A dmits S hortness of breath at rest. A dmits S hortness of breath with exertion. C ardiovascular: Denies C hest pain at rest. D enies C hest pain with exertion, a dmits gets squeezin in left breast at times. D enies D ifficulty laying flat. D enies D izziness. D enies P alpitations. A dmits S hortness of breath. G astrointestinal: Denies D iarrhea. [...] puff as needed Inhalation every 4 hrs medroxyPROGESTERone Acetate 2.5 MG Tablet TAKE ONE TABLET BY MOUTH EVERY DAY WITH FOOD Celecoxib 200 MG Capsule TAKE ONE CAPSULE BY MOUTH EVERY DAY WITH FOOD Omeprazole 20 MG Capsule Delayed Release 1 capsule 1/2 to 1 hour before morning meal Orally Once a day Amoxicillin 500 MG Capsule 2 capsules Orally 1 hour before dental work Taking Vitamin D (Cholecalciferol) 50 MCG (1999 UT) Capsule 2 capsules Orally Once a day Taking Aspir-81 81 MG Tablet Delayed Release 1 tablet Orally Once a day Taking Estradiol 0.5 MG Tablet 1 tablet Orally Once a day Taking Albuterol Sulfate HFA 108 (90 Base) MCG/ACT Aerosol Solution 1 puff as needed Inhalation every 4 hrs Taking medroxyPROGESTERone Acetate 2.5 MG Tablet TAKE ONE TABLET BY MOUTH EVERY DAY WITH FOOD Taking Celecoxib 200 MG Capsule TAKE ONE CAPSULE BY MOUTH EVERY DAY WITH FOOD Taking Omeprazole 20 MG Capsule Delayed Release 1 capsule 1/2 to 1 hour before morning meal Orally Once a day Taking Amoxicillin 500 MG Capsule 2 capsules Orally 1 hour before dental work Not-Taking/PRNFiber - Tablet as directed Orally dexAMETHasone [...] tablet Orally 3 times a day Not-Taking/PRN HYDROcodone- Acetaminophen 5-325 MG Tablet 1 tablet as needed Orally every 6 hrs as needed Not-Taking/PRN Ambien 5 MG Tablet 1 tablet at bedtime Orally Once a day Not-Taking/PRN Zolpidem Tartrate 10 MG Tablet 1 tablet at bedtime as needed Orally Once a day as needed Not- Taking/PRN ProAir HFA 108 (90 Base) MCG/ACT Aerosol Solution 2 puffs as needed Inhalation every 6 hrs Medication List reviewed and reconciled with the patient * Allergies: N .K.D.A.yes[Allergies Verified] Objective: * Vitals: H t: 62.25, Wt: 203, BMI:36.83, BP:132/76, Wt-k.08. weight is down 2 pounds since 04-19-25. * Examination: G eneral Examination: GENERAL APPEARANCE: a lert, well hydrated, in no distress.? SKIN: g ood turgor. HEART: g rade 3/6 systolic murmur at left sternal border.? LUNGS: n o wheezes, rales, rhonchi, good air movement, clear to auscultation bilaterally. Assessment: * Assessment: 1. H eartburn - R12 (Primary) 2 . S hortness of breath - R06.02 ? Plan: * Treatment: 2. S hortness of breath Notes: seems most likely cardiac. will refer to dr casas ? Referral To:GIANNA GUNTER Cardiology Reason:shortness of breath * Procedure Codes: * Follow Up: 3 Weeks * * Sign off status: Completed true * Provider: Lico Malave MD Date: Generated for Vandana mendoza/Stella/Nadja on: 09/24/2024 07:38 PM EST History and Physical Notes * Examination Category Sub-Category Detail Notes Category Not es General Examination GENERAL APPEARANCE: alert, w ell hydrated, in no distress HEART: grade 3/6 systolic m urmur at left sternal border LUNGS: no wheezes, rales, r honchi, good air movement, clear to auscultation bilaterally SKIN: good turgor Consultation Request Notes Referral Date Referring Provider Referred Provider Not es 05/21/2025 Jesus Malave HARIHARAN s hortness of breath
--- OUTSIDE RECORDS SUMMARY | 2025-05-23 04:40 | XMS_ITS ---
Author Organization Jesus Malave MD Address [address] [place] [phone] Care Team Providers Care Tool Tender Name Role Phone Jesus Malave Primary Care Provider REASON FOR VISIT med issue Medications Medication SIG (Take, Route, Fr equency, Duration) Notes Start Date End Date Status Omeprazole 20 MG 1 capsule 1/2 to 1 h our before morning meal Orally Once a day for 90 days 03/29/2025 Active Encounters Encounter Location Date Provider Diagnosis Jesus Malave MD [address] [place] [id number] 05/23/2025 Jesus Malave Heartburn R12 Assessments Encounter Date Diagnosis (ICD Code) Assessment Notes Treatment Notes Treatment Clinical Notes Section Notes 05/23/2025 Heartburn (ICD-10 - R12) Plan Of Treatment Medication Medication Name Sig Start Date Stop Date Notes Omeprazole 20 MG 1 capsule 1/2 to 1 h our before morning meal Orally Once a day for 90 days 03/29/2025 Next Appt Details Provider Name:Jesus Monzon ier, 08/15/2025 07:30:00 AM, [address], [address], [place], [place], [phone], Provider Name:Jesus Monzon ier, 07/10/2026 07:00:00 AM, [address] [facility] [address], [address], [place], [place], [phone], Provider Name:Jesus Monzon ier, 07/17/2026 08:00:00 AM, [address] [facility] [address] [facility] [address], [address], [place], [place], [phone], Progress Notes * Becky DIAZ RDOB:11/1954 (70 yo F)Acc No.[id number]:05/23/2025 Patient: Becky [place] :1955 A ge:70 Y S ex:Female Address:[address] [place] [address] * Refills Refill Omeprazole Capsule Delayed Release, 20 MG, Orally, 90, 1 capsule 1/2 to 1 hour before morning meal, Once a day, 90 days, Refills=3 * true * Date: Generated for Vandana mendoza/Stella/Philipitting on: 09/24/2024 07:39 PM EST
--- OUTSIDE RECORDS SUMMARY | 2025-05-30 11:30 | XMS_ITS ---
Author Organization Jesus Malave MD Address [address] [facility] [address] [place] [phone] Care Team Providers Care Chapter Relations Administrator Name Role Phone Jesus Malave Primary Care Provider Allergies No Known Allergies REASON FOR VISIT 4 week Encounters Encounter Location Date Provider Diagnosis Jesus Malave MD 10 [facility] [address] [place] [phone] 05/30/2025 Jesus Malave Plan Of Treatment Next Appt Details Provider Name:Jesus burkett, 08/15/2025 07:30:00 AM, [address] [place] [address], [place] [address], [place], [place], [phone], Provider Name:Jesus burkett, 07/10/2026 07:00:00 AM, [address] [place] [address], [address], [phone], Provider Name:Jesus burkett, 07/17/2026 08:00:00 AM, [address] [place] [address], [address], [place], [phone], Progress Notes * Becky DIAZ RDOB:11/1954 (70 yo F)Acc No.[id number]:05/30/2025 Progress Notes Patient: Becky [place] Provider: Lico Malave MD :1955 A ge:70 Y S ex:Female Date:05/30/2025 Address:[address] [place], [place] [phone] Subjective: * Chief Complaints: * 1 . [...] Lico Malave MD Date: Generated for Vandana mendoza/Stella/Abdizaizsmitting on: 09/24/2024 07:38 PM EST
--- OUTSIDE RECORDS SUMMARY | 2025-06-20 11:30 | XMS_ITS ---
Author Organization Jesus Malave MD Address [address] [facility] [address] [place] [phone] Care Team Providers Care Plasterer Rough Name Role Phone Jesus Malave Primary Care Provider Allergies No Known Allergies REASON FOR VISIT 4 week follow up Encounters Encounter Location Date Provider Diagnosis Jesus Malave MD 10 [facility] [address] [place] [phone] 06/20/2025 Jesus Malave Plan Of Treatment Next Appt Details Provider Name:Jesus burkett, 08/15/2025 07:30:00 AM, [address] [place] [address], [place] [address], [place], [place], [phone], Provider Name:Jesus burkett, 07/10/2026 07:00:00 AM, [address] [place] [address], [place] [address], [place], [place], [phone], Provider Name:Jesus burkett, 07/17/2026 08:00:00 AM, [address] [place] [address], [address], [place], [place], [phone], Progress Notes * Becky DIAZ RDOB:11/1954 (70 yo F)Acc No.[id number]:06/20/2025 Progress Notes Patient: Becky [place] Provider: Lico Malave MD :1955 A ge:70 Y S ex:Female Date:06/20/2025 Address:[address] [place], [place] [phone] Subjective: * Chief Complaints: * 1 . [...] Malave MD Date: 08/20/2024 Generated for Vandana mendoza/Stella/Philipitting on: 09/24/2024 07:40 PM EST
--- OUTSIDE RECORDS SUMMARY | 2025-07-02 03:00 | XMS_ITS ---
Author Organization Jesus Malave MD Address [address] [place], [place] [id number] Care Team Providers Care Cutting Inspector Name Role Phone Jesus Malave Primary Care Provider Results Component Value Reference Range Notes Complete Blood Count Auto Di ff Reviewed date:07/02/2025 01:33:42 PM Interpretation: Performing Lab:[facility], [address] [place] [phone] Notes/Report: White Blood Count 5.9 4.8-10.8 X10*3/uL Red Blood Count 4.70 4.20-5.50 X10*6/uL Hemoglobin 14.2 12.0-16.0 g/dl Hematocrit 43.7 37.0-47.0 % Mean Corpuscular Volume 93.0 80.0-98.0 fL Mean Corpuscular Hemoglobin 30.2 27.0-33.0 pg Mean Corpuscular HGB Conc 32.5 31.0-35.0 g/dl Red Cell Distribution Width 13.5 11.0-16.0 % Platelet Count 259 160-400 X10*3/uL Mean Platelet Volume 9.3 9.4-12.3 fL Neutrophils Percent Auto 65.7 45-73 % Imm Gran Pct Auto 0.3 0.0-0.4 % Lymphocytes Percent Auto 23.9 20-40 % Monocytes Percent Auto 6.5 2-11 % Eosinophils Percent Auto 2.7 0-4 % Basophils Percent Auto 0.9 0-2 % NRBC Pct Auto 0.0 0.0-0.2 /100WBC Neutrophils Absolute Auto 3.9 2.0-8.3 x10*3/u L Imm Gran Abs Auto 0.02 0.00-0.03 X10*3/uL Lymphocytes Absolute Auto 1.4 1.2-4.9 X10*3/u L Monocytes Absolute Auto 0.4 0.1-1.2 X10*3/uL Eosinophils Absolute Auto 0.2 0.0-0.4 X10*3/u L Basophils Absolute Auto 0.1 0.0-0.2 X10*3/uL NRBC Abs Auto 0.000 0.0-0.012 X10*3/uL Comprehensive [place]. Panel Fa st Reviewed date:07/02/2025 12:37:46 PM Interpretation: Performing Lab:[facility], [address] [place] [phone] Notes/Report: Sodium 139 135-145 mmol/L Potassium 3.9 3.3-5.1 mmol/L Chloride 104 96-108 mmol/L Carbon Dioxide 28 22-29 mmol/L Anion Gap 11 12-20 Blood Urea Nitrogen 22 9-16 mg/dL Creatinine 0.92 0.5-1.4 mg/dL Estimated Glomerular Filt Rate > 60 Chronic Kidney Disease: Estimated GFR < 60 mL/min/1.73m2 Severe Kidney Disease: Estimated GFR < 15 mL/min/1.73m2 Glucose Fasting 106 60-99 mg/dL A fasting glucose from 100-125 mg/dl is considered impaired (pre-diabetes). Calcium 8.9 8.4-10.2 mg/dL Bilirubin Total 0.6 0.0-1.0 mg/dL Aspartate Amino Transferase 27 5-31 U/L Alanine Aminotransferase 14 0-31 U/L Total Protein 6.9 6.5-8.0 g/dL Albumin Level 4.4 3.5-5.0 g/dL Alkaline Phosphatase 69 39-117 U/L Lipid Panel Reviewed date:07/02/2025 12:37:04 PM Interpretation: Performing Lab:[facility], [address] [place] [phone] Notes/Report: Triglycerides 63 <150 mg/dL Desirable Triglyceride: less than 150 mg/dL Borderline High Triglyceride 150-199 mg/dL High Triglyceride: 200-499 mg/dL Very High Triglyceride: greater than or equal to 5OO mg/dL Cholesterol 178 <200 mg/dL Desirable Cholesterol: less than 200 mg/dL Borderline High Cholesterol: 200-239 mg/dL High Cholesterol: greater than 239 mg/dL LDL Cholesterol Calculated 96 <100 mg/dL Desirable LDL: less than 100 mg/dL Near Optimal/Above Optimal LDL: 110-129 mg/dL Borderline High LDL: 130-159 mg/dL High LDL: 160-189 mg/dL Very High LDL: greater than or equal to 190 mg/dL HDL Cholesterol 70 >40 mg/dL Desirable HDL: greater than 40 mg/dL Note: This HDL assay may give artificially low results in patients with liver disease. UA ClnCatch+Micro w/rflx Cul t Reviewed date:07/02/2025 12:38:52 PM Interpretation: Performing Lab:[facility], [address] [place] [phone] Notes/Report: Urine, Clean Catch Color Urine Yellow Appearance Urine Cloudy PH 5.5 5.0-9.0 Glucose Urine UA Negative Negative mg/dL Urine Blood Negative Negative Specific [place] - Urine 1.015 1.005-1.025 Urine Protein Negative Neg-Trace mg/dL Urine Ketones Negative Negative mg/dL Nitrite Urine Negative Negative Leukocyte Esterase Urine Large (3+) Negative RBC Urine 0-2 0-2 /HPF WBC Urine 21-50 0-5 /HPF Squamous Epithelial Cell Urine 11-20 0-2 /HPF Bacteria Urine 4+ None Seen Hyaline Casts Urine 0-2 0-2 /LPF REASON FOR VISIT FASTING LABS Encounters Encounter Location Date Provider Diagnosis Jesus Malave MD [address] [place], [place] [id number] 07/02/2025 Jesus Malave Blood tests for routine general physical examination Z00.00 Assessments Encounter Date Diagnosis (ICD Code) Assessment Notes Treatment Notes Treatment Clinical Notes Section Notes 07/02/2025 Blood tests for routine general physical examination (ICD-10 - Z00.00) Plan Of Treatment Next Appt Details Provider Name:Jesus Monzon quintinr, 08/15/2025 07:30:00 AM, [address] [facility], Suite [facility], [place], [place], [id number], Provider Name:Jesus Monzon ier, 07/10/2026 07:00:00 AM, [address], [address], [place], [place], [phone], Provider Name:Jesus Monzon ier, 07/17/2026 08:00:00 AM, [address] [place] [address], Suite [facility], [place], [place], [phone], Progress Notes * Becky DIAZ RDOB:11/1954 (70 yo F)Acc No.[id number]:07/02/2025 Progress Note Patient: Becky SLATER Provider: Lico Malave MD :1955 A ge:70 Y S ex:Female Date:07/02/2025 Address:[address] [place], [place] [id number] Subjective: * Chief Complaints: * 1 . FASTING LABS. * Medical History: Objective: * Vitals: Assessment: * Assessment: 1. B lood tests for routine general physical examination - Z00.00 (Primary) Plan: * Treatment: * Procedure Codes: 3 6415 VENIPUNCT, ROUTINE* * * The named appointment provid er may or may not be the originator of this progress note, and it is not deemed complete until electronically signed by the appointment provider. Sign off status: Pending * Provider: Lico Malave MD Date: 09/01/2024 Generated for Vandana mendoza/Stella/Philipitting on: 09/24/2024 07:39 PM EST
--- OUTSIDE RECORDS SUMMARY | 2025-07-11 02:30 | XMS_ITS ---
Author Organization Jesus Malave MD Address [address] [place], [place] [id number] Care Team Providers Care Neuroradiologist Name Role Phone Jesus Malave Primary Care Provider [phone] Allergies No Known Allergies REASON FOR VISIT ANNUAL EXAM, c/o worsening SOB Medications Medication SIG (Take, Route, Frequency, Duration) Notes Start Date End Date Status HYDROcodone-Acetaminophen 5-325 MG 1 tablet as needed Orally every 6 hrs as needed for 30 days 08/17/2022 Not-Taking dexAMETHasone 4 MG 1 tablet Orally 3 times a day for 10 days 03/14/2025 Not-Taking ProAir HFA 108 (90 Base) MCG/ACT 2 puffs as needed Inhalation every 6 hrs for 30 days 11/22/2018 Not-Taking Zolpidem Tartrate 10 MG 1 tablet at bedt maxime as needed Orally Once a day as needed 05/29/2018 Not-Taking Ambien 5 MG 1 tablet at bedtime Orally Once a day for 14 days 06/25/2022 Not-Taking Omeprazole 20 MG 1 capsule 1/2 to 1 hour before morning meal Orally Once a day for 90 days 03/29/2025 Active Amoxicillin 500 MG 2 capsules Orally 1 hour before dental work for 1 days 04/07/2021 Active Celecoxib 200 MG TAKE ONE CAPSULE BY MOUTH EVERY DAY WITH FOOD for 90 Active medroxyPROGESTERone Acetate 2.5 MG TAKE ONE TABLET BY MOUTH EVERY DAY WITH FOOD for 90 Active Fiber - as directed Orally N ot-Taking Vitamin D (Cholecalciferol) 50 MCG (2000 UT) 2 capsules Orally Once a day Active Albuterol Sulfate HFA 108 (9 0 Base) MCG/ACT 1 puff as needed Inhalation every 4 hrs for 30 days 07/04/2023 Not-Taking Estradiol 0.5 MG 1 tablet Orally Once a day for 90 days Active Aspir-81 81 MG 1 tablet Orally Once a day for 30 day(s) Active Social History Tobacco Use: Social History Observation [...] ast year? No Points 0 Interpretation Negative Vital Signs Blood pressure systolic 142 mm Hg 07/11/20 25 Blood pressure diastolic 80 mm Hg 025 Height 62.25 in 07/11/2025 Weight 203 lbs 07/11/2025 BMI 36.83 kg/m2 07/11/2025 Encounters Encounter Location Date Provider Diagnosis Jesus Malave MD 10 [facility] [address] [place] [phone] 07/11/2025 Jesus Malave Adult general medical exam Z00.00 ; Shortness of breath R06.02 ; Heartburn R12 ; Pre-diabetes R73.09 and Depression screen Z13.31 Assessments Encounter Date Diagnosis (ICD Code) Assessment Notes Treatment Notes Treatment Clinical Notes Section Notes 07/11/2025 Adult general medical exam (ICD-10 - Z00.00) labs reviewed and discussed with patient 07/11/2025 Shortness of breath (ICD-10 - R06.02) XRAY ORDER GIVEN TO PATIENT, pending diagnostic testing Order faxed to [facility] Patient Reg. 07/11/2025 Heartburn (ICD-10 - R12) has gone away with omeprazole, will continue current regiment 07/11/2025 Pre-diabetes (ICD-10 - R73.09) would be a candidate for mounjouror 07/11/2025 Depression screen (ICD-10 - Z13.31) negative screen Plan Of Treatment Treatment Notes Assessment Notes Adult general medical exam labs reviewed and discussed with patient Shortness of breath XRAY ORDER GIVEN TO PATIENT, pending diagnostic testing Order faxed to [facility] Patient Reg. Heartburn has gone away with o meprazole, will continue current regiment Pre-diabetes would be a candidate for mounjouror Depression screen negative screen Pending Test Test Name Order Date XR CHEST 2 VIEW PA & LAT 07/11/2025 Carboxyhemoglobin 07/11/2025 Next Appt Details Follow Up: 3 Weeks, Reason: Provider Name:Jesus burkett, 08/15/2025 07:30:00 AM, [address] [place] [address], [address], [phone], Provider Name:Jesus burkett, 07/10/2026 07:00:00 AM, [address] [place] [address], [facility], [place], [place], [phone], Provider Name:Jeuss burkett, 07/17/2026 08:00:00 AM, [address] [place] [address], [address] [facility], [place], [place], [phone], Progress Notes * Becky DIAZ RDOB:11/1954 (70 yo F)Acc No.[id number]:07/11/2025 Progress Notes Patient: Becky SLATER Provider: Lico Malave MD :1955 A ge:70 Y S ex:Female Date:07/11/2025 Address:[address] [place], [place] [phone] Subjective: * Chief Complaints: * A NNUAL EXAMc/o worsening SOB * HPI: D epression Screening: PHQ-9 L ittle interest or pleasure in doing things N ot at all, F eeling down, depressed, or hopeless N ot at all, T rouble falling or staying asleep, or sleeping too much N ot at all, F eeling tired or having little energy N ot at all, P oor appetite or overeating N ot at all, F eeling bad about yourself or that you are a failure, or have let yourself or your family down N ot at all, T rouble concentrating on things, such as reading the newspaper or watching television N ot at all, M oving or speaking so slowly that other people could have noticed; or the opposite, being so fidgety or restless that you have been moving around a lot more than usual N ot at all, T houghts that you would be better off or of hurting yourself in some way N ot at all, T otal Score 0 . I nterpretation and Intervention D epression Screening Findings N egative, F ollow-Up for Depression : review of PHQ-9 found negative result, no follow-up needed. C ommunication Needs: Communication Needs D oes the patient have a hearing impairment N o, D oes the patient have a vision impairment? Y es, I f yes, what is the vision impairment? G lasses, D oes the patient have a cognition impairment? N o. F all Risk: History H ave you had any falls with injury in the past year? N o, H ave you had two or more falls in the past year? N o. S LUI Questions: SDOH Questions I n the past year have you been worried about losing housing? N o, I n the past year have you or any family members you live with been unable to get any of the following when it was really needed? Check all that apply: N one. S ymptom(s): patient is a 70 yo female here for annual visit with review of recent labs and follow up of chronic issues. * ROS: G eneral/Constitutional: Change in appetite d enies. C hills d enies. F ever d enies. O phthalmologic: Blurred vision d enies. D ischarge d enies. P ain d enies. E NT: Decreased hearing d enies. S ore throat d enies.?Swollen glands d enies. E ndocrine: Cold intolerance d enies. E xcessive thirst d enies. H eat intolerance d enies. W eight loss d enies. R espiratory: Cough d enies. S hortness of breath at rest d enies. S hortness of breath with exertion d enies. W heezing d enies. C ardiovascular: Chest pain at rest d enies. C hest pain with exertion?denies. I rregular heartbeat d enies. S hortness of breath d enies. ? G astrointestinal: Abdominal pain d enies. C hange in bowel habits d enies. D iarrhea d enies. N ausea d enies. R ectal bleeding d enies. V omiting d enies . G enitourinary: Blood in urine d enies. D ifficulty urinating d enies. F requent urination d enies. U rinary incontinence D enies. M usculoskeletal: Painful joints d enies. W eakness d enies. ? S kin: Dry skin d enies. I tching d enies. D enies?Mole(s), changes in moles, new moles or any lesions of concern. D enies P hotosensitivity. R ana d enies. N eurologic: Dizziness d enies. F ainting d enies. H eadache?denies. * Medical History: * Surgical History: * Hospitalization/Major Diagno stic Procedure: * Family History: F ather: 77 yrs, lung cancer, diagnosed with Hypertension, Diabetes, COPD. M other: 91 yrs, hypertension, asthma, arthritis, diagnosed with Asthma, Hypertension, COPD. D aughter(s): alive. S iblings: alive. 1 brother(s) - healthy. 2 daughter(s) - healthy. .? Father - lung and kidney cancer; 5 grandchildren - all healthy No family hx of drug or mental illness., Denies mental health/substance abuse family history, No pertinent family medical history, No pertinent family medical history. * Social History: T obacco Use: T obacco Use/Smoking P atient is a n onsmoker, A dditional Findings: Tobacco Non-User C urrent non-smoker, currently using no form of tobacco. D rugs/Alcohol: A lcohol Screen D id you have a drink containing alcohol in the past year? N o, P oints 0 , I nterpretation N egative. M iscellaneous: C affeine: no. Children: yes, two daughters. Community involvements: yes, [employer] and [employer]. Domestic violence: no. Exercise: yes, once a week half hour walks and cardio 3 days a week. Home smoke detector use: yes. Housing: owning. Legal problems: no. Living with: family. Marital status: . Occupation: retired. Pets: none. Sexual abuse: no. Sexually active: no. Verbal abuse: no. * Medications: T akingVitamin D (Cholecalciferol) 50 MCG (2000 UT) Capsule 2 capsules Orally Once a day Aspir-81 81 MG Tablet Delayed Release 1 tablet Orally Once a day Estradiol 0.5 MG Tablet 1 tablet Orally Once a day medroxyPROGESTERone Acetate 2.5 MG Tablet TAKE ONE TABLET BY MOUTH EVERY DAY WITH FOOD Celecoxib 200 MG Capsule TAKE ONE CAPSULE BY MOUTH EVERY DAY WITH FOOD Amoxicillin 500 MG Capsule 2 capsules Orally 1 hour before dental work Omeprazole 20 MG Capsule Delayed Release 1 capsule 1/2 to 1 hour before morning meal Orally Once a day Taking Vitamin D (Cholecalciferol) 50 MCG (2000 UT) Capsule 2 capsules Orally Once a day Taking Aspir-81 81 MG Tablet Delayed Release 1 tablet Orally Once a day Taking Estradiol 0.5 MG Tablet 1 tablet Orally Once a day Taking medroxyPROGESTERone Acetate 2.5 MG Tablet TAKE ONE TABLET BY MOUTH EVERY DAY WITH FOOD Taking Celecoxib 200 MG Capsule TAKE ONE CAPSULE BY MOUTH EVERY DAY WITH FOOD Taking Amoxicillin 500 MG Capsule 2 capsules Orally 1 hour before dental work Taking Omeprazole 20 MG Capsule Delayed Release 1 capsule 1/2 to 1 hour before morning meal Orally Once a day Not-Taking/PRNAlbuterol Sulfate HFA 108 (90 Base) MCG/ACT Aerosol Solution 1 puff as needed Inhalation every 4 hrs Fiber - Tablet as directed Orally dexAMETHasone 4 [...] List reviewed and reconciled with the patientNot-Taking/PRN Albuterol Sulfate HFA 108 (90 Base) MCG/ACT Aerosol Solution 1 puff as needed Inhalation every 4 hrs Not-Taking/PRN Fiber - Tablet as directed [...] Vitals: H t: 62.25, Wt: 203, BMI:36.83, BP:142/80, Wt-k.08. * P ast Orders: L ab:Complete Blood Count Auto Diff (Order Date - 07/02/2025) (Collection Date & Time - 07/02/2025 08:00 AM) Value Reference Range White Blood Count 5.9 4.8-10.8 - X10*3/uL Red Blood Count 4.70 4.20-5.50 - X10*6/uL Hemoglobin 14.2 12.0-16.0 - g/dl Hematocrit 43.7 37.0-47.0 - % Mean Corpuscular Volume 93.0 80.0-98.0 - fL Mean Corpuscular Hemoglobin 30.2 27.0-33.0 - pg Mean Corpuscular HGB Conc 32.5 31.0-35.0 - g/ dl Red Cell Distribution Width 13.5 11.0-16.0 - % Platelet Count 259 160-400 - X10*3/uL Mean Platelet Volume 9.3 L 9.4-12.3 - fL Neutrophils Percent Auto 65.7 45-73 - % Imm Gran Pct Auto 0.3 0.0-0.4 - % Lymphocytes Percent Auto 23.9 20-40 - % Monocytes Percent Auto 6.5 2-11 - % Eosinophils Percent Auto 2.7 0-4 - % Basophils Percent Auto 0.9 0-2 - % NRBC Pct Auto 0.0 0.0-0.2 - /100WBC Neutrophils Absolute Auto 3.9 2.0-8.3 - x10* 3/uL Imm Gran Abs Auto 0.02 0.00-0.03 - X10*3/uL Lymphocytes Absolute Auto 1.4 1.2-4.9 - X10* 3/uL Monocytes Absolute Auto 0.4 0.1-1.2 - X10*3/ uL Eosinophils Absolute Auto 0.2 0.0-0.4 - X10* 3/uL Basophils Absolute Auto 0.1 0.0-0.2 - X10*3/ uL NRBC Abs Auto 0.000 0.0-0.012 - X10*3/uL L ab:Comprehensive [place]. Panel Fast (Order Date - 07/02/2025) (Collection Date & Time - 07/02/2025 08:00 AM) Value Reference Range Sodium 139 135-145 - mmol/L Bilirubin Total 0.6 0.0-1.0 - mg/dL Aspartate Amino Transferase 27 5-31 - U/L Alanine Aminotransferase 14 0-31 - U/L Total Protein 6.9 6.5-8.0 - g/dL Albumin Level 4.4 3.5-5.0 - g/dL Alkaline Phosphatase 69 39-117 - U/L Potassium 3.9 3.3-5.1 - mmol/L Chloride 104 96-108 - mmol/L Carbon Dioxide 28 22-29 - mmol/L Anion Gap 11 L 12-20 - Blood Urea Nitrogen 22 H 9-16 - mg/dL Creatinine 0.92 0.5-1.4 - mg/dL Estimated Glomerular Filt Rate > 60 - Glucose Fasting 106 H 60-99 - mg/dL Calcium 8.9 8.4-10.2 - mg/dL L ab:Lipid Panel (Order Date - 07/02/2025) (Collection Date & Time - 07/02/2025 08:00 AM) Value Reference Range Triglycerides 63 <150 - mg/dL Cholesterol 178 <200 - mg/dL LDL Cholesterol Calculated 96 <100 - mg/dL HDL Cholesterol 70 >40 - mg/dL L ab:UA ClnCatch+Micro w/rflx Cult (Order Date - 07/02/2025) (Collection Date & Time - 07/02/2025 08:00 AM) Value Reference Range Color Urine Yellow - Appearance Urine Cloudy - PH 5.5 5.0-9.0 - Glucose Urine UA Negative Negative - mg/dL Urine Blood Negative Negative - Specific [place] - Urine 1.015 1.005-1.025 - Urine Protein Negative Neg-Trace - mg/dL Urine Ketones Negative Negative - mg/dL Nitrite Urine Negative Negative - Leukocyte Esterase Urine Large (3+) A Negative - RBC Urine 0-2 0-2 - /HPF WBC Urine 21-50 A 0-5 - /HPF Squamous Epithelial Cell Urine 11-20 0-2 - /HP F Bacteria Urine 4+ None Seen - Hyaline Casts Urine 0-2 0-2 - /LPF * Examination: G eneral Examination: GENERAL APPEARANCE: w ell developed, well nourished, in no acute distress. HEAD: n ormocephalic, atraumatic. EYES: p upils equal, round, reactive to light and accommodation, sclera non-icteric. EARS: n ormal. ORAL CAVITY: m ucosa moist. THROAT: c lear. NECK/THYROID: n robert supple, full range of motion, no cervical lymphadenopathy, no bruits. SKIN: w arm and dry, no suspicious lesions. HEART: r egular rate and rhythm, S1, S2 normal, no murmurs.? LUNGS: c lear to auscultation bilaterally. BREASTS: d one by obstetrician/gynecologist. ABDOMEN: s oft, nontender, nondistended, bowel sounds present, normal, no organomegaly , no masses palpable. RECTAL EXAM: d one by obstetrician/gynecologist. FEMALE GENITOURINARY: d one by obstetrician/gynecologist. EXTREMITIES: n o clubbing, cyanosis, or edema. NEUROLOGIC: n onfocal, motor strength normal upper and lower extremities, sensory exam intact. Assessment: * Assessment: 1. A dult general medical exam - Z00.00 (Primary) 2 . S hortness of breath - R06.02 3 . H eartburn - R12 4 . P re-diabetes - R73.09? 5. D epression screen - Z13.31 Plan: * Treatment: 2. S hortness of breath L AB: Carboxyhemoglobin I maging: XR CHEST 2 VIEW PA & LAT Notes: XRAY ORDER GIVEN TO PATIENT, pending diagnostic testing Order faxed to [facility] Patient Reg. 3. H eartburn Notes: has gone away with omeprazole, will continue current regiment 4. P re-diabetes Notes: would be a candidate for mounjouror 5. D epression screen Notes: negative screen * Procedure Codes: * Preventive Medicine: Counseling: C are goal follow-up plan: C ounseling for abnormal BMI provided?Yes, A fany Normal BMI Follow-up G iving encouragement to exercise. * Follow Up: 3 Weeks * * Sign off status: Completed true * Provider: Lico Malave MD Date: 09/11/2024 Generated for Vandana mendoza/Stella/Nadja on: 09/24/2024 07:39 PM EST History and Physical Notes * HPI (History of Present Illness) Category Sub-Category Detail Notes Category Not es Symptom(s) patient is a 70 yo female here for annual visit with review of recent labs and follow up of chronic issues Depression Screening PHQ-9 Little inte rest or pleasure in doing things: Not at all Feeling down, depressed, or hopeless: No t at all Trouble falling or staying asleep, or sl eeping too much: Not at all Feeling tired or having little energy: N ot at all Poor appetite or overeating: Not at all Feeling bad about yourself o r that you are a failure, or have let yourself or your family down: Not at all Trouble concentrating on thi ngs, such as reading the newspaper or watching television: Not at all Moving or speaking so slowly that other people could have noticed; or the opposite, being so fidgety or restless that you have been moving around a lot more than usual: Not at all Thoughts that you would be b lali off or of hurting yourself in some way: Not at all Total Score: 0 Interpretation and Intervention Depression Kristinae jose Findings: Negative Follow-Up for Depression: : review of PH Q-9 found negative result, no follow-up needed SDOH Questions SDOH Questions In the past year have you been worried about losing housing?: No In the past year have you or any family members you live with been unable to get any of the following when it was really needed? Check all that apply:: None Fall Risk History Have you had any falls with injury i n the past year?: No Have you had two or more falls in the year?: No Communication Needs Communication Needs Does the patient have a hearing impairment: No Does the patient have a vision impairmen t?: Yes If yes, what is the vision impairment?: Glasses Does the patient have a cognition impair ment?: No Examination Category Sub-Category Detail Notes Category Not es General Examination GENERAL APPEARANCE: well dev eloped, well nourished, in no acute distress HEAD: normocephalic, atrau matic EYES: pupils equal, round, reactive to light and accommodation, sclera non-icteric EARS: normal THROAT: clear NECK/THYROID: neck supple, full ra nge of motion, no cervical lymphadenopathy, no bruits HEART: regular rate and rhy thm, S1, S2 normal, no murmurs LUNGS: clear to auscultatio n bilaterally ABDOMEN: soft, nontender, non distended, bowel sounds present, normal, no organomegaly , no masses palpable NEUROLOGIC: nonfocal, motor stre ngth normal upper and lower extremities, sensory exam intact SKIN: warm and dry, no marian picious lesions EXTREMITIES: no clubbing, cyanosi s, or edema BREASTS: done by obstetrician/gynecologist RECTAL EXAM: done by obstetrician/gynecologist FEMALE GENITOURINARY: done by obstetrician/gynecologist ORAL CAVITY: mucosa moist
--- OUTSIDE RECORDS SUMMARY | 2025-07-12 08:29 | XMS_ITS ---
Author Organization Jesus Malave MD Address [address] [place] [phone] Care Team Providers Care Flitch Hanger Name Role Phone Jesus Malave Primary Care Provider REASON FOR VISIT order Ct chest Encounters Encounter Location Date Provider Diagnosis Jesus Malave MD [address] [place] [phone] 07/12/2025 Jesus Malave Other diseases of bronchus, not elsewhere classified J98.09 Assessments Encounter Date Diagnosis (ICD Code) Assessment Notes Treatment Notes Treatment Clinical Notes Section Notes 07/12/2025 Other diseases of bronchus, not elsewhere classified (ICD-10 - J98.09) Plan Of Treatment Pending Test Test Name Order Date CT CHEST NO CONTRAST 07/12/2025 Next Appt Details Provider Name:Jesus burkett, 08/15/2025 07:30:00 AM, [address], [address], [place], [place], [phone], Provider Name:Jesus burkett, 07/10/2026 07:00:00 AM, [address], [address], [place], [place], [phone], Provider Name:Jesus Monzon ier, 07/17/2026 08:00:00 AM, [address], [address], [place], [place], [phone], Progress Notes * Becky DIAZ RDOB:11/1954 (70 yo F)Acc No.[id number]:07/12/2025 Patient: Sajan SLATERine Jaiden :1955 A ge:70 Y S ex:Female Address:[address] [place] [id number] Subjective: * Chief Complaints: * o rder Ct chest * Medical History: * Surgical History: * Hospitalization/Major Diagno stic Procedure: * Medications: Objective: * Vitals: * Physical Examination: Assessment: * Assessment: 1. O ther diseases of bronchus, not elsewhere classified - J98.09 Plan: * Treatment: * Procedure Codes: * true * Date: Generated for Vandana mendoza/Stella/Abdiazizsmitting on: 09/24/2024 07:38 PM EST
--- NOTE | 2025-07-24 14:46 | CA_ITS ---
Transthoracic Echocardiogram Patient (Last, First, Middle): Becky Rios R Gender: Female Date of : 1955 Age: 70 Procedure Date: 07/24/2025 Procedure Type: Transthoracic Echocardiogram Location: OP Height: 157.48 cm Weight: 91.17 kg BSA: 1.92 m2 Heart Rate: 60 bpm BP: 120 / 68 mmHg Air Turning Machine Feeder: LENA Referring MD: Louis Brooks MD [facility] Coordinator: Jameel Cordoba MD Symptoms: I35.0 - Nonrheumatic aortic (valve) stenosis Study Quality: Adequate ECG Rhythm: Sinus Conclusions: - 1. Normal LV ejection fraction of 60 65% with impaired relaxation filling pattern 2. Vtno-wb-rkpzstxx aortic stenosis with mild aortic regurgitation in his known bicuspid aortic valve 3. Mildly dilated ascending aorta 4. No gross pericardial effusion Findings Left Ventricle Normal left ventricular size, thickness, and systolic function. The visually estimated ejection fraction is between 60-65%. Spectral Doppler is indicative of an impaired relaxation filling pattern. E/E prime ratio is between 8 and 15 consistent with indeterminate filling pressures. Atria Both atria are normal in size. There is no evidence of interatrial shunt. Aortic Valve There is a bicuspid aortic valve. There is moderate calcification of the aortic valve. There is mild to moderate aortic valve stenosis. The peak aortic gradient is 21 mmHg.The mean gradient is 12 mmHg. The aortic valve area is 1.19 cm2. There is mild aortic valve regurgitation. Mitral Valve There is mild anterior and posterior mitral leaflet thickening. There is mild mitral annular calcification. There is trace mitral valve regurgitation. There is no mitral valve stenosis. Pulmonic Valve The pulmonic valve is likely normal. Tricuspid Valve Likely normal tricuspid valve structure and function. Tricuspid regurgitation envelope is inadequate for calculation of right ventricular systolic pressure. Normal right atrial pressure. Great Vessels The pulmonary artery was not well visualized. There is mild dilatation of the ascending aorta measuring 4.10 cm. Venous The inferior vena cava is normal in size and collapses greater than 50% with inspiration. Pericardium/Pleural There is no evidence of pericardial effusion. Prior Study Comparison No significant change compared to prior study dated: 08/24/2024. Measurements 2D Linear Measurements IVSd: 0.95 0.6-0.9/0.6-1.0 cm LVIDd: 4.64 3.9-5.3/4.2-5.9 cm LVIDd Index: 2.42 2.4-3.2/2.2-3.1 cm/m2 LVIDs: 3.31 2.0-3.6 cm LVPWd: 0.82 0.7-1.1 cm LA Diam: 3.70 2.7-3.8/3.0-4.0 cm LAIDs Index: 1.93 1.5-2.3 cm/m2 LV Mass: 170.27 67-162/88-224 g LV Mass Index: 88.68 43-95/49-115 g/m2 LVOT Diam: 2.10 3.0+(-)1.3 cm 2D Systolic Function EF 4C: 62.90 >55% EF 2C: 65.60 >55% EF BiP: 62.30 >55% Mitral Valve MV Pk E: 0.75 MV PK A: 0.67 MV Decel Time: 216.00 E/A: 1.10 E'Lateral: 6.31 E'Medial: 5.55 E/E' Med: 13.50 E/E' Lat: 11.90 PHT: 63.00 MVA PHT: 3.49 Decel Catron: 3.47 Aortic Valve AoV Pk [place]: 2.29 AoV Mn [place]: 1.61 AoV VTI: 0.56 AoV Pk Grad: 21.00 Aov Mn Grad: 12.00 JENNIFER Cont.VTI: 1.19 AI Pk [place]: 3.47 AI Catron: 1.89 LVOT LVOT Pk [place]: 0.80 LVOT Mn [place]: 0.54 LVOT VTI: 0.19 LVOT Pk Grad: 3.00 LVOT Mn Grad: 1.00 LVOT Diam: 2.10 LVOT Area: 3.46 Diastolic Function MV Pk E: 0.75 MV Pk A: 0.67 E/A: 1.10 E'Medial: 5.55 E/E' Med: 13.50 E' Laterial: 6.31 E/E' Lat: 11.90 Right Ventricle TAPSE (mm): 22.20 TVS' [place]: 10.30 Great Vessels Aorta Sinus of Valsalva: 2.90 2.0-3.5 cm Ao Asc: 4.10 2.1-3.4 cm Ao Arch: 3.20 Pulmonary Veins Pulm Vein S/D 1.90 Pulmonary Valve PV Pk [place]: 0.96 Peak PV Grad: 4.00 Updated in Other Vendor System with Status of Final Jameel Cordoba MD electronically signed on 07/25/2025 4:11:26 PM with status of Final
--- OUTSIDE RECORDS SUMMARY | 2025-07-24 19:38 | XMS_ITS | Patient Health Record ---
Author Organization Jesus Malave MD Address [address] [place], [place] [id number] Care Team Providers Care Suture Gauger Name Role Phone Jesus Malave Primary Care Provider [phone] Allergies No Known Allergies Results Component Value Reference Range Notes Complete Blood Count Auto Di ff Reviewed date:07/26/2024 12:23:24 PM Interpretation: Performing Lab:[facility], [address] [place] [phone] Notes/Report: White Blood Count 4.4 4.8-10.8 X10*3/uL [...] NRBC Abs Auto 0.000 0.0-0.012 X10*3/uL Comprehensive [facility]. Panel Fa st Reviewed date:07/26/2024 12:25:21 PM Interpretation: Performing Lab:[facility], [address] [place] [phone] Notes/Report: Sodium 142 135-145 mmol/L Potassium 3.9 [...] Panel Reviewed date:07/26/2024 12:17:17 PM Interpretation: Performing Lab:[facility], [address] [place] [phone] Notes/Report: Triglycerides 50 <150 mg/dL Desirable Triglyceride: [...] t Reviewed date:07/26/2024 12:25:03 PM Interpretation: Performing Lab:[facility], [address] [place] [phone] Notes/Report: Urine, Clean Catch Color Urine Yellow Appearance Urine Cloudy PH 6.0 5.0-9.0 Glucose Urine UA Negative Negative mg/dL Urine Blood Negative Negative Specific [place] - Urine 1.020 1.005-1.025 Urine Protein Negative [...] ff Reviewed date:07/02/2025 01:33:42 PM Interpretation: Performing Lab:[facility], [address] [place] [phone] Notes/Report: White Blood Count 5.9 4.8-10.8 X10*3/uL [...] NRBC Abs Auto 0.000 0.0-0.012 X10*3/uL Comprehensive [facility]. Panel Fa st Reviewed date:07/02/2025 12:37:46 PM Interpretation: Performing Lab:[facility], [address] [place] [phone] Notes/Report: Sodium 139 135-145 mmol/L Potassium 3.9 [...] Panel Reviewed date:07/02/2025 12:37:04 PM Interpretation: Performing Lab:[facility], [address] [place] [phone] Notes/Report: Triglycerides 63 <150 mg/dL Desirable Triglyceride: [...] t Reviewed date:07/02/2025 12:38:52 PM Interpretation: Performing Lab:[facility], [address] [place] [phone] Notes/Report: Urine, Clean Catch Color Urine Yellow Appearance Urine Cloudy PH 5.5 5.0-9.0 Glucose Urine UA Negative Negative mg/dL Urine Blood Negative Negative Specific [place] - Urine 1.015 1.005-1.025 Urine Protein Negative [...] ff Reviewed date:03/29/2025 04:04:52 PM Interpretation: Performing Lab:[facility], [address] [place] [phone] Notes/Report: White Blood Count 7.4 4.8-10.8 X10*3/uL [...] NRBC Abs Auto 0.000 0.0-0.012 X10*3/uL Comprehensive [facility]. Panel Fa st Reviewed date:03/31/2025 03:19:55 PM Interpretation: Performing Lab:[facility], [address] [place] [phone] Notes/Report: Sodium 140 135-145 mmol/L Potassium 4.0 [...] T4 Reviewed date:03/31/2025 03:19:34 PM Interpretation: Performing Lab:[facility], [address] [place] [phone] Notes/Report: TSH reflex Free T4 3.45 0.32-4.0 uIU/mL Caesar Madsen Reviewed date:07/26/2024 12:16:59 PM Interpretation: Performing Lab:[facility], [address] [place] [phone] Notes/Report: Caesar Madsen See Note Specimen held untested for 24 hours; Call to request Chemistry testing. Urine Culture Reviewed date:07/27/2024 04:37:35 PM Interpretation: Performing Lab:[facility], [address] [place] [phone] Notes/Report: Urine Culture No growth. Caesar Madsen Reviewed date:03/29/2025 04:03:58 PM Interpretation: Performing Lab:[facility], [address] [place] [phone] Notes/Report: Caesar Madsen See Note Specimen held untested for 24 hours; Call to request Chemistry testing. Caesar Madsen Reviewed date:07/02/2025 12:37:11 PM Interpretation: Performing Lab:[facility], [address] [place] [phone] Notes/Report: Hold Gold See Note Specimen held untested for 24 hours; Call to request Chemistry testing. Urine Culture Reviewed date:07/03/2025 05:05:15 PM Interpretation: Performing Lab:[facility], [address] [place] [phone] Notes/Report: Urine Culture Report Result Urine Culture 10,000 to 50,000 cfu/ml Urine Culture Mixed bacterial darrick a characteristic of Urine Culture urogenital contamination. Other Ref Test - Misc Reviewed date:07/22/2025 08:28:38 AM Interpretation: Performing Lab:[facility], [address] [place] [phone] Notes/Report: Carboxyhemoglobin, Blood Other Ref Test - Misc SEE NOTE CARBOXYHEMOGLOBIN, BLOOD Analyte Value Reference Range CARBOXYHEMOGLOBIN, BLOOD (20916-0) 3 %TOTAL HGB Nonsmoker: <2 % of Total HgB Average Smoker: 4-5 % of Total HgB Heavy Smoker: 8-12 % of Total HgB Potentially Toxic: >15 % of Total HgB Performing Sites [facility] [employer] [facility], [address], [place] [address] Visual Merchandising Coordinator: Abdias Weeks M.D.,PhD XR chest 2V Reviewed date:07/12/2025 01:41:42 PM Interpretation: Performing Lab: Notes/Report: [address] [address] XRay Report Signed Patient: Becky Rios MR#: [id number] : 1955 Acct:[id number] Age/Sex: 70 / F ADM Date: 07/11/25 Loc: [facility] Attending Dr: Jesus Malave MD Ordering Physician: Jesus Malave MD Date of Service: 07/11/25 Procedure(s): XR chest 2V Accession Number(s): [id number] cc: Jesus Malave MD Reason for Exam: SOB EXAMINATION: XR CHEST CLINICAL INFORMATION: SOB COMPARISON: X-ray 07/27/2022 TECHNIQUE: 2 views of the chest were obtained. FINDINGS: The cardiomediastinal silhouette is within normal limits. Mild right hemidiaphragm elevation.. There is peribronchial thickening, hazy opacities in the right lower lung. No effusion. No pneumothorax. . No pneumothorax. Thoracolumbar spondylosis. XR/XR chest 2V IMPRESSION: Right lower lung peribronchial thickening/hazy opacities, can be seen with inflammatory/infectious process. Electronically signed by: Kristopher Dowd MD 07/12/2025 07:32 AM EST RP Dictated By: Kristopher Dowd MD Signed By: <Electronically signed by Kristopher Dowd MD in OV> 07/12/25 0732 DD/ 09 TD/TT: 07/11/25 1411 [employer]: [place] [address] XRay Report Signed Patient: Becky Rios MR#: [id number] : 1955 Acct:[id number] Age/Sex: 70 / F ADM Date: 07/11/25 Loc: HO.XRAY Attending Dr: Jesus Malave MD Ordering Physician: Jesus Malave MD Date of Service: 07/11/25 Procedure(s): XR chest 2V Accession Number(s): [id number] cc: Jesus Malave MD Reason for Exam: SOB EXAMINATION: XR CHEST CLINICAL INFORMATION: SOB COMPARISON: X-ray 07/27/2022 TECHNIQUE: 2 views of the chest were obtained. FINDINGS: The cardiomediastina l silhouette is within normal limits. Mild right hemidiaphragm elevat ion.. There is peribronchial thickening, hazy opacities in the rig ht lower lung. No effusion. No pneumothorax. . No pneumothorax. Thoracolumbar spondylosis. X R/XR chest 2V IMPRESSION: Right lower lung peribronchial thickening/hazy opacities, can be seen with inflammatory/infectious process. Electronically constance d by: Kristopher Dowd MD 07/12/2025 07:32 AM EST RP Dictated By: Kristopher Dowd MD Signed By: <Electronically signed by Kristopher Dowd MD in OV> 07/12/25 0732 DD/ 09 TD/TT: 07/11/25 141 [employer]: JUAN Reason For Referral Reason shortness of breath Diagnosis 1 Shortness of breath (R06.02) Referral Organization Jesus Malave MD Referring Provider First Name Jesus Referring Provider Last Name Frieda Referring Provider Speciality Internal edicine Referred Provider KENY GUNTER Referred Provider Specialty Cardiology General Notes Libra Portillo 1 08:48:28 AM >patient is aware of appt, Latricia Woods 06/17/2025 03:08:17 PM >OFFICE NOTE RECD Referral Priority Routine Referral Appointment Date 05/22/2025 Reason Shortness of breath looking for a urgent appt Diagnosis 1 Shortness of breath (R06.02) Referral Organization Jesus Malave MD Referring Provider First Name Jesus Referring Provider Last Name Frieda Referring Provider Speciality Internal edicine Referred Provider MATTEO NGUYEN Referred Provider Specialty Pulmonary Di seases General Notes Libra Portillo 1 09/18/2024 09:14:46 AM >referral info faxed, appt will be with Piedad at [address] [place] [address], Libra Portillo 07/18/2025 01:00:06 PM > called patient with appt and mailed Referral Priority Routine Referral Appointment Date 08/13/2025 Medications Medication SIG (Take, Route, Frequency, Duration) [...] 2 capsules Orally Once a day Active HYDROcodone-Acetaminophen 5-325 MG 1 tablet as needed Orally every 6 hrs as needed for 30 days 08/17/2022 Not-Taking dexAMETHasone 4 MG 1 tablet Orally 3 times a day for 10 days 03/14/2025 Not-Taking Fiber - as directed Orally N ot-Taking Albuterol Sulfate HFA 108 (9 0 Base) MCG/ACT 1 puff as needed Inhalation every 4 hrs for 30 days 07/04/2023 Not-Taking Estradiol 0.5 MG 1 tablet Orally Once a day for 90 days Active ProAir HFA 108 (90 Base) MCG/ACT 2 puffs as needed Inhalation every 6 hrs for 30 days 11/22/2018 Not-Taking Aspir-81 81 MG 1 tablet Orally Once a day for 30 day(s) Active Zolpidem Tartrate 10 MG 1 tablet at bedt maxime as needed Orally Once a day as needed 05/29/2018 Not-Taking Ambien 5 MG 1 tablet at bedtime Orally Once a day for 14 days 06/25/2022 Not-Taking Immunizations Vaccine Route Administration Date Status Comme [...] Problem Status W/U Status Risk Notes Problem 8923078 Primary insomnia (F51.01) Active confirmed Problem 476379348 Other specified menopausal and perimenopausal disorders (N95.8) Active confirmed Problem 7181989 Aortic valve dis order (I35.9) Active confirmed Problem 817778333 Nonrheumatic aor tic valve stenosis (I35.0) Active confirmed Problem 748722996 Raynauds phenome non without gangrene (I73.00) Active confirmed Problem 79651406 Heart murmur (R01.1) Active confirmed Problem 763132120 Acquired spondylolisthesis (M43.10) Active confirmed Problem 15753024 Degeneration of lumbar or lumbosacral intervertebral disc (M51.37) Active confirmed Problem Loss of balance (541792817) Loss of balance (R26.89) Active confirmed Problem 05720664 Aortic ectasia, thoracic (I77.810) Active confirmed Problem 52303215 Spinal 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) Active confirmed Vital Signs Blood pressure diastolic 80 mm Hg 07/11/2025 Height 62.25 in 07/11/2025 Blood pressure systolic 142 mm Hg 07/11/2025 Weight 203 lbs 07/11/2025 BMI 36.83 kg/m2 07/11/2025 Encounters Encounter Location Date Provider Diagnosis Jesus Malave MD [address] [place] [id number] 07/26/2024 Jesus Malave Blood tests for routine general physical examination Z00.00 Jesus Malave MD [address] [place] [address] [id number] 07/02/2025 Jesus Malave Blood tests for routine general physical examination Z00.00 Jesus Malave MD [address] [place] [address] [id number] 08/03/2024 Jesus Malave Nonrheumatic aortic valve stenosis I35.0 ; Annual physical exam Z00.00 ; Degeneration of lumbar or lumbosacral intervertebral disc M51.37 and Depression screening Z13.31 Jesus Malave MD [address] [place] [id number] 03/29/2025 Jesus Malave Loss of balance R26. 89 and Heartburn R12 Jesus Malave MD [address] [place] [id number] 04/19/2025 Jesus Malave Heart murmur R01.1 a nd Spinal stenosis of lumbar region without neurogenic claudication M48.061 Jesus Malave MD [address] [place] [id number] 05/21/2025 Jesus Malave Heartburn R12 and Shortness of breath R06.02 Jesus Malave MD [address] [place] [id number] 07/11/2025 Jesus Malave Adult general medica l exam Z00.00 ; Shortness of breath R06.02 ; Heartburn R12 ; Pre-diabetes R73.09 and Depression screen Z13.31 Jesus Malave MD [address] [place] [id number] 07/24/2024 Jesus Malave MD [address] [place] [address] [id number] 09/04/2024 Jesus Malave MD [address] [place] [id number] 03/14/2025 Jesus Malave MD [address] [place] [id number] 04/23/2025 Jesus Malave MD [address] [place] [address] [id number] 05/23/2025 Jesus Malave Heartburn R12 Jesus Malave MD [address] [place] [address] [id number] 07/12/2025 Jesus Malave Other diseases of bronchus, not elsewhere classified J98.09 Assessments Encounter Date Diagnosis (ICD Code) Assessment Notes Treatment Notes Treatment Clinical Notes Section Notes 07/26/2024 Blood tests for routine general physical examination (ICD-10 - Z00.00) 07/02/2025 Blood tests for routine general physical examination (ICD-10 - Z00.00) 08/03/2024 Nonrheumatic aortic valve stenosis (ICD-10 - [...] likely cardiac. will refer to dr casas 07/11/2025 Adult general medical exam (ICD-10 - Z00.00) labs reviewed and discussed with patient 07/11/2025 Shortness of breath (ICD-10 - R06.02) XRAY ORDER GIVEN TO PATIENT, pending diagnostic testing [place] [facility] [place] 05/23/2025 Heartburn (ICD-10 - R12) 07/12/2025 Other diseases of bronchus, not elsewhere classified (ICD-10 - J98.09) 08/03/2024 Degeneration of lumbar or lumbosacral intervertebral disc (ICD-10 - M51.37) 04/19/2025 Spinal stenosis of lumbar region without neurogenic claudication (ICD-10 - M48.061) is stable so will encourage her to start exercising. 07/11/2025 Heartburn (ICD-10 - R12) has gone away with omeprazole, will continue current regiment 08/03/2024 Depression screening (ICD-10 - Z13.31) negative screen 07/11/2025 Pre-diabetes (ICD-10 - R73.09) would be a candidate for mounjouror 07/11/2025 Depression screen (ICD-10 - Z13.31) negative screen Plan Of Treatment Pending Test Test Name Order Date CT CHEST NO CONTRAST 07/12/2025 MRI BRAIN NO CONTRAST 03/29/2025 MRI LUMBAR SPINE NO CONTRAST 08/17/2022 XR CHEST 2 VIEW PA & LAT 07/11/2025 ECHO 06/19/2021 ECHO 06/25/2022 CTA CHEST FOR PE 07/16/2022 Carboxyhemoglobin 07/11/2025 CA stress test 07/19/2022 CA echo transthoracic complete 4 CA echo transthoracic complete 3 Next Appt Details Provider Name:Jesus Monzon ier, 08/15/2025 07:30:00 AM, [address] [place] [address], [address], [place], [place], [id number], Provider Name:Jesus Monzon ier, 07/10/2026 07:00:00 AM, [address] [place] [address], [address], [place], [place], [phone], Provider Name:Jesus Monzon ier, 07/17/2026 08:00:00 AM, [address] [place] [address], [address], [place], [place], [phone], Insurance Providers Payer Name Payer Address Payer Phone Subscriber Number Group Number Insured Name Patient Relationship to Insured Coverage Start Date Coverage End Date [employer] E [address] [place], [place] [id number] Becky Rios Self - patient is the insured MEDICARE [employer] [address] [place] [id number] Becky Rios Self - patient is the insured Medical (General) History Medical History History ICD Code 06/14/12 - Colonoscopy (repeat 10 yrs) 06/18/21 Mammo with additional view Surgical History Surgery Date(Month/Year) L-4 L-5 trans-facet foraminal decompress ion by Dr. Canales 02/2017
--- OUTSIDE RECORDS SUMMARY | 2025-07-24 19:40 | XMS_ITS | Patient Health Record ---
Author Organization [facility] Address [address] [place] [address] Care Team Providers Care Vp Genetic Name Role Phone Jesus Malave MD Primary Care Provider Ar Crisostomo Unavailable [phone] Reason For Referral No Information Medications Medication SIG (Take, Route, Frequency, Duration) Notes Start Date End Date Status Aspirin 81 MG Orally Active Prempro Active CeleBREX Active Problems Problem Type SNOMED Code ICD Code Onset Dates Problem Status W/U Status Risk Notes Problem Disorder of joint of ankle and/or foot (936572090) Arthritis - Degenerative (719.97) Active confirmed Problem Plantar fasciitis (897350051) Plantar Fasciitis (728.71) Active confirmed Problem Pain in limb (32340543) Pain in Limb (729.5) Active confirmed Problem Stress fracture (75646051) Stress fx (733.94) Active confirmed Plan Of Treatment No Information Insurance Providers Payer Name Payer Address Payer Phone Subscriber Number Group Number Insured Name Patient Relationship to Insured Coverage Start Date Coverage End Date [employer] [address] [place] [address] [id number] Becky Rios Self - patient is the insured Medical (General) History Medical History History ICD Code Raynauds syndrome Chicken pox Mumps Surgical History Surgery Date(Month/Year) section ,
== END ==
LOC: HO.CARD 14:43
PROVIDERS: PCP Internal Medicine; Visit Provider Internal Medicine
DX: I35.0 Nonrheumatic aortic (valve) stenosis (principal); R06.02 Shortness of breath
CPT/HCPCS: 93306

== ENCOUNTER → 2025-07-24 14:46 | Outpatient (BNV) | payer MEDICARE, SELFPAY | PROVIDERS: PCP Internal Medicine; Visit Provider Internal Medicine Cardiovascular Disease | DX: I35.0 Nonrheumatic aortic (valve) stenosis (principal); I35.1 Nonrheumatic aortic (valve) insufficiency; I77.810 Thoracic aortic ectasia | CPT/HCPCS: 93306 ==